=== PATIENT | male | born 1955 | race Caucasian/White ===

== ENCOUNTER → 2018-01-23 15:30 | Outpatient (CLI) | payer OTHER, SELFPAY ==
--- NOTE | 2018-01-23 15:37 | XR_ITS ---
XR ribs LT 2V HISTORY: ITS.REASON: LT CHEST WALL PAIN ORDERING PHYSICIAN: Nadir العراقي MD PATIENT AGE: 62 years Comparison: None FINDINGS: Multiple views of the Left ribs were obtained. No fracture or dislocation. No lytic or blastic change. IMPRESSION: Negative left RIBS. If pain persists, consider follow-up exam in 7-[address] with 3-D reformats.
--- NOTE | 2018-01-23 15:44 | XR_ITS ---
XR chest 2V HISTORY: ITS.REASON: LT CHEST WALL PAIN ORDERING PHYSICIAN: Nadir العراقي MD PATIENT AGE: 62 years COMPARISON: 03/18/2015 FINDINGS: The cardiomediastinal silhouette and pulmonary vascularity are within normal limits. There is increased density in the left lung base along the hemidiaphragm posteriorly with atelectasis or infiltrate.. Calcified granulomas present in the right midlung. Is hyperinflation with attenuation of the peripheral pulmonary vessels consistent with obstructive chronic bronchitis. No acute bony anomalies. IMPRESSION: COPD with patchy atelectasis or infiltrate in the left lung base
== END ==
PROVIDERS: Family Provider Family Medicine; PCP Family Medicine; Visit Provider Family Medicine
DX: R07.89 Other chest pain (principal)
CPT/HCPCS: 71046; 71100

== ENCOUNTER 2018-05-29 07:21 | Observation (INO) ==
[2018-05-29 07:45] LABS: Basophils % 0.5 % (0.1-2.0); Eosinophils # 0.1 K/mm3 (0.0-0.4); Hematocrit 49.6 % (42.0-52.0); Hemoglobin 16.8 g/dL (14.1-18.0); Lymphocytes # 2.2 K/mm3 (0.7-4.5); Lymphocytes % 33.9 % (10-50); Mean Corpuscular HGB Conc 33.9 g/dL (31.8-35.4); Mean Corpuscular Hemoglobin 32.7 pg (27.0-31.2); Mean Corpuscular Volume 96.3 fl (80-94); Mean Platelet Volume 6.4 fl (7.4-10.4); Monocytes # 0.4 K/mm3 (0.1-1.0); Monocytes % 6.9 % (1.7-9.3); Neutrophils # 3.6 K/mm3 (1.8-7.8); Neutrophils % 56.7 % (37.0-80.0); Platelet Count 219 K/mm3 (142-424); Red Blood Count 5.15 M/mm3 (4.60-6.20); Red Cell Distribution Width 12.2 % (11.5-17.5); White Blood Count 6.4 K/mm3 (4.8-10.8)
[2018-05-29 07:51] LABS: Prothrombin Time 10.3 seconds (9.4-11.8)
[2018-05-29 07:59] LABS: Anion Gap 15.2 mEq/L (5-15); Calcium 9.2 mg/dL (8.5-10.1); Potassium 4.2 mmoL/L (3.5-5.1)
--- NOTE | 2018-05-29 08:06 | Emergency Department Note ---
ED Disposition Referrals: Nadir العراقي MD [Primary Care Provider] - Attestation: On 05/29/18, the high probability of a clinically significant, sudden or life threatening deterioration of the following system(s) required my full and direct attention, intervention and personal management. The time I documented below is in addition to time spent performing reported procedures but includes the following listed in this critical care notation. Medical Decision Making Vital Signs: 05/29/18 07:22 05/29/18 07:48 05/29/18 07:51 Temperature 98.1 F Temperature Source Oral Pulse Rate [Left Radial] 163 H 152 H 74 Respiratory Rate 22 Blood Pressure [Right Arm] 136/86 127/72 113/78 Blood Pressure Mean [Right Arm] 102 90 89 Blood Pressure Source [Right Arm] Automatic Cuff Automatic Cuff Automatic Cuff Blood Pressure Position [Right Arm] Sitting Sitting Sitting 02 Sat by Pulse Oximetry 94 L Oxygen Delivery Method Room Air 05/29/18 07:54 05/29/18 08:02 05/29/18 08:23 Temperature Temperature Source Pulse Rate [Left Radial] 86 84 88 Respiratory Rate Blood Pressure [Right Arm] 122/72 112/79 100/80 L Blood Pressure Mean [Right Arm] 88 90 86 Blood Pressure Source [Right Arm] Automatic Cuff Automatic Cuff Automatic Cuff Blood Pressure Position [Right Arm] Sitting Sitting Sitting 02 Sat by Pulse Oximetry Oxygen Delivery Method - Lab Data Lab results reviewed: Yes: I reviewed the patient's lab results. Lab Results 05/29/18 07:40: WBC 6.4, RBC 5.15, Hgb 16.8, Hct 49.6, MCV 96.3 H, MCH 32.7 H, MCHC 33.9, RDW 12.2, Plt Count 219, MPV 6.4 L, Neut % (Auto) 56.7, Lymph % (Auto) 33.9, [place] % (Auto) 6.9, Eos % (Auto) 2.0, Baso % (Auto) 0.5, Neut # (A uto) 3.6, Lymph # (Auto) 2.2, [place] # (Auto) 0.4, Eos # (Auto) 0.1, Baso # (Auto) 0.0 05/29/18 07:40: Sodium 140, Potassium 4.2, Chloride 105, Carbon Dioxide 24, A nion Gap 15.2 H, BUN 15, Creatinine 0.97, Estimated Creat Clear 95, Estimated GFR 79, Est GFR ( Amer) 95, Glucose 153 H, Calcium 9.2, Troponin I 0.03 05/29/18 07:40: PT 10.3, INR 1.00 Result diagrams: 05/29/18 07:40 05/29/18 07:40 Orders (Tests/Meds): ED MEDICATIONS Generic Name Dose Route Start Last Admin Trade Name Freq PRN Reason Stop Dose Admin Diltiazem HCl 125 mg/ Sodium 125 mls @ 5 mls/hr 05/29/18 07:45 05/29/18 07:51 Chloride IV 06/28/18 07:44 5 mls/hr .Q25H TERRIE Administration Protocol 5 MG/HR Discontinued Medications Generic Name Dose Route Start Last Admin Trade Name Freq PRN Reason Stop Dose Admin Diltiazem HCl 20 mg 05/29/18 07:42 05/29/18 07:48 Cardizem 25mg/5ml Vial IV 05/29/18 07:43 20 mg ONCE ONE Administration ORDERS Category Date Time Status Chest XR -- portable [XR chest portable] Stat Exams 05/29/18 07:28 Taken TSH [Thyroid Stimulating Hormone] Stat Lab 05/29/18 07:40 Received ECG Request by /Kamar Stat Y 05/29/18 07:28 Stop Req - Radiology Data #1 Image(s): Chest Image Reviewed: Yes I reviewed the patient's radiology results, Yes I reviewed the patient's radiology image Preliminary Findings: Normal/NAD - ECG Data Tracing #1 EKG shows a atrial fibrillation with a ventricular rate of 155 bpm there is no major ST-T wave changes no evidence of acute ischemia normal axis no only EKG available for comparison Medical Decision Narrative: Patient was given IV Cardizem his heart rate decreased to 90 with steady blood with normal blood pressure. And felt well he had no complaints his EKG and monitor still shows an atrial fibrillation with a ventricular rate of 90. General Adult HPI - General Chief complaint: Arrhythmia/Palpitations Stated complaint: palpatations Mode of Arrival: Ambulatory Limitations: No Limitations Description of Symptoms (Recalled from ER Triage Doc. by RN): to ed per pvt car with c/o palpatations, "heart fluttering" starting last night. +SOB, +diaphoresis denies any chest pain. pt denies any hx of same. - History of Present Illness HPI narrative: Patient state he had an onset last night about 7 PM of rapid heartbeat no other symptoms no pain no shortness of breath no sweating no dyspnea he says he had an episode similar to this about 10 years ago P describes having some kind of shot in the doctor's office and it went away and he never had any problems since he denies any past cardiopulmonary history. Does not smoke he denies any intake of any stimulants. Relieving factors: none Exacerbating factors: none Associated symptoms: denies other symptoms. negative: chest pain, shortness of breath Treatments prior to arrival: none - Related Data Home Medications Medication Instructions Recorded Confirmed No Known Home Medications 05/29/18 05/29/18 Allergies Allergy/AdvReac Type Severity Reaction Status Date / Time Penicillin Allergy Unknown I-HIVES Uncoded 05/20/17 15:40 [facility] History - Hepatitis A Screen Drug use history?: No High risk sexual behaviors?: No History of sexually transmitted infection?: No Currently employed?: No Childcare worker?: No Do you have indoor plumbing?: Yes Do you have electricity?: Yes Attestation statement:: This patient has been screened for Hepatitis A risk factors. I have reviewed the patient's past medical history: Yes - Social History Alcohol Intake: current Alcohol Intake Frequency:: 3 or more drinks per day - Psychiatric History Expresses thoughts of harming self/others: None Suicide Plan Description: No Plan ROS Obtained: Yes All systems reviewed & no additional complaints - Constitutional Constitutional: Reports system reviewed and no additional complaints, except as docu - Eyes Eyes: Reports system reviewed and no additional complaints, except as docu - ENT Ears, Nose, Mouth, and Throat: Reports system reviewed and no additional complaints, except as docu - Cardiovascular Cardiovascular: Reports as per HPI, Denies chest pain, Denies diaphoresis, Reports irregular heart rhythm, Denies lightheadedness, Denies shortness of breath when lying down, Reports palpitations - Respiratory Respiratory: Yes system reviewed and no additional complaints, except as docu, Yes as per HPI, No cough, No dyspnea, No dyspnea on exertion - Gastrointestinal Gastrointestingal: Reports: system reviewed and no additional complaints, except as docu - Musculoskeletal Musculoskeletal: Reports decreased muscle mass - Integumentary/Breasts Skin/Breast: Reports system reviewed and no additional complaints, except as do cu - Neurologic Neurologic: Reports system reviewed and no additional complaints, except as docu - Endocrine Endocrine: Reports system reviewed and no additional complaints, except as docu - Hematologic/Lymphatic Henatologic/Lymphatic: Reports system reviewed and no additional complaints, except as docu Physical Exam - General General appearance: alert, in no apparent distress - Head Head exam: atraumatic, normocephalic, normal inspection - Eye Eye exam: Present: normal appearance, EOMI. Absent: scleral icterus, conjunctival redness, jaundice, conjunctival injection - ENT ENT exam: Present: normal exam, normal oropharynx, mucous membranes moist - Neck Neck exam: Present: normal inspection, full ROM. Absent: tenderness, meningismus, lymphadenopathy, thyromegaly - Chest Chest inspection: Present: normal inspection - Respiratory Respiratory exam: Present: normal lung sounds bilaterally. Absent: respiratory distress - Cardiovascular Cardiovascular exam: Present: tachycardia, irregular rhythm, normal heart sounds - Abdominal Exam Abdominal exam: Present: soft. Absent: distention, tenderness - Extremities Exam Extremities exam: Present: normal inspection, full ROM. Absent: tenderness, normal capillary refill, pedal edema, joint swelling, calf tenderness - Back Exam Back exam: Present: normal inspection, full ROM. Absent: tenderness - Neurological Exam Neurological exam: Present: alert, oriented X3, CN II-XII intact, normal gait. Absent: motor sensory deficit - Psychiatric Psychiatric exam: Present: normal affect, homicidal ideation - Skin Skin exam: Present: warm, intact, normal color. Absent: cyanosis - Lymphatic Lymphatic Findings: no adenopathy
--- NOTE | 2018-05-29 09:02 | Consult Report ---
Addendum entered and electronically signed by NIKI Dixon 05/29/18 15:19: Preliminary echo shows preserved LVEF. Telemetry now with bradycardia. Will reduce bisoprolol to 10 mg daily (or 5 mg BID). IV cardizem has been stopped. 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 Xarelto started. Would not proceed with cardioversion until patient has been on anticoagulation for 30 days. Monitor HR/BP overnight and adjust meds as needed. Original Note: History of Present Illness Consult date: 05/29/18 Requesting physician: Lita Correa Consult reason: atrial fibrillation Chief complaint: Palpitations, New onset A. fib Additional Medical History:: 1. ETOH use, daily 2. A. fib with RVR, 05/2018, newly diagnosed A. Questionable TIA many years ago with right side numbness but negative workup per patient 3. Family history of coronary artery disease in his mother with a heart attack in her 40s History of present illness: 62-year-old white male presented to the emergency department for continued palpitations. Patient relates onset of symptoms approximately 6 PM yesterday after bending over. States his heart rate began beating irregularly and rapid without cessation. Symptoms seemingly improved with rest but this a.m. when he awoke symptoms were still present and he decided to come in for evaluation. He does drink 3-6 beers per night and did take a generic Flonase yesterday for some sinus congestion. EKG in the ER showed atrial for ablation with a rapid ventricular response in the 150-160 bpm range. Patient's heart rate has responded well to IV Cardizem with current rate in the 90-100 bpm range. He denies chest pain, pressure or tightness. 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 TSH in the ER today is normal. Initial troponin is normal. Patient's is in the room with him and relates that patient does snore at night. Cardiology consulted for evaluation recommendations. [facility] History - *Social History Alcohol Intake: current Alcohol Intake Frequency:: 3 or more drinks per day - Psychiatric History Expresses thoughts of harming self/others: None Suicide Plan Description: No Plan Meds Home Medications Medication Instructions Recorded Confirmed Type No Known Home Medications 05/29/18 05/29/18 History Allergies Allergy/AdvReac Type Severity Reaction Status Date / Time Penicillins Allergy Hives Verified 05/29/18 09:06 Review of Systems - *Cardiovascular Reports rapid, pounding, or irregular heartbeat, Denies chest pain, Denies shortness of breath - *Respiratory Denies shortness of breath - *Gastrointestinal Denies abdominal pain, Denies loose stools - *Genitourinary Denies blood in urine - *Musculoskeletal Denies joint pain Exam Vital signs and Labs for Last 24 Hours: Temp Pulse Resp BP Pulse Ox 98.1 F 88 22 100/80 L 94 L 05/29/18 07:22 05/29/18 08:23 05/29/18 07:22 05/29/18 08:23 05/29/18 07:22 Laboratory Results - last 24 hr 05/29/18 07:40: WBC 6.4, RBC 5.15, Hgb 16.8, Hct 49.6, MCV 96.3 H, MCH 32.7 H, MCHC 33.9, RDW 12.2, Plt Count 219, MPV 6.4 L, Neut % (Auto) 56.7, Lymph % (Auto) 33.9, [place] % (Auto) 6.9, Eos % (Auto) 2.0, Baso % (Auto) 0.5, Neut # (Auto) 3.6, Lymph # (Auto) 2.2, [place] # (Auto) 0.4, Eos # (Auto) 0.1, Baso # (Aut o) 0.0 05/29/18 07:40: Sodium 140, Potassium 4.2, Chloride 105, Carbon Dioxide 24, Anion Gap 15.2 H, BUN 15, Creatinine 0.97, Estimated Creat Clear 95, Estimated GFR 79, Est GFR ( Amer) 95, Glucose 153 H, Calcium 9.2, Troponin I 0.03 05/29/18 07:40: PT 10.3, INR 1.00 05/29/18 07:40: TSH 1.45 I & O for Last 24 hours: Intake & Output 05/26/18 05/27/18 05/28/18 05/29/18 11:59 11:59 11:59 11:59 Weight 190 lb - *Routine Neck Exam Present: supple. Absent: JVD, carotid bruit - *Routine Respiratory Exam Present: CTA bilaterally. Absent: accessory muscle use, rales, rhonchi, wheezes - *Routine Cardiovascular Exam Present: irregularly irregular. Absent: murmur, gallop, rubs - *Routine Abdominal Exam Present: soft. Absent: tenderness, distended, guarding - *Routine Extremities Exam Absent: edema, calf tenderness - *Routine Neurological Exam Present: alert, oriented X3, moving all extremities Assessment and Plan (1) Atrial fibrillation with rapid ventricular response Current visit: Yes Status: Acute Category: Medical Code(s): I48.91 - Unspecified atrial fibrillation (2) Alcohol use Current visit: Yes Status: Acute Category: Social Hx Code(s): Z78.9 - Other specified health status (3) History of TIA (transient ischemic attack) Current visit: Yes Status: Acute Category: Medical Code(s): Z86.73 - Personal history of transient ischemic attack (TIA), and cerebral infarction without residual deficits - Assessment and plan all Dx Assessment and Plan for all problems:: 1. Obtain an echocardiogram to evaluate left ventricular size, function and valve status. 2. Add IV digoxin 0.25 mg x1 and assess response thereafter. 3. Continue IV Cardizem and titrate as blood pressure and heart rate allow. 4. Due to the patient's history of TIA (workup did not show CVA per patient), which places him at a CHADS-VASC score of 2, recommend starting a coagulation in the form of Xarelto 20 mg daily but will obtain CT of head prior to starting anticoagulation. 5. With history of snoring recommend workup for sleep apnea 6. With history of daily alcohol use, recommend cessation or severe reduction in use. 7. Further recommendations to follow pending above results.
--- NOTE | 2018-05-29 09:59 | Pharmacy Consult Notes ---
[facility] Pharmacy VTE Monitoring - Patient Demographics Admission date: 05/29/18 Report Date: 05/29/18 Time: 09:59 Allergies/Adverse Reactions: Patient Allergies Penicillins Allergy (Verified 05/29/18 09:06) Alex Height: 1.85 m Weight: 86.183 kg Patient Problems: Current Active Problems Atrial fibrillation with rapid ventricular response (Acute) Alcohol use (Acute) History of TIA (transient ischemic attack) (Acute) - VTE Risk Labs: VTE Related Lab Results Hgb 16.8 g/dL (14.1-18.0) 05/29/18 07:40 Hct 49.6 % (42.0-52.0) 05/29/18 07:40 Plt Count 219 K/mm3 (142-424) 05/29/18 07:40 PT 10.3 seconds (9.4-11.8) 05/29/18 07:40 INR 1.00 (0.9-1.1) 05/29/18 07:40 BUN 15 mg/dL (7-18) 05/29/18 07:40 Creatinine 0.97 mg/dL (0.70-1.30) 05/29/18 07:40 Estimated Creat Clear 95 mL/min (50-200) 05/29/18 07:40 - Prophylaxis VTE Prophylaxis Ordered?: Yes Types of VTE Prophylaxis: TEDS Knee High Location of Applied Device: Bilateral Lower Extremeties - VTE Diagnosis Confirmed Treatment or plan recommended: Continue Current Treatment
--- NOTE | 2018-05-29 10:45 | History & Physical Report ---
*Admission Date: 05/29/18 <Evelyn Lazo 05/29/18 10:45> *Chief complaint: palpitations <Evelyn Lazo 05/29/18 11:05> *History of present illness: Mr. Munoz is a 62-year-old white male who presented to the emergency department for palpitations. Patient states symptoms started approximately 7 PM yesterday after bending over outside while grilling. He states his heart rate began beating irregularly and rapid without cessation. This continued throughout the night and into the morning. He decided to come in for evaluation. An EKG in the ER showed atrial fib with a rapid ventricular response in the 150-160 bpm range. He was started on IV Cardizem and his HR improved and decreased into the 90-100 bpm range. He denies chest pain, pressure or tightness. 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 TSH in the ER today was normal. Initial troponin was normal. Patient's is in the room with him and relates that patient does snore at night. He does drink 3-6 beers per night and did take a generic Flonase yesterday for some sinus congestion. Cardiology was consulted for evaluation recommendations. <Evelyn Lazo 05/29/18 12:15> [facility] History Medical History: Reports:: Seizures, Transient Ischemic Attacks (TIA) <Evelyn Lazo 05/29/18 11:05> Other Surgeries: Yes: Hernia Repair <Evelyn Lazo 05/29/18 11:05> - *Social History Smoking Status: Never smoker <Evelyn Lazo 05/29/18 12:15> Alcohol Intake: current <Evelyn Lazo 05/29/18 10:45> Alcohol Intake Frequency:: 3 or more drinks per day <Evelyn Lazo 05/29/18 10:45> - Psychiatric History Expresses thoughts of harming self/others: None <Evelyn Lazo 05/29/18 10:45> Suicide Plan Description: No Plan <Evelyn Lazo 05/29/18 10:45> *Family Hx:: Cancer, Coronary Artery Disease <Evelyn Lazo 05/29/18 11:05> Review of Systems - Constitutional Denies chills, Denies weakness <Evelyn Lazo - 05/29/18 12:15> - Eyes Denies blurry vision, Denies double vision [facility] 12:15> - ENT Denies nasal congestion, Denies sore throat <[facility] 05/29/18 12:15> - *Cardiovascular Reports rapid, pounding, or irregular heartbeat, Denies chest pain, Denies shortness of breath <[facility] 05/29/18 12:15> - *Respiratory Denies cough, Denies shortness of breath <[facility] 05/29/18 12:15> - *Gastrointestinal Denies abdominal pain, Denies loose stools, Denies nausea, Denies vomiting <[facility] 05/29/18 12:15> - *Genitourinary Denies difficulty urinating, Denies painful urination <[facility] 05/29/18 12:15> - *Musculoskeletal Denies joint pain, Denies body aches <[facility] 05/29/18 12:15> - *Neurologic Reports tingling (right arm for the past few years), Denies headache(s), Denies dizziness, Denies weakness <CliftonEvelyn - 05/29/18 12:15> Meds Home Medications Medication Instructions Recorded Confirmed Type No Known Home Medications 05/29/18 05/29/18 History <SunnyLita 05/29/18 16:50> Allergies Allergy/AdvReac Type Severity Reaction Status Date / Time Penicillins Allergy Hives Verified 05/29/18 09:06 <SunnyLita 05/29/18 16:50> Exam Vital signs and Labs for Last 24 Hours: Temp Pulse Resp BP Pulse Ox 98 F 105 H 12 128/80 97 05/29/18 12:00 05/29/18 12:00 05/29/18 12:00 05/29/18 12:00 05/29/18 12:00 Laboratory Results - last 24 hr 05/29/18 07:40: WBC 6.4, RBC 5.15, Hgb 16.8, Hct 49.6, MCV 96.3 H, MCH 32.7 H, MCHC 33.9, RDW 12.2, Plt Count 219, MPV 6.4 L, Neut % (Auto) 56.7, Lymph % (Auto) 33.9, Peach % (Auto) 6.9, Eos % (Auto) 2.0, Baso % (Auto) 0.5, Neut # (Auto) 3.6, Lymph # (Auto) 2.2, Peach # (Auto) 0.4, Eos # (Auto) 0.1, Baso # (Auto) 0.0 05/29/18 07:40: Sodium 140, Potassium 4.2, Chloride 105, Carbon Dioxide 24, Anion Gap 15.2 H, BUN 15, Creatinine 0.97, Estimated Creat Clear 95, Estimated GFR 79, Est GFR ( Amer) 95, Glucose 153 H, Calcium 9.2, Troponin I 0.03 05/29/18 07:40: PT 10.3, INR 1.00 05/29/18 07:40: TSH 1.45 <Sound,Lita - 05/29/18 16:50> Temp Pulse Resp BP Pulse Ox 98.5 F 111 H 18 133/82 97 05/29/18 10:36 05/29/18 10:36 05/29/18 10:36 05/29/18 10:36 05/29/18 10:36 Laboratory Results - last 24 hr 05/29/18 07:40: WBC 6.4, RBC 5.15, Hgb 16.8, Hct 49.6, MCV 96.3 H, MCH 32.7 H, MCHC 33.9, RDW 12.2, Plt Count 219, MPV 6.4 L, Neut % (Auto) 56.7, Lymph % (Auto) 33.9, Peach % (Auto) 6.9, Eos % (Auto) 2.0, Baso % (Auto) 0.5, Neut # (Auto) 3.6, Lymph # (Auto) 2.2, Peach # (Auto) 0.4, Eos # (Auto) 0.1, Baso # (Auto) 0.0 05/29/18 07:40: Sodium 140, Potassium 4.2, Chloride 105, Carbon Dioxide 24, Anion Gap 15.2 H, BUN 15, Creatinine 0.97, Estimated Creat Clear 95, Estimated GFR 79, Est GFR ( Amer) 95, Glucose 153 H, Calcium 9.2, Troponin I 0.03 05/29/18 07:40: PT 10.3, INR 1.00 05/29/18 07:40: TSH 1.45 <Evelyn Lazo 05/29/18 12:15> I & O for Last 24 hours: Intake & Output 05/27/18 05/28/18 05/29/18 05/30/18 11:59 11:59 11:59 11:59 Intake Total 240 / 240 Balance 240 / 240 Weight 191 lb 3 oz <Lita Correa 05/29/18 16:50> Intake & Output 05/26/18 05/27/18 05/28/18 05/29/18 11:59 11:59 11:59 11:59 Weight 191 lb 3 oz <Evelyn Lazo 05/29/18 10:45> - Constitutional no acute distress <Evelyn Lazo 05/29/18 12:15> - *Routine HEENT Exam Head: Present: normocephalic <Evelyn Lazo 05/29/18 12:15> Eye: Present: EOMI, PERRL <Evelyn Lazo 05/29/18 12:15> ENT: Present: mucous membranes moist <Evelyn Lazo 05/29/18 12:15> - *Routine Neck Exam Present: supple. Absent: lymphadenopathy <Evelyn Lazo 05/29/18 12:15> - *Routine Respiratory Exam Present: CTA bilaterally <Evelyn Lazo 05/29/18 12:15> - *Routine Cardiovascular Exam Present: irregularly irregular <Evelyn Lazo 05/29/18 12:15> - *Routine Abdominal Exam Present: soft, normoactive bowel sounds. Absent: tenderness <Evelyn Lazo 05/29/18 12:15> - *Routine Extremities Exam Absent: cyanosis, clubbing, edema <Evelyn Lazo 05/29/18 12:15> - *Routine Skin Exam Present: warm. Absent: rash <Evelyn Lazo 05/29/18 12:15> - *Routine Neurological Exam Present: alert, oriented X3, CN II-XII intact. Absent: sensory deficit, motor deficit <Evelyn Lazo 05/29/18 12:15> H&P: Result - Impressions CXR - No prominent findings. There is question suggestion of subtle hazy appearance left infrahilar region towards left lower lobe.- Most likely technique along with perhaps mild atelectasis,. Difficult to exclude subtle infiltrate but correlation required, otherwise the chest unremarkable. Heart upper normal in size. No CHF. Head CT No acute appearing intracranial findings. Old infarct at right frontal lobe- unchanged since 2015... Small 4 x 5 mm lacunar infarct at lateral margin of the left thalamus. Favor old rather than recent, but has developed since 2015 studies. <Evelyn Lazo - 05/29/18 12:15> Assessment and Plan (1) Atrial fibrillation with rapid ventricular response Current visit: Yes Status: Acute Category: Medical Code(s): I48.91 - Unspecified atrial fibrillation (2) Alcohol use Current visit: Yes Status: Acute Category: Social Hx Code(s): Z78.9 - Other specified health status (3) History of TIA (transient ischemic attack) Current visit: Yes Status: Acute Category: Medical Code(s): Z86.73 - Personal history of transient ischemic attack (TIA), and cerebral infarction w ithout residual deficits <Evelyn Lazo - 05/29/18 12:11> (1) Atrial fibrillation with rapid ventricular response Current visit: Yes Status: Acute Category: Medical Code(s): I48.91 - Unspecified atrial fibrillation (2) Alcohol use Current visit: Yes Status: Acute Category: Social Hx Code(s): Z78.9 - Other specified health status (3) History of TIA (transient ischemic attack) Current visit: Yes Status: Acute Category: Medical Code(s): Z86.73 - Personal history of transient ischemic attack (TIA), and cerebral infarction without residual deficits <Lita Correa - 05/29/18 16:50> - Assessment and plan all Dx Assessment and Plan for all problems:: gave one dose of lovenox for anticoagulation. started on xarelto 20 mg QD. Patient was on and off the drip now. Will give him PO cardizem. Possible dc tomorrow. <Lita Correa - 05/29/18 16:50> Cardiology has seen the patient and ordered an echocardiogram. They gave him a dose of IV digoxin 0.25 mg x1 and plan to continue IV Cardizem and titrate as blood pressure and heart rate allow. Due to the patient's history of TIA, they recommend starting anticoagulation in the form of Xarelto 20 mg daily. Will discuss further care with Dr. Correa. <Evelyn Lazo - 05/29/18 12:15>
--- NOTE | 2018-05-30 09:30 | Discharge Summary ---
General - General Admission date:: 05/29/18 Discharge date: 05/30/18 HPI HPI: Mr. Munoz is a 62-year-old white male who presented to the emergency department for palpitations. Patient states symptoms started approximately 7 PM yesterday after bending over outside while grilling. He states his heart rate began beating irregularly and rapid without cessation. This continued throughout the night and into the morning. He decided to come in for evaluation. An EKG in the ER showed atrial fib with a rapid ventricular response in the 150-160 bpm range. He was started on IV Cardizem and his HR improved and decreased into the 90-100 bpm range. He denies chest pain, pressure or tightness. 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 TSH in the ER today was normal. Initial troponin was normal. Patient's is in the room with him and relates that patient does snore at night. He does drink 3-6 beers per night and did take a generic Flonase yesterday for some sinus congestion. Cardiology was consulted for evaluation recommendations. Hospital Course Hospital Course: Patient was admitted to our facility for new onset A.Fib and was started on Cardizem drip. He was weaned off the drip and started on PO cardizem. He was also started on Xarelto for his anticoagulation after one dose of lovenox in the hospital given his prior TIA. His CHADS-VAsc score is 3. Patient is stable but still in A.fib today upon discharge but rate controlled with bisprolol and cardizem. He was given 2 weeks supply of Xarelto and advised to f/u in office in a week for getting this medication approved. He voiced understanding. Objective Vital signs: Temp Pulse Resp BP Pulse Ox 97.7 F 74 17 121/69 99 05/30/18 07:38 05/30/18 07:38 05/30/18 07:38 05/30/18 07:38 05/30/18 07:38 - *Routine HEENT Exam Head: Present: normocephalic Eye: Present: EOMI ENT: Present: mucous membranes moist - *Routine Neck Exam Present: supple - *Routine Respiratory Exam Present: CTA bilaterally - *Routine Cardiovascular Exam Present: RRR - *Routine Abdominal Exam Present: soft, normoactive bowel sounds - *Routine Skin Exam Present: intact - *Routine Neurological Exam Present: alert, oriented X3 DS: Diagnosis - Discharge Diagnosis (1) Atrial fibrillation with rapid ventricular response Status: Acute (2) Alcohol use Status: Acute (3) History of TIA (transient ischemic attack) Status: Acute Discharge Plan - Patient Discharge Instructions ACTIVITY: Continue current activity DIET: continue same diet Additional Instructions: 2 weeks supply of xarelto samples given to patient today. Will work on getting in approved next office visit. - Follow up Plan Follow up with: Nadir العراقي MD [Primary Care Provider] - 1 week Disposition: Home, Self-Senior Living Medications: Home Medications Medication Instructions Recorded Confirmed Type Bisoprolol Fumarate [Zebeta 5mg 5 mg PO BID 30 Days #60 tablet 05/30/18 Rx tablet] Rivaroxaban [Xarelto 10mg tablet] 20 mg PO QPMWM 30 Days #30 tablet 05/30/18 Rx dilTIAZem HCl [Cardizem 180mg ER 180 mg PO DAILY 30 Days #30 05/30/18 Rx capsule] cap.er.24h Prescriptions/Medication Reconciliation: New Bisoprolol Fumarate [Zebeta 5mg tablet] 5 mg PO BID 30 Days #60 tablet dilTIAZem HCl [Cardizem 180mg ER capsule] 180 mg PO DAILY 30 Days #30 cap.er.24h Rivaroxaban [Xarelto 10mg tablet] 20 mg PO QPMWM 30 Days #30 tablet
== END 2018-05-30 10:47 | disposition home or self-care (01) ==
LOC: ER 07:21 → 2ND 07:21
PROVIDERS: ADMIT Emergency Medicine; ATTEND Emergency Medicine
CPT/HCPCS: 70470; 71010; 71045; 80048; 84443; 84484; 85025; 85610; 93005; 93306; 96365; 96375; 99285; G0378; Q9967

== ENCOUNTER 2018-08-24 21:25 | Observation (INO) ==
--- NOTE | 2018-08-24 21:50 | Emergency Department Note ---
ED Disposition Clinical Impression: Colitis, BRBPR (bright red blood per rectum) Disposition: Home, Self-Care Condition on Discharge: Good Instructions: DI for Colitis Additional Instructions: fluids and call pcp in am for follow up - hold angleralto at this time Referrals: Nadir العراقي MD [Primary Care Provider] - - Critical Care Critical Care Time: No Attestation: On , the high probability of a clinically significant, sudden or life th reatening deterioration of the following system(s) required my full and direct attention, intervention and personal management. The time I documented below is in addition to time spent performing reported procedures but includes the following listed in this critical care notation. Medical Decision Making - Medical Records Medical records reviewed: Yes: I reviewed the patient's medical records. - Chun Inquiry Pt receiving controlled substance: No Vital Signs: 08/24/18 21:27 08/24/18 21:33 08/24/18 22:03 Temperature 98.1 F 98.1 F Temperature Source Oral Oral Pulse Rate [Right Radial] 66 66 70 Respiratory Rate 18 18 18 Blood Pressure [Right Arm] 140/79 140/79 145/74 H Blood Pressure Mean [Right Arm] 99 99 97 Blood Pressure Source [Right Arm] Automatic Cuff Blood Pressure Position [Right Arm] Supine 02 Sat by Pulse Oximetry 93 L 93 L 95 Oxygen Delivery Method Room Air - Lab Data Lab results reviewed: Yes: I reviewed the patient's lab results. Lab Results 08/24/18 21:45: Urine Color Yellow, Urine Appearance Clear, Urine pH 6.5, Ur Specific Belcher 1.020, Urine Protein Negative, Urine Glucose (UA) Negative, Urine Ketones Negative, Urine Blood Trace-l, Urine Nitrate Negative, Urine Bilirubin Negative, Urine Urobilinogen 0.2, Ur Leukocyte Esterase Negative, Urine WBC Occasional, Ur Squamous Epith Cells Occasional, Urine Bacteria Trace 08/24/18 21:45: Stool Occult Blood Positive A 08/24/18 21:45: WBC 7.0, RBC 4.64, Hgb 14.9, Hct 43.3, MCV 93.4, MCH 32.1 H, MCHC 34.3, RDW 12.1, Plt Count 246, MPV 6.9 L, Neut % (Auto) 52.9, Lymph % (Auto) 36.7, Wells % (Auto) 7.5, Eos % (Auto) 2.4, Baso % (Auto) 0.5, Neut # (Auto) 3.7, Lymph # (Auto) 2.6, Wells # (Auto) 0.5, Eos # (Auto) 0.2, Baso # (Auto) 0.0 08/24/18 21:45: Sodium 140, Potassium 4.2, Chloride 105, Carbon Dioxide 26, Anion Gap 13.2, BUN 18, Creatinine 1.00, Estimated Creat Clear 93, Estimated GFR 76, Est GFR ( Amer) 92, Glucose 102, Calcium 9.1, Total Bilirubin 0.4, AST 14 L, ALT 28, Alkaline Phosphatase 57, Total Protein 7.4, Albumin 3.6, Faye bulin 3.8 H, Albumin/Globulin Ratio 0.9 L, Amylase 39, Lipase 136 Result diagrams: 08/24/18 21:45 08/24/18 21:45 Orders (Tests/Meds): ED MEDICATIONS Generic Name Dose Route Start Last Admin Trade Name Freq PRN Reason Stop Dose Admin Sodium Chloride 1,000 mls @ 999 mls/hr 08/24/18 21:45 08/24/18 21:53 Sod Chlor 0.9% 1000ml Bag IV 08/24/18 22:45 999 mls/hr .Q1H1M TERRIE Administration Sodium Chloride 10 ml 08/24/18 21:39 Saline Flush 10ml Syringe IV 09/23/18 21:38 NEEDED PRN Maintain IV Site ORDERS Category Date Time Status CT abdomen pelvis w con Stat Cat Scan 08/24/18 21:39 Ordered - CT Data CT Scan: Abdomen, Pelvis Time Received: 00:[address] Reviewed: Yes: I have viewed the radiologist's interpretation Preliminary Findings: Abnormal (see report) Nausea/Vomiting/Diarrhea HPI - General Chief complaint: Abdominal Pain Stated complaint: abd cramping ,blood in stools Time Seen by Provider: 08/24/18 21:45 Mode of Arrival: Family Vehicle Source of Information: Patient, Spouse, Medical Record Limitations: No Limitations Description of Symptoms (Recalled from ER Triage Doc. by RN): pt states that approx 1 hour ago he began having abdominal cramping and then went to the bathroom and had a large loose stool and it was a beet red color. pt states he takes xarelto for afib. pt states he had pepto 1 week ago. pt denies other sy mptoms. states this hasnt ever happened before - History of Present Illness HPI Narrative: a few hrs ago had crampy abd pain with brrb - no hx of same - on meds for a fib including ed LEROY complaint: abdominal pain Onset (ago): hour(s) Description of Diarrhea: bloody Associated Abdominal Pain: Yes Location of pain: diffuse Severity: moderate Quality: cramping Context: anticoagulant use Associated symptoms: denies other symptoms - Related Data Home Medications Medication Instructions Recorded Confirmed Bisoprolol Fumarate [Bisoprolol 5 mg PO BID 08/24/18 08/24/18 5mg Tablet] Rivaroxaban [Xarelto 20mg Tablet] 20 mg PO DAILY 08/24/18 08/24/18 Allergies Allergy/AdvReac Type Severity Reaction Status Date / Time Penicillins Allergy Hives Verified 08/24/18 21:38 [facility] History - Hepatitis A Screen Drug use history?: No High risk sexual behaviors?: No History of sexually transmitted infection?: No Currently employed?: No Childcare worker?: No Do you have indoor plumbing?: Yes Do you have electricity?: Yes Attestation statement:: This patient has been screened for Hepatitis A risk factors. I have reviewed the patient's past medical history: Yes Medical History: Reports:: Atrial Fibrillation, Transient Ischemic Attacks (TIA) Denies:: Cancer, Diabetes Mellitus Type 1, Diabetes Mellitus Type 2, MRSA Laterality Cases: Bilateral: Arthroscopy Knee Other Surgeries: Yes: Hernia Repair Amputation: No Fractures: No - Social History Smoking Status: Former smoker Alcohol Intake: former Alcohol Intake Frequency:: 0-2 drinks per day Substance Use Type: denies use Occupational Status: employed Housing: house Household Members: spouse - Psychiatric History Expresses thoughts of harming self/others: None Suicide Plan Description: No Plan Family Hx:: Cancer, Coronary Artery Disease Comment: Mother-CAD ROS Obtained: Yes All systems reviewed & no additional complaints - Constitutional Constitutional: Denies fever(s) - Eyes Eyes: Denies change in vision - ENT Ears, Nose, Mouth, and Throat: Denies sore throat - Cardiovascular Cardiovascular: Denies chest pain - Respiratory Respiratory: No cough - Gastrointestinal Gastrointestingal: Reports: abdominal pain, bright red blood in stools. Denies: vomiting - Genitourinary Male Genitourinary: Denies hematuria - Musculoskeletal Musculoskeletal: Denies joint pain, Denies joint swelling - Integumentary/Breasts Skin/Breast: Denies rash - Neurologic Neurologic: Denies seizure-like activity Physical Exam - General General appearance: alert - Head Head exam: normocephalic - Eye Eye exam: Present: PERRL, EOMI - ENT ENT exam: Present: mucous membranes moist - Neck Neck exam: Present: trachea midline - Respiratory Respiratory exam: Present: normal lung sounds bilaterally. Absent: respiratory distress - Cardiovascular Cardiovascular exam: Present: regular rate, systolic murmur - Abdominal Exam Abdominal exam: Present: soft. Absent: tenderness, guarding Abdominal tenderness: Present: diffuse, mild - Extremities Exam Extremities exam: Present: full ROM - Neurological Exam Neurological exam: Present: alert, oriented X3, CN II-XII intact - Psychiatric Psychiatric exam: Present: normal affect - Skin Skin exam: Absent: rash
[2018-08-24 21:55] LABS: Microscopic, Urine URINE MICROSCOPIC (MICROSCOPIC)
[2018-08-24 21:57] LABS: Basophils % 0.5 % (0.1-2.0); Eosinophils # 0.2 K/mm3 (0.0-0.4); Eosinophils % 2.4 % (0.1-12.0); Hematocrit 43.3 % (42.0-52.0); Hemoglobin 14.9 g/dL (14.1-18.0); Lymphocytes # 2.6 K/mm3 (0.7-4.5); Lymphocytes % 36.7 % (10-50); Mean Corpuscular HGB Conc 34.3 g/dL (31.8-35.4); Mean Corpuscular Hemoglobin 32.1 pg (27.0-31.2); Mean Corpuscular Volume 93.4 fl (80-94); Mean Platelet Volume 6.9 fl (7.4-10.4); Monocytes # 0.5 K/mm3 (0.1-1.0); Monocytes % 7.5 % (1.7-9.3); Neutrophils # 3.7 K/mm3 (1.8-7.8); Neutrophils % 52.9 % (37.0-80.0); Platelet Count 246 K/mm3 (142-424); Red Blood Count 4.64 M/mm3 (4.60-6.20); Red Cell Distribution Width 12.1 % (11.5-17.5)
[2018-08-24 22:04] LABS: Appearance,Urine CLEAR (Clear); Bilirubin,Urine Negative (Negative); Blood, Urine TRACE-L (Negative); Color,Urine YELLOW (Yellow); Glucose,Urine (UA) Negative (Negative); Ketones,Urine Negative (Negative); Leukocyte Esterase,Urine Negative (Negative); PH,Urine 6.5 (5.0-8.5); Protein,Urine Negative (Negative); Urobilinogen,Urine 0.2 EU/dl (0.2)
[2018-08-24 22:10] LABS: Albumin Level 3.6 gm/dL (3.4-5.0); Albumin/Globulin Ratio 0.9 (1.1-1.8); Anion Gap 13.2 mEq/L (5-15); Bilirubin,Total 0.4 mg/dL (0.2-1.0); Calcium 9.1 mg/dL (8.5-10.1); Globulin 3.8 gm/dl (1.3-3.2); Potassium 4.2 mmoL/L (3.5-5.1); Total Protein,Serum 7.4 gm/dL (6.4-8.2)
[2018-08-24 22:20] LABS: Bacteria,Urine Trace /lpf; Squamous Epithelial Cell,Urine Occasional #/hpf (0-5); WBC,Urine Occasional #/hpf (0-3)
[2018-08-25 00:37] LABS: Basophils # 0.1 K/mm3 (0-0.2); Basophils % 0.5 % (0.1-2.0); Eosinophils # 0.1 K/mm3 (0.0-0.4); Eosinophils % 1.3 % (0.1-12.0); Lymphocytes # 3.8 K/mm3 (0.7-4.5); Lymphocytes % 37.4 % (10-50); Mean Corpuscular HGB Conc 34.2 g/dL (31.8-35.4); Mean Corpuscular Hemoglobin 32.4 pg (27.0-31.2); Mean Platelet Volume 6.8 fl (7.4-10.4); Monocytes # 0.6 K/mm3 (0.1-1.0); Neutrophils # 5.5 K/mm3 (1.8-7.8); Neutrophils % 54.9 % (37.0-80.0); Platelet Count 254 K/mm3 (142-424); Red Cell Distribution Width 12.2 % (11.5-17.5); White Blood Count 10.1 K/mm3 (4.8-10.8)
[2018-08-25 00:48] LABS: Hemoglobin 12.7 g/dL (14.1-18.0)
[2018-08-25 06:48] LABS: Basophils % 0.3 % (0.1-2.0); Eosinophils % 0.5 % (0.1-12.0); Hematocrit 31.5 % (42.0-52.0); Lymphocytes # 1.7 K/mm3 (0.7-4.5); Lymphocytes % 26.1 % (10-50); Mean Corpuscular Volume 94.2 fl (80-94); Mean Platelet Volume 7.4 fl (7.4-10.4); Monocytes # 0.3 K/mm3 (0.1-1.0); Monocytes % 5.2 % (1.7-9.3); Neutrophils # 4.3 K/mm3 (1.8-7.8); Neutrophils % 67.8 % (37.0-80.0); Platelet Count 193 K/mm3 (142-424); Red Blood Count 3.35 M/mm3 (4.60-6.20); Red Cell Distribution Width 12.3 % (11.5-17.5); White Blood Count 6.4 K/mm3 (4.8-10.8)
[2018-08-25 06:57] LABS: Anion Gap 12.2 mEq/L (5-15); Potassium 4.2 mmoL/L (3.5-5.1)
[2018-08-25 07:21] LABS: Hemoglobin 10.7 g/dL (14.1-18.0)
--- NOTE | 2018-08-25 07:24 | Pharmacy Consult Notes ---
[facility] Pharmacy VTE Monitoring - Patient Demographics Admission date: 08/24/18 Report Date: 08/25/18 Time: 07:24 Allergies/Adverse Reactions: Patient Allergies Penicillins Allergy (Verified 08/24/18 21:38) Hives Height: 1.83 m Weight: 86.183 kg Patient Problems: Current Active Problems Colitis (Acute) BRBPR (bright red blood per rectum) (Acute) - VTE Risk Labs: VTE Related Lab Results Hgb 10.7 g/dL (14.1-18.0) L D 08/25/18 06:25 Hct 31.5 % (42.0-52.0) L 08/25/18 06:25 Plt Count 193 K/mm3 (142-424) 08/25/18 06:25 BUN 16 mg/dL (7-18) 08/25/18 06:25 Creatinine 0.74 mg/dL (0.70-1.30) D 08/25/18 06:25 Estimated Creat Clear 93 mL/min (50-200) 08/25/18 06:25 Was VTE Risk Assessment Performed: Yes VTE Score: 2 VTE Risk Level: Very Low Risk - Prophylaxis VTE Prophylaxis Ordered?: Yes Types of VTE Prophylaxis: TEDS Knee High Location of Applied Device: Bilateral Lower Extremeties - VTE Diagnosis Confirmed Treatment or plan recommended: Continue Current Treatment
[2018-08-25 07:36] LABS: Calcium 7.8 mg/dL (8.5-10.1)
--- NOTE | 2018-08-25 08:47 | History & Physical Report ---
*Admission Date: 08/24/18 *Chief complaint: Colitis *History of present illness: Mr. Munoz is a 63yo WM with history of Afib treated with Xarelto. He reports he had been feeling fine until yesterday when he had a large, loose bloody BM at home and presented to the ED for further evaluation. Upon arrival, his labs were fairly unremarkable. His abdominal CT scan showed inflammatory/infectious changes as well as diverticulosis without diverticulitis and recommended colonoscopy for further evaluation. The initial plan was for discharge home from the ED and for him to followup with PCP as an outpatient, however, after an acute vasovagal episode with decreased bp and pulse as well as some brief mental status changes while in the ED, he was admitted for observation and further evaluation. This morning he does not feel much better. He has continued with multiple loose, bloody BM's overnight. He denies any pain or lightheadedness and notes only that he feels "very tired." His hemoglobin continues to trend down. [facility] [place] History Medical History: Reports:: Atrial Fibrillation, Seizures, Transient Ischemic Attacks (TIA) Denies:: Cancer, Diabetes Mellitus Type 1, Diabetes Mellitus Type 2, MRSA *Have you ever received a pneumonia vaccine?: No *Have you received a flu vaccine this season?: Yes Laterality Cases: Bilateral: Arthroscopy Knee Other Surgeries: Yes: Hernia Repair Amputation: No Fractures: No - *Social History Educational Level: Completed High School Smoking Status: Former smoker Alcohol Intake: former Alcohol Intake Frequency:: holidays/special occasions only Substance Use Type: denies use *Occupational Status:: employed Housing: house Household Members: spouse *Travel in the last 8 weeks: None - Psychiatric History Expresses thoughts of harming self/others: None Suicide Plan Description: No Plan Family Hx:: Cancer, Coronary Artery Disease Review of Systems - Constitutional Reports fatigue, Reports weakness, Denies body ache(s), Denies chills, Denies fever(s), Denies headache(s) - Eyes Denies change in vision - ENT Denies nasal congestion, Denies sore throat, Denies dizziness - *Cardiovascular Reports fainting, Denies chest pain, Denies shortness of breath, Denies irregular heart rhythm, Denies lightheadedness - *Respiratory Denies chest congestion, Denies cough - *Gastrointestinal Reports abdominal pain, Reports cramping, Reports loose stools, Reports bright, red blood in stools, Denies nausea, Denies vomiting - *Genitourinary Denies difficulty urinating - *Musculoskeletal Denies muscle weakness, Denies body aches - *Neurologic Reports fainting, Denies unsteadiness, Denies dizziness, Denies headache(s), Denies seizure-like activity - Hematologic/Lymphatic Denies enlarged lymph nodes Meds Home Medications Medication Instructions Recorded Confirmed Type Bisoprolol Fumarate [Bisoprolol 5 mg PO BID 08/24/18 08/24/18 History 5mg Tablet] Rivaroxaban [Xarelto 20mg Tablet] 20 mg PO DAILY 08/24/18 08/24/18 History Magnesium Oxide/Magnesium 300 mg PO DAILY 08/25/18 08/25/18 History [Magnesium 300 mg Capsule] Allergies Allergy/AdvReac Type Severity Reaction Status Date / Time Penicillins Allergy Hives Verified 08/24/18 21:38 Exam Vital signs and Labs for Last 24 Hours: Temp Pulse Resp BP Pulse Ox 98.1 F 74 17 99/63 L 100 08/25/18 08:00 08/25/18 08:00 08/25/18 08:00 08/25/18 08:00 08/25/18 08:00 Laboratory Results - last 24 hr 08/24/18 21:45: Urine Color Yellow, Urine Appearance Clear, Urine pH 6.5, Ur Specific [place] 1.020, Urine Protein Negative, Urine Glucose (UA) Negative, Urine Ketones Negative, Urine Blood Trace-l, Urine Nitrate Negative, Urine Bilirubin Negative, Urine Urobilinogen 0.2, Ur Leukocyte Esterase Negative, Urine WBC Occasional, Ur Squamous Epith Cells Occasional, Urine Bacteria Trace 08/24/18 21:45: Stool Occult Blood Positive A 08/24/18 21:45: WBC 7.0, RBC 4.64, Hgb 14.9, Hct 43.3, MCV 93.4, MCH 32.1 H, MCHC 34.3, RDW 12.1, Plt Count 246, MPV 6.9 L, Neut % (Auto) 52.9, Lymph % (Auto) 36.7, [place] % (Auto) 7.5, Eos % (Auto) 2.4, Baso % (Auto) 0.5, Neut # (A uto) 3.7, Lymph # (Auto) 2.6, [place] # (Auto) 0.5, Eos # (Auto) 0.2, Baso # (Auto) 0.0 08/24/18 21:45: Sodium 140, Potassium 4.2, Chloride 105, Carbon Dioxide 26, Anion Gap 13.2, BUN 18, Creatinine 1.00, Estimated Creat Clear 93, Estimated GFR 76, Est GFR ( Amer) 92, Glucose 102, Calcium 9.1, Total Bilirubin 0.4, AST 14 L, ALT 28, Alkaline Phosphatase 57, Total Protein 7.4, Albumin 3.6, Globulin 3.8 H, Albumin/Globulin Ratio 0.9 L, Amylase 39, Lipase 136 08/25/18 00:00: Stl Aeromonas (PCR) Not detected, Stl C. cayetanensis PCR Not detected, Stool Rotavirus (PCR) Not detected, Stl Adenov F 40/41 PCR Not detected, Stool Astrovirus (PCR) Not detected, Stool Campylobacter PCR Not detected, Stl C.difficile Tox PCR Not detected, Stool Cryptosporidium PCR Not detected, Stl E.coli Shiga Tox PCR Not detected, Stool E coli O157 PCR Not detected, Stl Enterotoxigenic E PCR Not detected, Stool EPEC (PCR) Not detected, Stool EAEC (PCR) Not detected, Stl E. histolytica PCR Not detected, Stool Giardia Lamblia PCR Not detected, Stool Salmonella PCR Not detected, Stool Sa povirus (PCR) Not detected, Stl P. shigelloides PCR Not detected, Stl Shigella/EIEC PCR Not detected, St Y.enterocolitica PCR Not detected, Stool Vibrio (PCR) Not detected, Stl Vibrio cholerae PCR Not detected, Stl Norovirus GI/GII PCR Not detected 08/25/18 00:00: Troponin I < 0.02 08/25/18 00:23: POC Glucose 97 08/25/18 00:30: WBC 10.1 D, RBC 3.90 L, Hgb 12.7 L D, Hct 37.0 L, MCV 95.0 H, MCH 32.4 H, MCHC 34.2, RDW 12.2, Plt Count 254, MPV 6.8 L, Neut % (Auto) 54.9, Lymph % (Auto) 37.4, [place] % (Auto) 6.0, Eos % (Auto) 1.3, Baso % (Auto) 0.5, Neut # (Auto) 5.5, Lymph # (Auto) 3.8, [place] # (Auto) 0.6, Eos # (Auto) 0.1, Baso # (Auto) 0.1 08/25/18 06:25: WBC 6.4 D, RBC 3.35 L, Hgb 10.7 L D, Hct 31.5 L, MCV 94.2 H, MCH 32.0 H, MCHC 34.0, RDW 12.3, Plt Count 193, MPV 7.4, Neut % (Auto) 67.8, Lymph % (Auto) 26.1, [place] % (Auto) 5.2, Eos % (Auto) 0.5, Baso % (Auto) 0.3, Neut # (Auto) 4.3, Lymph # (Auto) 1.7, [place] # (Auto) 0.3, Eos # (Auto) 0.0, Baso # (Auto) 0.0 08/25/18 06:25: Sodium 141, Potassium 4.2, Chloride 109 H, Carbon Dioxide 24, Anion Gap 12.2, BUN 16, Creatinine 0.74 D, Estimated Creat Clear 93, Estimated GFR 107, Est GFR ( Amer) 130 D, Glucose 110 H, Calcium 7.8 L D I & O for Last 24 hours: Intake & Output 08/22/18 08/23/18 08/24/18 08/25/18 11:59 11:59 11:59 11:59 Intake Total 3000 / 3000 Balance 3000 / 3000 Weight 190 lb Radiology Reports for the Last 24 Hours: 08/24/18 CT abdomen: IMPRESSION: 1. There is a long segment of thickening of the colon from the hepatic flexure to the mid transverse colon with mild stranding of the pericolic fat. This could be related to inflammatory or infectious change/colitis or even neoplasm. Colonoscopy may be of further value. 2. Diverticulosis. - Constitutional no acute distress - *Routine HEENT Exam Head: Present: normocephalic, atraumatic Eye: Present: PERRL, normal accommodation ENT: Present: mucous membranes moist - *Routine Neck Exam Present: supple, full ROM. Absent: lymphadenopathy, thyromegaly, tenderness - *Routine Respiratory Exam Present: CTA bilaterally - *Routine Cardiovascular Exam Present: RRR - *Routine Abdominal Exam Present: soft, normoactive bowel sounds. Absent: tenderness, distended, rebound, guarding, rigid, organomegaly, mass - *Routine Extremities Exam Present: full ROM, pulses intact. Absent: edema, calf tenderness - *Routine Neurological Exam Present: alert, oriented X3, moving all extremities, normal speech Assessment and Plan - Assessment and plan all Dx Assessment and Plan for all problems:: Will start levaquin and consult surgery.
[2018-08-25 12:41] LABS: Basophils % 0.2 % (0.1-2.0); Eosinophils # 0.1 K/mm3 (0.0-0.4); Eosinophils % 0.9 % (0.1-12.0); Hemoglobin 10.9 g/dL (14.1-18.0); Lymphocytes # 1.6 K/mm3 (0.7-4.5); Lymphocytes % 30.7 % (10-50); Mean Corpuscular HGB Conc 34.1 g/dL (31.8-35.4); Mean Corpuscular Hemoglobin 32.1 pg (27.0-31.2); Mean Corpuscular Volume 94.2 fl (80-94); Mean Platelet Volume 6.7 fl (7.4-10.4); Monocytes # 0.3 K/mm3 (0.1-1.0); Monocytes % 5.8 % (1.7-9.3); Neutrophils # 3.4 K/mm3 (1.8-7.8); Neutrophils % 62.4 % (37.0-80.0); Platelet Count 226 K/mm3 (142-424); Red Blood Count 3.39 M/mm3 (4.60-6.20); Red Cell Distribution Width 12.3 % (11.5-17.5); White Blood Count 5.4 K/mm3 (4.8-10.8)
--- NOTE | 2018-08-25 12:42 | Consult Report ---
*Admission Date: 08/24/18 *Chief complaint: Bloody bowel movements *History of present illness: The following is copied from admission history and physical: Mr. Munoz is a 63yo WM with history of Afib treated with Xarelto. He reports he had been feeling fine until yesterday when he had a large, loose bloody BM at home and presented to the ED for further evaluation. Upon arrival, his labs were fairly unremarkable. His abdominal CT scan showed inflammatory/infectious changes as well as diverticulosis without diverticulitis and recommended colonoscopy for further evaluation. The initial plan was for discharge home from the ED and for him to followup with PCP as an outpatient, however, after an acute vasovagal episode with decreased bp and pulse as well as some brief mental status changes while in the ED, he was admitted for observation and further evaluation. This morning he does not feel much better. He has continued with multiple loose, bloody BM's overnight. He denies any pain or lightheadedness and notes only that he feels "very tired." His hemoglobin continues to trend down. Patient has not had prior colonoscopy. Denies family history of colon cancer. Review of Systems - Constitutional Denies anorexia - Eyes Denies change in vision - ENT Denies abnormal hearing - *Cardiovascular Denies chest pain - *Respiratory Denies shortness of breath - *Gastrointestinal Denies abdominal pain - *Genitourinary Denies difficulty urinating - *Musculoskeletal Denies abnormal walking - *Neurologic Reports fainting, Reports weakness, Denies unsteadiness, Denies dizziness, Denies headache(s), Denies seizure-like activity, Denies dizziness [facility] History Medical History: Reports:: Atrial Fibrillation, Seizures, Transient Ischemic Attacks (TIA) Denies:: Cancer, Diabetes Mellitus Type 1, Diabetes Mellitus Type 2, MRSA *Have you ever received a pneumonia vaccine?: No *Have you received a flu vaccine this season?: Yes Laterality Cases: Bilateral: Arthroscopy Knee Other Surgeries: Yes: Hernia Repair Amputation: No Fractures: No - *Social History Educational Level: Completed High School Smoking Status: Former smoker Alcohol Intake: former Alcohol Intake Frequency:: holidays/special occasions only Substance Use Type: denies use *Occupational Status:: employed Housing: house Household Members: spouse *Travel in the last 8 weeks: None - Psychiatric History Expresses thoughts of harming self/others: None Suicide Plan Description: No Plan Family Hx:: Cancer, Coronary Artery Disease Meds Home Medications Medication Instructions Recorded Confirmed Type Bisoprolol Fumarate [Bisoprolol 5 mg PO BID 08/24/18 08/24/18 History 5mg Tablet] Rivaroxaban [Xarelto 20mg Tablet] 20 mg PO DAILY 08/24/18 08/24/18 History Magnesium Oxide/Magnesium 300 mg PO DAILY 08/25/18 08/25/18 History [Magnesium 300 mg Capsule] Allergies Allergy/AdvReac Type Severity Reaction Status Date / Time Penicillins Allergy Hives Verified 08/24/18 21:38 Exam Vital signs and Labs for Last 24 Hours: Temp Pulse Resp BP Pulse Ox 98.1 F 74 17 99/63 L 100 08/25/18 08:00 08/25/18 08:00 08/25/18 08:00 08/25/18 08:00 08/25/18 08:00 Laboratory Results - last 24 hr 08/24/18 21:45: Urine Color Yellow, Urine Appearance Clear, Urine pH 6.5, Ur Specific [place] 1.020, Urine Protein Negative, Urine Glucose (UA) Negative, Urine Ketones Negative, Urine Blood Trace-l, Urine Nitrate Negative, Urine Bilirubin Negative, Urine Urobilinogen 0.2, Ur Leukocyte Esterase Negative, Urine WBC Occasional, Ur Squamous Epith Cells Occasional, Urine Bacteria Trace 08/24/18 21:45: Stool Occult Blood Positive A 08/24/18 21:45: WBC 7.0, RBC 4.64, Hgb 14.9, Hct 43.3, MCV 93.4, MCH 32.1 H, MCHC 34.3, RDW 12.1, Plt Count 246, MPV 6.9 L, Neut % (Auto) 52.9, Lymph % (Auto) 36.7, [place] % (Auto) 7.5, Eos % (Auto) 2.4, Baso % (Auto) 0.5, Neut # (Auto) 3.7, Lymph # (Auto) 2.6, [place] # (Auto) 0.5, Eos # (Auto) 0.2, Baso # (Auto) 0.0 08/24/18 21:45: Sodium 140, Potassium 4.2, Chloride 105, Carbon Dioxide 26, Anion Gap 13.2, BUN 18, Creatinine 1.00, Estimated Creat Clear 93, Estimated GFR 76, Est GFR ( Amer) 92, Glucose 102, Calcium 9.1, Total Bilirubin 0.4, AST 14 L, ALT 28, Alkaline Phosphatase 57, Total Protein 7.4, Albumin 3.6, Globulin 3.8 H, Albumin/Globulin Ratio 0.9 L, Amylase 39, Lipase 136 08/25/18 00:00: Stl Aeromonas (PCR) Not detected, Stl C. cayetanensis PCR Not detected, Stool Rotavirus (PCR) Not detected, Stl Adenov F 40/41 PCR Not detected, Stool Astrovirus (PCR) Not detected, Stool Campylobacter PCR Not detected, Stl C.difficile Tox PCR Not detected, Stool Cryptosporidium PCR Not detected, Stl E.coli Shiga Tox PCR Not detected, Stool E coli O157 PCR Not detected, Stl Enterotoxigenic E PCR Not detected, Stool EPEC (PCR) Not detected, Stool EAEC (PCR) Not detected, Stl E. histolytica PCR Not detected, Stool Giardia Lamblia PCR Not detected, Stool Salmonella PCR Not detected, Stool Sapovirus (PCR) Not detected, Stl P. shigelloides PCR Not detected, Stl Shigella/EIEC PCR Not detected, St Y.enterocolitica PCR Not detected, Stool Vibrio (PCR) Not detected, Stl Vibrio cholerae PCR Not detected, Stl Norovirus GI/GII PCR Not detected 08/25/18 00:00: Troponin I < 0.02 08/25/18 00:23: POC Glucose 97 08/25/18 00:30: WBC 10.1 D, RBC 3.90 L, Hgb 12.7 L D, Hct 37.0 L, MCV 95.0 H, MCH 32.4 H, MCHC 34.2, RDW 12.2, Plt Count 254, MPV 6.8 L, Neut % (Auto) 54.9, Lymph % (Auto) 37.4, [place] % (Auto) 6.0, Eos % (Auto) 1.3, Baso % (Auto) 0.5, Neut # (Auto) 5.5, Lymph # (Auto) 3.8, [place] # (Auto) 0.6, Eos # (Auto) 0.1, Baso # (Auto) 0.1 08/25/18 06:25: WBC 6.4 D, RBC 3.35 L, Hgb 10.7 L D, Hct 31.5 L, MCV 94.2 H, MCH 32.0 H, MCHC 34.0, RDW 12.3, Plt Count 193, MPV 7.4, Neut % (Auto) 67.8, Lymph % (Auto) 26.1, [place] % (Auto) 5.2, Eos % (Auto) 0.5, Baso % (Auto) 0.3, Neut # (Auto) 4.3, Lymph # (Auto) 1.7, [place] # (Auto) 0.3, Eos # (Auto) 0.0, Baso # (Auto) 0.0 08/25/18 06:25: Sodium 141, Potassium 4.2, Chloride 109 H, Carbon Dioxide 24, Anion Gap 12.2, BUN 16, Creatinine 0.74 D, Estimated Creat Clear 93, Estimated GFR 107, Est GFR ( Amer) 130 D, Glucose 110 H, Calcium 7.8 L D I & O for Last 24 hours: Intake & Output 08/23/18 08/24/18 08/25/18 08/26/18 11:59 11:59 11:59 11:59 Intake Total 3000 / 3000 Balance 3000 / 3000 Weight 190 lb - *Routine HEENT Exam Head: Present: normocephalic Eye: Present: EOMI, PERRL ENT: Present: mucous membranes moist - *Routine Neck Exam Present: supple. Absent: lymphadenopathy - *Routine Respiratory Exam Present: CTA bilaterally - *Routine Cardiovascular Exam Present: Normal S1, Normal S2 - *Routine Abdominal Exam Present: soft, normoactive bowel sounds. Absent: tenderness - *Routine Extremities Exam Absent: cyanosis, clubbing, edema - *Routine Skin Exam Present: warm. Absent: rash - *Routine Neurological Exam Present: alert, oriented X3 - Detailed Eye Exam Eyelids: Left normal inspection Results - Labs 08/25/18 06:25 08/25/18 06:25 Laboratory Results - last 24 hr 08/24/18 21:45: Urine Color Yellow, Urine Appearance Clear, Urine pH 6.5, Ur Specific [place] 1.020, Urine Protein Negative, Urine Glucose (UA) Negative, Urine Ketones Negative, Urine Blood Trace-l, Urine Nitrate Negative, Urine Bilirubin Negative, Urine Urobilinogen 0.2, Ur Leukocyte Esterase Negative, Urine WBC Occasional, Ur Squamous Epith Cells Occasional, Urine Bacteria Trace 08/24/18 21:45: Stool Occult Blood Positive A 08/24/18 21:45: WBC 7.0, RBC 4.64, Hgb 14.9, Hct 43.3, MCV 93.4, MCH 32.1 H, MCHC 34.3, RDW 12.1, Plt Count 246, MPV 6.9 L, Neut % (Auto) 52.9, Lymph % (Auto) 36.7, [place] % (Auto) 7.5, Eos % (Auto) 2.4, Baso % (Auto) 0.5, Neut # (Auto) 3.7, Lymph # (Auto) 2.6, [place] # (Auto) 0.5, Eos # (Auto) 0.2, Baso # (Auto) 0.0 08/24/18 21:45: Sodium 140, Potassium 4.2, Chloride 105, Carbon Dioxide 26, Anion Gap 13.2, BUN 18, Creatinine 1.00, Estimated Creat Clear 93, Estimated GFR 76, Est GFR ( Amer) 92, Glucose 102, Calcium 9.1, Total Bilirubin 0.4, AST 14 L, ALT 28, Alkaline Phosphatase 57, Total Protein 7.4, Albumin 3.6, Globulin 3.8 H, Albumin/Globulin Ratio 0.9 L, Amylase 39, Lipase 136 08/25/18 00:00: Stl Aeromonas (PCR) Not detected, Stl C. cayetanensis PCR Not detected, Stool Rotavirus (PCR) Not detected, Stl Adenov F 40/41 PCR Not detected, Stool Astrovirus (PCR) Not detected, Stool Campylobacter PCR Not detected, Stl C.difficile Tox PCR Not detected, Stool Cryptosporidium PCR Not detected, Stl E.coli Shiga Tox PCR Not detected, Stool E coli O157 PCR Not detected, Stl Enterotoxigenic E PCR Not detected, Stool EPEC (PCR) Not detected, Stool EAEC (PCR) Not detected, Stl E. histolytica PCR Not detected, Stool Giardia Lamblia PCR Not detected, Stool Salmonella PCR Not detected, Stool Sapovirus (PCR) Not detected, Stl P. shigelloides PCR Not detected, Stl Shigella/EIEC PCR Not detected, St Y.enterocolitica PCR Not detected, Stool Vibrio (PCR) Not detected, Stl Vibrio cholerae PCR Not detected, Stl Norovirus GI/GII PCR Not detected 08/25/18 00:00: Troponin I < 0.02 08/25/18 00:23: POC Glucose 97 08/25/18 00:30: WBC 10.1 D, RBC 3.90 L, Hgb 12.7 L D, Hct 37.0 L, MCV 95.0 H, MCH 32.4 H, MCHC 34.2, RDW 12.2, Plt Count 254, MPV 6.8 L, Neut % (Auto) 54.9, Lymph % (Auto) 37.4, [place] % (Auto) 6.0, Eos % (Auto) 1.3, Baso % (Auto) 0.5, Neut # (Auto) 5.5, Lymph # (Auto) 3.8, [place] # (Auto) 0.6, Eos # (Auto) 0.1, Baso # (Auto) 0.1 08/25/18 06:25: WBC 6.4 D, RBC 3.35 L, Hgb 10.7 L D, Hct 31.5 L, MCV 94.2 H, MCH 32.0 H, MCHC 34.0, RDW 12.3, Plt Count 193, MPV 7.4, Neut % (Auto) 67.8, Lymph % (Auto) 26.1, [place] % (Auto) 5.2, Eos % (Auto) 0.5, Baso % (Auto) 0.3, Neut # (Auto) 4.3, Lymph # (Auto) 1.7, [place] # (Auto) 0.3, Eos # (Auto) 0.0, Baso # (Auto) 0.0 08/25/18 06:25: Sodium 141, Potassium 4.2, Chloride 109 H, Carbon Dioxide 24, Anion Gap 12.2, BUN 16, Creatinine 0.74 D, Estimated Creat Clear 93, Estimated GFR 107, Est GFR ( Amer) 130 D, Glucose 110 H, Calcium 7.8 L D Assessment and Plan - Assessment and plan all Dx Assessment and Plan for all problems:: Patient has findings consistent with colitis of the proximal transverse colon on CT scan. At this point plan for medical management. Agree with IV fluids and antibiotics. She feels clinically better. His stool diarrhea PCR is negative for infectious etiology however I would continue levofloxacin and metronidazole. No need for surgical intervention or colonoscopy at this time. I explained to the patient the nature of his condition and treatment. Ideally, assuming he continues to improve, would plan for continued outpatient medical management with scheduling of outpatient colonoscopy. I did explain to him that potential etiology for his symptoms could be neoplasm although this seems less likely given the onset of symptoms and findings on CT scan.
--- NOTE | 2018-08-26 06:56 | Progress Note ---
Subjective Patient reports: feels better Narrative: Patient feels better. Had a few "clots" in stool. Denies pain. Exam Vital signs and Labs for Last 24 Hours: Temp Pulse Resp BP Pulse Ox 98.1 F 67 16 98/57 L 96 08/26/18 03:45 08/26/18 03:45 08/26/18 03:45 08/26/18 03:45 08/26/18 03:45 Laboratory Results - last 24 hr 08/25/18 06:25: WBC 6.4 D, RBC 3.35 L, Hgb 10.7 L D, Hct 31.5 L, MCV 94.2 H, MCH 32.0 H, MCHC 34.0, RDW 12.3, Plt Count 193, MPV 7.4, Neut % (Auto) 67.8, Lymph % (Auto) 26.1, [place] % (Auto) 5.2, Eos % (Auto) 0.5, Baso % (Auto) 0.3, Neut # (Auto) 4.3, Lymph # (Auto) 1.7, [place] # (Auto) 0.3, Eos # (Auto) 0.0, Baso # (Auto) 0.0 08/25/18 06:25: Sodium 141, Potassium 4.2, Chloride 109 H, Carbon Dioxide 24, Anion Gap 12.2, BUN 16, Creatinine 0.74 D, Estimated Creat Clear 93, Estimated GFR 107, Est GFR ( Amer) 130 D, Glucose 110 H, Calcium 7.8 L D 08/25/18 12:20: WBC 5.4, RBC 3.39 L, Hgb 10.9 L, Hct 32.0 L, MCV 94.2 H, MCH 32.1 H, MCHC 34.1, RDW 12.3, Plt Count 226, MPV 6.7 L, Neut % (Auto) 62.4, Lymph % (Auto) 30.7, [place] % (Auto) 5.8, Eos % (Auto) 0.9, Baso % (Auto) 0.2, Neut # (Auto) 3.4, Lymph # (Auto) 1.6, [place] # (Auto) 0.3, Eos # (Auto) 0.1, Baso # (Auto) 0.0 I & O for Last 24 hours: Intake & Output 08/23/18 08/24/18 08/25/18 08/26/18 11:59 11:59 11:59 11:59 Intake Total 3000 / 3000 2758 / 2758 Balance 3000 / 3000 2758 / 2758 Weight 190 lb 188 lb 1 oz - *Routine Abdominal Exam Present: soft. Absent: tenderness Progress Note: A&P Assessment and Plan for All Diagnoses:: Lower GI bleeding with abnormal CT scan. Continue to treat for colitis. Check blood counts today. Will need colonoscopy soon which may be done as early outpatient.
[2018-08-26 07:14] LABS: Basophils % 0.5 % (0.1-2.0); Eosinophils # 0.1 K/mm3 (0.0-0.4); Eosinophils % 2.6 % (0.1-12.0); Hematocrit 28.9 % (42.0-52.0); Hemoglobin 10.1 g/dL (14.1-18.0); Lymphocytes # 1.9 K/mm3 (0.7-4.5); Lymphocytes % 41.2 % (10-50); Mean Corpuscular HGB Conc 34.8 g/dL (31.8-35.4); Mean Corpuscular Hemoglobin 32.9 pg (27.0-31.2); Mean Corpuscular Volume 94.4 fl (80-94); Mean Platelet Volume 7.2 fl (7.4-10.4); Monocytes # 0.3 K/mm3 (0.1-1.0); Monocytes % 5.8 % (1.7-9.3); Neutrophils # 2.2 K/mm3 (1.8-7.8); Neutrophils % 49.9 % (37.0-80.0); Platelet Count 193 K/mm3 (142-424); Red Blood Count 3.07 M/mm3 (4.60-6.20); Red Cell Distribution Width 12.4 % (11.5-17.5); White Blood Count 4.5 K/mm3 (4.8-10.8)
--- NOTE | 2018-08-26 08:11 | Progress Note ---
<Evelyn Lazo - Last Filed: 08/26/18 08:08> Internal Medicine - PN: Subj *Date: 08/26/18 *Time: 08:08 Interval history: Patient states he is feeling better today. He is tolerating his diet. He denies any abdominal pain. He slept well last night. Still passing some clots in his stool. Exam Vital signs and Labs for Last 24 Hours: Temp Pulse Resp BP Pulse Ox 98.5 F 94 H 18 125/51 L 96 08/26/18 07:51 08/26/18 07:51 08/26/18 07:51 08/26/18 07:51 08/26/18 07:51 Laboratory Results - last 24 hr 08/25/18 12:20: WBC 5.4, RBC 3.39 L, Hgb 10.9 L, Hct 32.0 L, MCV 94.2 H, MCH 32.1 H, MCHC 34.1, RDW 12.3, Plt Count 226, MPV 6.7 L, Neut % (Auto) 62.4, Lymph % (Auto) 30.7, [place] % (Auto) 5.8, Eos % (Auto) 0.9, Baso % (Auto) 0.2, Neut # (Auto) 3.4, Lymph # (Auto) 1.6, [place] # (Auto) 0.3, Eos # (Auto) 0.1, Baso # (Auto) 0.0 08/26/18 06:50: WBC 4.5 L, RBC 3.07 L, Hgb 10.1 L, Hct 28.9 L, MCV 94.4 H, MCH 32.9 H, MCHC 34.8, RDW 12.4, Plt Count 193, MPV 7.2 L, Neut % (Auto) 49.9, Lymph % (Auto) 41.2, [place] % (Auto) 5.8, Eos % (Auto) 2.6, Baso % (Auto) 0.5, Neut # (Auto) 2.2, Lymph # (Auto) 1.9, [place] # (Auto) 0.3, Eos # (Auto) 0.1, Baso # (Auto) 0.0 I & O for Last 24 hours: Intake & Output 08/23/18 08/24/18 08/25/18 08/26/18 11:59 11:59 11:59 11:59 Intake Total 3000 / 3000 2758 / 2758 Balance 3000 / 3000 2758 / 2758 Weight 190 lb 188 lb 1 oz - Constitutional no acute distress - *Routine Respiratory Exam Present: CTA bilaterally - *Routine Cardiovascular Exam Present: RRR - *Routine Abdominal Exam Present: soft, normoactive bowel sounds. Absent: tenderness - *Routine Extremities Exam Absent: cyanosis, clubbing, edema Assessment and Plan (1) Colitis Current visit: Yes Status: Acute Category: Medical Code(s): K52.9 - Noninfective gastroenteritis and colitis, unspecified (2) Vasovagal episode Current visit: Yes Status: Acute Category: Medical Code(s): R55 - Syncope and collapse (3) History of atrial fibrillation Current visit: Yes Status: Chronic Category: Medical Code(s): Z86.79 - Personal history of other diseases of the circulatory system (4) History of TIA (transient ischemic attack) Current visit: No Status: Chronic Category: Medical Code(s): Z86.73 - Personal history of transient ischemic attack (TIA), and cerebral infarction without residual deficits (5) Family history of coronary artery disease Current visit: No Status: Chronic Category: Medical Code(s): Z82.49 - Family history of ischemic heart disease and other diseases of the circulatory system (6) Diverticulosis Current visit: Yes Status: Chronic Category: Medical Code(s): K57.90 - Diverticulosis of intestine, part unspecified, without perforation or abscess without bleeding - Assessment and plan all Dx Assessment and Plan for all problems:: Patient's H&H is slightly lower today. His blood pressures are still low. He is tolerating a diet and having less blood in his stool. May be able to discharge today. Will discuss with Dr. العراقي. Will need a c-scope outpatient. <Nadir العراقي - Last Filed: 08/26/18 08:34> Exam Vital signs and Labs for Last 24 Hours: Temp Pulse Resp BP Pulse Ox 98.5 F 94 H 18 125/51 L 96 08/26/18 07:51 08/26/18 07:51 08/26/18 07:51 08/26/18 07:51 08/26/18 07:51 Laboratory Results - last 24 hr 08/25/18 12:20: WBC 5.4, RBC 3.39 L, Hgb 10.9 L, Hct 32.0 L, MCV 94.2 H, MCH 32.1 H, MCHC 34.1, RDW 12.3, Plt Count 226, MPV 6.7 L, Neut % (Auto) 62.4, Lymph % (Auto) 30.7, [place] % (Auto) 5.8, Eos % (Auto) 0.9, Baso % (Auto) 0.2, Neut # (Auto) 3.4, Lymph # (Auto) 1.6, [place] # (Auto) 0.3, Eos # (Auto) 0.1, Baso # (Auto) 0.0 08/26/18 06:50: WBC 4.5 L, RBC 3.07 L, Hgb 10.1 L, Hct 28.9 L, MCV 94.4 H, MCH 32.9 H, MCHC 34.8, RDW 12.4, Plt Count 193, MPV 7.2 L, Neut % (Auto) 49.9, Lymph % (Auto) 41.2, [place] % (Auto) 5.8, Eos % (Auto) 2.6, Baso % (Auto) 0.5, Neut # (Auto) 2.2, Lymph # (Auto) 1.9, [place] # (Auto) 0.3, Eos # (Auto) 0.1, Baso # (Auto) 0.0 I & O for Last 24 hours: Intake & Output 08/23/18 08/24/18 08/25/18 08/26/18 11:59 11:59 11:59 11:59 Intake Total 3000 / 3000 2758 / 2758 Balance 3000 / 3000 2758 / 2758 Weight 190 lb 188 lb 1 oz Assessment and Plan (1) Colitis Current visit: Yes Status: Acute Category: Medical Code(s): K52.9 - Noninfective gastroenteritis and colitis, unspecified (2) Vasovagal episode Current visit: Yes Status: Acute Category: Medical Code(s): R55 - Syncope and collapse (3) History of atrial fibrillation Current visit: Yes Status: Chronic Category: Medical Code(s): Z86.79 - Personal history of other diseases of the circulatory system (4) History of TIA (transient ischemic attack) Current visit: No Status: Chronic Category: Medical Code(s): Z86.73 - Personal history of transient ischemic attack (TIA), and cerebral infarction without residual deficits (5) Family history of coronary artery disease Current visit: No Status: Chronic Category: Medical Code(s): Z82.49 - Family history of ischemic heart disease and other diseases of the circulatory system (6) Diverticulosis Current visit: Yes Status: Chronic Category: Medical Code(s): K57.90 - Diverticulosis of intestine, part unspecified, without perforation or abscess without bleeding - Assessment and plan all Dx Assessment and Plan for all problems:: Patient seen and examined. He had no stools during the night and denies abdominal pain. His last stool yesterday had a few "old clots". He is tolerating his diet. H&H is stabilizing. Will discharge home on antibiotics and f/u with Dr. Meyers for outpt colonoscopy.
--- NOTE | 2018-08-27 09:16 | Discharge Summary ---
General - General Admission date:: 08/25/18 Discharge date: 08/26/18 HPI HPI: Mr. Munoz is a 63yo WM with history of Afib treated with Xarelto. He reports he had been feeling fine until yesterday when he had a large, loose bloody BM at home and presented to the ED for further evaluation. Upon arrival, his labs were fairly unremarkable. His abdominal CT scan showed inflammatory/infectious changes as well as diverticulosis without diverticulitis and recommended colonoscopy for further evaluation. The initial plan was for discharge home from the ED and for him to followup with PCP as an outpatient, however, after an acute vasovagal episode with decreased bp and pulse as well as some brief mental status changes while in the ED, he was admitted for observation and further evaluation. This morning he does not feel much better. He has continued with multiple loose, bloody BM's overnight. He denies any pain or lightheadedness and notes only that he feels "very tired." His hemoglobin continues to trend down. Hospital Course Hospital Course: The patient's abdominal CT showed thickening of the colon from the hepatic flexure to the mid transverse colon. Radiology felt this could be related to inflammatory or infectious change such as colitis or even neoplasm. They recommended colonoscopy. The patient was started on Levaquin and surgery was consulted. His stool for blood was positive and his diarrhea panel was negative. His hemoglobin did trend down throughout his stay. He was seen in consultation by Dr. Meyers who felt the findings were consistent with colitis. He recommended medical management with IV fluids and antibiotics. He did recommend a colonoscopy on an outpatient basis once infection had resolved. The patient did begin feeling better and was able to tolerate a diet. His abdominal pain improved and he began resting well. His stools decreased. His H&H was stabilizing and he was stable to be discharged home on antibiotics. He will follow-up with Dr. Meyers for outpatient colonoscopy. Objective Vital signs: Temp Pulse Resp BP Pulse Ox 98.5 F 94 H 18 125/51 L 96 08/26/18 07:51 08/26/18 07:51 08/26/18 07:51 08/26/18 07:51 08/26/18 07:51 Narrative: - Constitutional no acute distress - *Routine HEENT Exam Head: Present: normocephalic, atraumatic Eye: Present: PERRL, normal accommodation ENT: Present: mucous membranes moist - *Routine Neck Exam Present: supple, full ROM. Absent: lymphadenopathy, thyromegaly, tenderness - *Routine Respiratory Exam Present: CTA bilaterally - *Routine Cardiovascular Exam Present: RRR - *Routine Abdominal Exam Present: soft, normoactive bowel sounds. Absent: tenderness, distended, rebound, guarding, rigid, organomegaly, mass - *Routine Extremities Exam Present: full ROM, pulses intact. Absent: edema, calf tenderness - *Routine Neurological Exam Present: alert, oriented X3, moving all extremities, normal speech DS: Diagnosis - Discharge Diagnosis (1) Colitis Status: Acute (2) Vasovagal episode Status: Acute (3) History of atrial fibrillation Status: Chronic (4) History of TIA (transient ischemic attack) Status: Chronic (5) Family history of coronary artery disease Status: Chronic (6) Diverticulosis Status: Chronic Discharge Plan - Patient Discharge Instructions ACTIVITY: Continue current activity DIET: advance to your usual diet Additional Instructions: Resume Xarelto on Friday. Patient Instructions: DI for Colitis - Follow up Plan Follow up with: Eleazar Meyers MD [Staff Physician] - 08/31/18 Nadir العراقي MD [Primary Care Provider] - 09/04/18 Disposition: Home, Self-Snf Medications: Home Medications Medication Instructions Recorded Confirmed Type Bisoprolol Fumarate [Bisoprolol 5 mg PO BID 08/24/18 08/24/18 History 5mg Tablet] levoFLOXacin [Levaquin 500mg 500 mg PO DAILY #7 tab 08/26/18 Rx tab] Prescriptions/Medication Reconciliation: New levoFLOXacin [Levaquin 500mg tab] 500 mg PO DAILY #7 tab Continue Bisoprolol Fumarate [Bisoprolol 5mg Tablet] 5 mg PO BID Discontinued Rivaroxaban [Xarelto 20mg Tablet] 20 mg PO DAILY Magnesium Oxide/Magnesium [Magnesium 300 mg Capsule] 300 mg PO DAILY
== END 2018-08-26 10:40 | disposition home or self-care (01) ==
LOC: 2ND 21:25 → ER 21:25 → 2ND 08-25 04:44
PROVIDERS: ADMIT Family Medicine; ATTEND Family Medicine
CPT/HCPCS: 36415; 74177; 80048; 80053; 81001; 82150; 82272; 82962; 83690; 84484; 85025; 87506; 93005; 96365; 96366; 99285; G0328; G0378; J1956; Q9967

== ENCOUNTER → 2018-09-01 11:20 | Outpatient (CLI) | payer OTHER, SELFPAY ==
[2018-09-01 11:54] LABS: Basophils % 0.3 % (0.1-2.0); Eosinophils # 0.1 K/mm3 (0.0-0.4); Eosinophils % 1.5 % (0.1-12.0); Hematocrit 34.8 % (42.0-52.0); Hemoglobin 11.6 g/dL (14.1-18.0); Lymphocytes # 1.8 K/mm3 (0.7-4.5); Lymphocytes % 34.9 % (10-50); Mean Corpuscular HGB Conc 33.2 g/dL (31.8-35.4); Mean Corpuscular Hemoglobin 32.2 pg (27.0-31.2); Mean Platelet Volume 6.6 fl (7.4-10.4); Monocytes # 0.4 K/mm3 (0.1-1.0); Neutrophils # 2.8 K/mm3 (1.8-7.8); Neutrophils % 56.3 % (37.0-80.0); Platelet Count 295 K/mm3 (142-424); Red Blood Count 3.59 M/mm3 (4.60-6.20); Red Cell Distribution Width 13.9 % (11.5-17.5)
== END ==
PROVIDERS: Visit Provider Surgery
DX: K92.2 Gastrointestinal hemorrhage, unspecified (principal)
CPT/HCPCS: 36415; 85025

== ENCOUNTER 2020-08-04 13:26 | Observation (INO) | payer OTHER, SELFPAY ==
--- NOTE | 2020-08-04 13:33 | XR_ITS ---
PROCEDURE: XR ACUTE ABDOMEN SERIES CLINICAL INDICATION: Epigastric abd pain COMPARISON: No exams were available for comparison FINDINGS: Frontal view the chest shows no acute finding. Upright and supine views of the abdomen demonstrates a nonspecific nonobstructive bowel gas pattern. There are flecks of hyperdensity present in the right colon area and may be related to ingested medication. Nondistended gas-filled loops of small and large bowel are present. No evidence of obstruction or free air. There are degenerative changes in the lumbar spine. IMPRESSION: Nonspecific bowel gas pattern with nondistended gas-filled loops of small and large bowel which could be seen with ileus or enteritis. Dictated by: Shane García MD 08/04/2020 14:59 Shane García MD in [place] 08/04/2020 14:59
[2020-08-04 13:50] VITALS: BP 132/74; PULSE 63; RESP 17; TEMP 36.9; O2SAT 100; BMI 25.6
--- NOTE | 2020-08-04 14:20 | ECG_ITS ---
APPROVED REPORT Exam: Resting ECG HR:69 bpm ECG Measurements Heart Rate 69 AXES DE 178 P 67 QRSd 82 QRS 55 QT 368 T 55 QTc 394 Conclusion Normal sinus rhythm Possible Left atrial enlargement Borderline ECG Electronically signed by : Mainor Laboy, 08/05/2020 07:24:59
[2020-08-04 14:28] LABS: Basophils % 0.3 % (0.1-2.0); Eosinophils # 0.1 K/mm3 (0.0-0.4); Eosinophils % 0.9 % (0.1-12.0); Hematocrit 47.8 % (42.0-52.0); Hemoglobin 16.4 g/dL (14.1-18.0); Lymphocytes # 1.3 K/mm3 (0.7-4.5); Lymphocytes % 14.6 % (10-50); Mean Corpuscular HGB Conc 34.3 g/dL (31.8-35.4); Mean Corpuscular Hemoglobin 32.8 pg (27.0-31.2); Mean Corpuscular Volume 95.4 fl (80-94); Mean Platelet Volume 6.8 fl (7.4-10.4); Monocytes # 0.6 K/mm3 (0.1-1.0); Monocytes % 6.6 % (1.7-9.3); Neutrophils # 7.1 K/mm3 (1.8-7.8); Neutrophils % 77.6 % (37.0-80.0); Platelet Count 207 K/mm3 (142-424); Red Cell Distribution Width 12.4 % (11.5-17.5); White Blood Count 9.1 K/mm3 (4.8-10.8)
[2020-08-04 14:34] LABS: Chloride 105 mmol/L (98-107); Potassium 3.9 mmoL/L (3.5-5.1); Sodium 138 mmol/L (136-145)
--- NOTE | 2020-08-04 14:34 | P.CONPHA_ITS ---
[facility] Pharmacy VTE Monitoring - Patient Demographics Admission date: 08/04/20 Report Date: 08/04/20 Time: 14:34 Allergies/Adverse Reactions: Patient Allergies Penicillins Allergy (Verified 09/25/18 14:24) Hives Height: 1.83 m Weight: 85.786 kg - VTE Risk Labs: VTE Related Lab Results Hgb 16.4 g/dL (14.1-18.0) 08/04/20 14:09 Hct 47.8 % (42.0-52.0) 08/04/20 14:09 Plt Count 207 K/mm3 (142-424) 08/04/20 14:09 VTE Score: 1 - Prophylaxis VTE Prophylaxis Ordered?: Yes Types of VTE Prophylaxis: TEDS Knee High Location of Applied Device: Bilateral Lower Extremeties
--- NOTE | 2020-08-04 14:34 | HMH.PHAINT ---
MEDICATION RECONCILIATION COMPLETED ON PATIENT USING EXTERNAL FILL HISTORY FROM PHARMACY. -PRATIK SALGADO, EARLENED
[2020-08-04 14:36] LABS: Amylase 61 U/L (30-110); Blood Urea Nitrogen 16 mg/dl (9-20); Creatinine Clearance Estimated 91 mL/min (50-200); Estimated Glomerular Filt Rate 97 ml/min (>60); GFR (African American) 118 ML/MIN (>60)
[2020-08-04 14:37] LABS: Alanine Aminotransferase 39 U/L (12-78); Albumin Level 4.4 g/dl (3.5-5.0); Albumin/Globulin Ratio 1.3 (1.1-1.8); Alkaline Phosphatase 71 U/L (38-126); Anion Gap 10.9 mEq/L (5-15); Aspartate Amino Transferase 63 U/L (17-59); Bilirubin,Total 1.2 mg/dl (0.2-1.3); Calcium 9.9 mg/dl (8.4-10.2); Carbon Dioxide 26 mmol/L (22.0-30.0); Globulin 3.5 g/dL (1.3-3.2); Glucose 113 mg/dl (74-100); Lipase 79 U/L (23-300); Total Protein,Serum 7.9 g/dl (6.3-8.2)
[2020-08-04 14:38] LABS: Lactic Acid 1.1 mmol/L (0.7-2.1)
[2020-08-04 14:51] LABS: Troponin I < 0.01 ng/ml (0.00-0.034)
--- NOTE | 2020-08-04 16:12 | PC.NURSE ---
Called lab. COVID PCR has 116 minutes to result
--- NOTE | 2020-08-04 16:49 | HMH.HP ---
*Admission Date: 08/04/20 <Evelyn Lazo 08/04/20 16:55> *Chief complaint: epigastric pain <Evelyn Lazo 08/04/20 16:55> *History of present illness: Mr. Munoz is a 65-year-old male who presented to the office of [facility] today complaining of severe epigastric abdominal pain. He states the pain started just a few hours prior to his visit. He thought at first he was having heartburn or reflux and he took some medication, but this only made it worse. He then drank some Sprite and this seemed to ease it slightly. Evaluation in the office revealed significant pain. The patient denies any hematemesis or melena. He denies any nausea or vomiting and states his bowels have been normal. He was admitted for further evaluation and treatment. <Evelyn Lazo 08/04/20 16:55> [facility] History I have reviewed the patient's past medical history: Yes <Evelyn Lazo 08/04/20 16:55> Medical History: Reports:: Atrial Fibrillation, Hyperlipidemia, Hypertension, Seizures, Transient Ischemic Attacks (TIA) Denies:: Cancer, Diabetes Mellitus Type 1, Diabetes Mellitus Type 2, Lung Disease, MRSA <Evelyn Lazo 08/04/20 16:55> *Have you ever received a pneumonia vaccine?: No <Evelyn Lazo 08/04/20 16:55> *Have you received a flu vaccine this season?: Yes <Evelyn Lazo 08/04/20 16:55> Other Medical History: Reports: Other <Evelyn Lazo 08/04/20 16:55> Laterality Cases: Bilateral: Arthroscopy Knee <Evelyn Lzao 08/04/20 16:55> Other Surgeries: Yes: Colonoscopy, Hernia Repair <Evelyn Lazo 08/04/20 16:55> Amputation: No <Evelyn Lazo 08/04/20 16:55> Fractures: No <Evelyn Lazo 08/04/20 16:55> - *Social History Last grade of school completed: Some college <Evelyn Lazo 08/04/20 16:55> Smoking Status: Former smoker <Evelyn Lazo 08/04/20 16:55> Alcohol Intake: never <Evelyn Lazo 08/04/20 16:55> Alcohol Intake Frequency:: holidays/special occasions only <Evelyn Lazo 08/04/20 16:55> Substance Use Type: denies use <Evelyn Lazo 08/04/20 16:55> *Occupational Status:: employed <Evelyn Lazo 08/04/20 16:55> Housing: house <Evelyn Lazo 08/04/20 16:55> Household Members: spouse <Evelyn Lazo 08/04/20 16:55> *Travel in the last 8 weeks: None <Evelyn Lazo 08/04/20 16:55> Family Hx:: Cancer, Coronary Artery Disease <Evelyn Lazo 08/04/20 16:55> Review of Systems - Constitutional Denies fever(s), Denies weakness <Evelyn Lazo 08/04/20 16:55> - Eyes Denies blurry vision, Denies double vision <Evelyn Lazo 08/04/20 16:55> - ENT Denies nasal congestion, Denies sore throat <Evelyn Lazo 08/04/20 16:55> - *Cardiovascular Denies chest pain, Denies shortness of breath <Evelyn Lazo 08/04/20 16:55> - *Respiratory Denies cough, Denies shortness of breath <Evelyn Lazo 08/04/20 16:55> - *Gastrointestinal Reports abdominal pain, Denies loose stools, Denies vomiting blood, Denies black, tarry stools, Denies nausea, Denies vomiting <Evelyn Lazo 08/04/20 16:55> - *Genitourinary Denies difficulty urinating, Denies painful urination <Evelyn Lazo 08/04/20 16:55> - *Musculoskeletal Denies joint pain <Evelyn Lazo 08/04/20 16:55> - *Neurologic Denies headache(s), Denies dizziness, Denies weakness <Evelyn Lazo 08/04/20 16:55> Meds Home Medications Medication Instructions Recorded Confirmed Type Rivaroxaban [Xarelto 20mg Tablet*] 20 mg PO QPMWM 08/04/20 08/04/20 History Triamcinolone Acetonide [Nasacort] 2 sprays NS DAILYP PRN 08/04/20 08/04/20 History <Mahendra Flor - 08/04/20 18:11> Allergies Allergy/AdvReac Type Severity Reaction Status Date / Time Penicillins Allergy Hives Verified 09/25/18 14:24 <Mahendra Flor - 08/04/20 18:11> Exam Vital signs and Labs for Last 24 Hours: Temp Pulse Resp BP Pulse Ox 98.5 F 80 17 132/74 100 08/04/20 13:50 08/04/20 17:25 08/04/20 13:50 08/04/20
[2020-08-04 17:22] LABS: Troponin I < 0.01 ng/ml (0.00-0.034)
[2020-08-04 17:25] VITALS: PULSE 80
[2020-08-04 20:00] VITALS: BP 140/78; PULSE 73; PULSE 80; RESP 17; TEMP 36.8; O2SAT 95
[2020-08-04 21:09] LABS: Troponin I < 0.01 ng/ml (0.00-0.034)
[2020-08-05] VITALS: BP 115/68; PULSE 64; PULSE 70; RESP 17; TEMP 37; O2SAT 96
[2020-08-05 04:00] VITALS: BP 127/64; PULSE 70; PULSE 74; RESP 16; TEMP 36.6; O2SAT 98
[2020-08-05 05:03] VITALS: BMI 25.2
--- NOTE | 2020-08-05 05:13 | PC.NURSE ---
pt AxOx4, has rested well t/o shift, no complaints of abdominal pain, N/V/D, has remained afebrile, lungs CTA, abdomen soft and tender with active bowel sounds noted, has not required any PRN pain medication this shift
--- NOTE | 2020-08-05 05:36 | PC.NURSE ---
pt did tolerate a snack of crackers and peanut butter with no complaints
[2020-08-05 06:59] LABS: Basophils % 0.7 % (0.1-2.0); Eosinophils # 0.2 K/mm3 (0.0-0.4); Eosinophils % 3.7 % (0.1-12.0); Hematocrit 46.9 % (42.0-52.0); Hemoglobin 15.7 g/dL (14.1-18.0); Lymphocytes # 1.6 K/mm3 (0.7-4.5); Lymphocytes % 32.6 % (10-50); Mean Corpuscular HGB Conc 33.6 g/dL (31.8-35.4); Mean Corpuscular Hemoglobin 32.4 pg (27.0-31.2); Mean Corpuscular Volume 96.4 fl (80-94); Mean Platelet Volume 6.7 fl (7.4-10.4); Monocytes # 0.4 K/mm3 (0.1-1.0); Monocytes % 8.2 % (1.7-9.3); Neutrophils # 2.7 K/mm3 (1.8-7.8); Neutrophils % 54.8 % (37.0-80.0); Platelet Count 195 K/mm3 (142-424); Red Blood Count 4.86 M/mm3 (4.60-6.20); Red Cell Distribution Width 12.8 % (11.5-17.5); White Blood Count 4.9 K/mm3 (4.8-10.8)
[2020-08-05 07:05] LABS: Alanine Aminotransferase 31 U/L (12-78); Albumin/Globulin Ratio 1.3 (1.1-1.8); Alkaline Phosphatase 57 U/L (38-126); Anion Gap 7.3 mEq/L (5-15); Aspartate Amino Transferase 33 U/L (17-59); Bilirubin,Total 0.8 mg/dl (0.2-1.3); Blood Urea Nitrogen 12 mg/dl (9-20); Calcium 9.3 mg/dl (8.4-10.2); Carbon Dioxide 29 mmol/L (22.0-30.0); Chloride 105 mmol/L (98-107); Creatinine Clearance Estimated 89 mL/min (50-200); Estimated Glomerular Filt Rate 97 ml/min (>60); GFR (African American) 118 ML/MIN (>60); Globulin 3.1 g/dL (1.3-3.2); Glucose 111 mg/dl (74-100); Potassium 4.3 mmoL/L (3.5-5.1); Sodium 137 mmol/L (136-145); Total Protein,Serum 7.1 g/dl (6.3-8.2)
[2020-08-05 07:46] VITALS: BP 159/91; PULSE 83; RESP 18; TEMP 36.8; O2SAT 94
[2020-08-05 08:00] VITALS: PULSE 82; O2SAT 94
--- NOTE | 2020-08-05 08:50 | HMH.ACPN2 ---
Internal Medicine - PN: Subj *Date: 08/05/20 *Time: 08:50 Interval history: Patient's pain resolved yesterday afternoon and he has had no more pain. He is tolerating a regular diet and is anxious to go home. Exam Vital signs and Labs for Last 24 Hours: Temp Pulse Resp BP Pulse Ox 98.2 F 83 18 159/91 H 94 L 08/05/20 07:46 08/05/20 07:46 08/05/20 07:46 08/05/20 07:46 08/05/20 07:46 Laboratory Results - last 24 hr 08/04/20 14:09: WBC 9.1, RBC 5.00, Hgb 16.4, Hct 47.8, MCV 95.4 H, MCH 32.8 H, MCHC 34.3, RDW 12.4, Plt Count 207, MPV 6.8 L, Neut % (Auto) 77.6, Lymph % (Auto) 14.6, [place] % (Auto) 6.6, Eos % (Auto) 0.9, Baso % (Auto) 0.3, Neut # (Auto) 7.1, Lymph # (Auto) 1.3, [place] # (Auto) 0.6, Eos # (Auto) 0.1, Baso # (Auto) 0.0 08/04/20 14:09: Sodium 138, Potassium 3.9, Chloride 105, Carbon Dioxide 26, Anion Gap 10.9, BUN 16, Creatinine 0.80, Estimated Creat Clear 91, Estimated GFR 97, Est GFR ( Amer) 118, Glucose 113 H, Calcium 9.9, Total Bilirubin 1.2, AST 63 H, ALT 39, Alkaline Phosphatase 71, Total Protein 7.9, Albumin 4.4, Globulin 3.5 H, Albumin/Globulin Ratio 1.3, Amylase 61, Lipase 79 08/04/20 14:09: Troponin I < 0.01 08/04/20 14:09: Lactate 1.1 08/04/20 16:50: Troponin I < 0.01 08/04/20 19:45: Troponin I < 0.01 08/05/20 06:14: WBC 4.9 D, RBC 4.86, Hgb 15.7, Hct 46.9, MCV 96.4 H, MCH 32.4 H, MCHC 33.6, RDW 12.8, Plt Count 195, MPV 6.7 L, Neut % (Auto) 54.8, Lymph % (Auto) 32.6, [place] % (Auto) 8.2, Eos % (Auto) 3.7, Baso % (Auto) 0.7, Neut # (Auto) 2.7, Lymph # (Auto) 1.6, [place] # (Auto) 0.4, Eos # (Auto) 0.2, Baso # (Auto) 0.0 08/05/20 06:14: Sodium 137, Potassium 4.3, Chloride 105, Carbon Dioxide 29, Anion Gap 7.3, BUN 12, Creatinine 0.80, Estimated Creat Clear 89, Estimated GFR 97, Est GFR ( Amer) 118, Glucose 111 H, Calcium 9.3, Total Bilirubin 0.8, AST 33 D, ALT 31, Alkaline Phosphatase 57, Total Protein 7.1, Albumin 4.0, Globulin 3.1, Albumin/Globulin Ratio 1.3 Vital Signs - 24 hr 08/04/20 13:50 08/04/20 17:25 08/04/20 20:00 Temperature 98.5 F 98.3 F Pulse Rate 80 80 Pulse Rate [Left Radial] Pulse Rate [Right] 63 73 Respiratory Rate 17 17 Blood Pressure [Right Arm] 132/74 140/78 02 Sat by Pulse Oximetry 100 95 08/05/20 00:00 08/05/20 04:00 08/05/20 07:46 Temperature 98.6 F 98 F 98.2 F Pulse Rate 70 70 Pulse Rate [Left Radial] 64 74 83 Pulse Rate [Right] Respiratory Rate 17 16 18 Blood Pressure [Right Arm] 115/68 127/64 159/91 H 02 Sat by Pulse Oximetry 96 98 94 L I & O for Last 24 hours: Intake & Output 08/02/20 08/03/20 08/04/20 08/05/20 23:59 23:59 23:59 23:59 Intake Total 120 / 240 720 / 720 Balance 120 / 240 720 / 720 Weight 189 lb 2 oz 186 lb Microbiology Reports for the Last 24 Hours: Microbiology 08/04/20 13:55 Nasopharyngeal Coronavirus COVID-19 PCR - Final - Constitutional no acute distress - *Routine HEENT Exam Head: Present: normocephalic Eye: Present: EOMI ENT: Present: mucous membranes moist - *Routine Neck Exam Present: supple. Absent: lymphadenopathy - *Routine Respiratory Exam Present: CTA bilaterally - *Routine Cardiovascular Exam Present: RRR - *Routine Abdominal Exam Present: soft, normoactive bowel sounds. Absent: tenderness - *Routine Extremities Exam Absent: cyanosis, clubbing, edema - *Routine Skin Exam Present: warm. Absent: rash - *Routine Neurological Exam Present: alert, oriented X3 Assessment and Plan (1) Epigastric pain Status: Acute Category: Medical Code(s): R10.13 - Epigastric pain (2) Diverticulosis Status: Chronic Category: Medical Code(s): K57.90 - Diverticulosis of intestine, part unspecified, without perforation or abscess without bleeding (3) History of TIA (transient ischemic attack) Status: Chronic Category: Medical Code(s): Z86.73 - Personal history of transient ischemic attack (TIA), and cerebral infarction without residual deficits (4) Histo
--- NOTE | 2020-08-07 08:08 | HMH.DCSUM ---
General - General Admission date:: 08/04/20 Discharge date: 08/05/20 HPI HPI: Mr. Munoz was a 65-year-old male who presented to the office of [facility] complaining of severe epigastric abdominal pain. He stated the pain had started just a few hours prior to his visit. He thought at first he was having heartburn or reflux and he took some medication which only made it worse. He then drank some Sprite and his discomfort seemed to ease slightly. Evaluation in the office revealed significant pain. The patient denied any hematemesis or melena. He denied any nausea or vomiting and stated his bowels had been normal. He was admitted for further evaluation and treatment. Hospital Course Hospital Course: Upon admission, his labs were relatively unremarkable. His abdominal x-ray showed ileus versus enteritis. He was started on antiemetics and pain medication. By the following morning, his symptoms had resolved. He was eager to go home and felt stable for discharge with followup in the office in two weeks. Objective Vital signs: Temp Pulse Resp BP Pulse Ox 98.2 F 82 18 159/91 H 94 L 08/05/20 07:46 08/05/20 08:00 08/05/20 07:46 08/05/20 07:46 08/05/20 08:00 DS: Diagnosis - Discharge Diagnosis (1) Epigastric pain Status: Acute (2) Diverticulosis Status: Chronic (3) History of TIA (transient ischemic attack) Status: Chronic (4) History of atrial fibrillation Status: Chronic Discharge Plan - Patient Discharge Instructions ACTIVITY: Continue current activity DIET: continue same diet Patient Instructions: DI for Epigastric Pain - Follow up Plan Follow up with: Mahendra Flor MD [Primary Care Provider] - 08/18/20 10:15 am Disposition: Home, Self-Custodial Medications: Home Medications Medication Instructions Recorded Confirmed Type Rivaroxaban [Xarelto 20mg Tablet*] 20 mg PO QPMWM 08/04/20 08/04/20 History Triamcinolone Acetonide [Nasacort] 2 sprays NS DAILYP PRN 08/04/20 08/04/20 History Prescriptions/Medication Reconciliation: Continued Triamcinolone Acetonide [Nasacort] 2 sprays NS DAILYP PRN PRN Reason: ALLERGY SYMPTOMS Rivaroxaban [Xarelto 20mg Tablet*] 20 mg PO QPMWM - Problem Reconciliation Problems Reviewed?: Yes
== END 2020-08-05 10:05 | disposition home or self-care (01) ==
PROVIDERS: Admitting Provider Family Medicine; PCP Family Medicine; Visit Provider Family Medicine
DX: R10.13 Epigastric pain (principal); K57.80 Diverticulitis of intestine, part unspecified, with perforation and abscess without bleeding; I48.91 Unspecified atrial fibrillation; I10 Essential (primary) hypertension; Z87.891 Personal history of nicotine dependence; Z86.73 Personal history of transient ischemic attack (TIA), and cerebral infarction without residual deficits; Z79.01 Long term (current) use of anticoagulants; Z79.899 Other long term (current) drug therapy
CPT/HCPCS: 36415; 74021; 80053; 82150; 83605; 83690; 84484; 85025; 93005; G0378; U0003

== ENCOUNTER 2020-10-17 06:47 | Observation (INO) | payer OTHER, SELFPAY ==
[2020-10-17] VITALS (26 sets, daily range): BP systolic 94–134; BP diastolic 56–90; PULSE 60–124; RESP 13–20; TEMP 36.5–37; O2SAT 92–99; BMI 25.7; BMI 24.8
--- NOTE | 2020-10-17 | IR_ITS ---
APPROVED REPORT Patient Location: Inpatient PROCEDURES Left heart catheterization Left ventriculogram Selective coronary angiogram INDICATION New onset cardiomyopathy ejection fraction 35%, New onset atrial fibrillation Informed consent was obtained prior to the procedure. COMPLICATIONS NONE Estimated Blood Loss: LESS THAN 10 ML TECHNIQUE One percent lidocaine used to anesthetize the right anterior aspect of the wrist. The right radial artery was accessed via the Seldinger technique. A 6 [place] sheath was placed in the right radial artery. 2.5 mg of verapamil, 800 mcg of nitroglycerin, 1mg Lidocaine and 5000 U Heparin were given through the arterial sheath. The trap catheter was also used to perform left heart catheterization, left ventriculogram and selective coronary angiogram. At the end of the procedure the sheath was removed good hemostasis was achieved using Traclet band, patient was transferred to the postop holding area in stable condition. ANGIOGRAPHIC RESULTS The left main artery Normal The left anterior descending artery Normal The circumflex artery Nondominant has proximal mid vessel 10 to 20% luminal irregularities The right coronary artery Large dominant normal The PUENTES ventriculogram reveals Reduced at 45% The left ventricular end-diastolic pressure 15 mmHg IMPRESSION Mild nonflow limiting coronary disease Reduced ejection fraction most likely stemming from atrial fibrillation with rapid response and accompanying tachycardia Mildly elevated LVEDP PLAN 1. Treatment of atrial fibrillation with rate control meds 2. Anticoagulation/Xarelto 20 mg daily 3. Standard risk factor modification for coronary disease Electronically signed by : Adán Dumont, 10/17/2020 13:16:14
--- NOTE | 2020-10-17 06:52 | ECG_ITS ---
APPROVED REPORT Exam: Resting ECG HR:120 bpm ECG Measurements Heart Rate 120 AXES QRSd 86 QRS 70 QT 314 T 62 QTc 443 Conclusion Atrial fibrillation with rapid ventricular response with premature ventricular or aberrantly conducted complexes Abnormal ECG Electronically signed by : Mainor Laboy, 10/17/2020 17:09:37
--- NOTE | 2020-10-17 07:04 | XR_ITS ---
PROCEDURE INFORMATION: Exam: XR Chest Exam date and time: 10/17/2020 7:04 AM Age: 65 years old Clinical indication: Shortness of breath; Patient HX: SOA nonsmoker TECHNIQUE: Imaging protocol: XR of the chest. Views: 2 views. COMPARISON: CR [id number] XR chest portable 05/29/2018 7:52 AM FINDINGS: Lungs: Lungs are well aerated without a focal area of consolidation. Pleural spaces: Unremarkable. No pleural effusion. No pneumothorax. Heart/Mediastinum: Unremarkable. No cardiomegaly. Bones/joints: Prior trauma left clavicle Soft tissues: Subtle nodular density lateral to the atrium on the right. Likely summation of structures. Possible jewish. Consider follow-up with nipple markers. IMPRESSION: 1. Subtle nodular density lateral to the atrium on the right. Likely summation of structures. Possible jewish. Consider follow-up with nipple markers. 2. Lungs are well aerated without a focal area of consolidation.
--- NOTE | 2020-10-17 07:04 | CA_ITS ---
APPROVED REPORT EXAM: Comprehensive 2D, Doppler, and color-flow Echocardiogram Scoop Operator: Yani Cifuentes RDCS Ht: 6 ft 0 in Wt: 190lbs BSA: 2.08 BP: 111/80 mmHg Indications: AF RVR,HTN,HLP,EX SMOKER,SOA,H/O TIA 2D Dimensions LVOT 2.06 cm (M/F) 1.5-2.5 LA Volume 55.60 mL LA Volume Index 26.73 mL/m2 (M/F) 16-34 M-Mode Dimensions RVDd 2.70 cm (0.9-2.6) LA Diam 3.20 cm (1.9-4.0) LVDd 4.64 cm (3.5-5.7) Ao Diam 3.51 cm (2.0-3.7) LVDs 4.10 cm (3.5-5.7) IVSd 0.68 cm (0.6-1.1) PWd 0.68 cm (0.6-1.1) EF (Teich) 25.30% FS 11.60% EDV (Teich) 99.30 mL TAPSE 2.82 (<1.7) ESV (Teich) 74.20 mL Left Ventricle Left atrium is mildly enlarged, left ventricle is normal size, mild concentric left ventricular hypertrophy, visually estimated ejection fraction 40 to 45%, left ventricle is globally hypokinetic, there is abnormal septal motion. Diastolic parameters are inconclusive. Right Ventricle Right atrium and right ventricle mildly enlarged with normal contractility. Aortic Valve Aortic valve is minimally thickened and fibrosed, there is no aortic stenosis or aortic insufficiency. Mitral Valve Mitral valve leaflets are minimally thickened, there is mild mitral regurgitation. Tricuspid Valve Tricuspid grossly normal, there is mild tricuspid regurgitation, tricuspid regurgitation jet velocity is inadequate for calculation of the right ventricular systolic pressure. Pulmonic Valve Pulmonic valve is poorly visualized. Great Vessels Aortic root is normal size. Pericardium No significant pericardial effusion noted. Conclusion 1. Mild biatrial enlargement, normal left ventricular size, mild concentric left ventricular hypertrophy, visually estimated ejection fraction 40 to 45%, left ventricle is globally hypokinetic, there is abnormal septal motion. Diastolic parameters are inconclusive. 2. Mildly enlarged right ventricle with normal contractility. 3. Mild mitral and tricuspid regurgitation. 4. No significant pericardial effusion noted. Electronically signed by : Harry Montenegro, 10/17/2020 22:01:11
--- NOTE | 2020-10-17 07:06 | HMH.EDSOB ---
ED Disposition Clinical Impression: Atrial fibrillation with rapid ventricular response Disposition: Admitted as Observation Condition on Discharge: Good Referrals: Mahendra Flor MD [Primary Care Provider] - - Critical Care Critical Care Time: No Attestation: On 10/17/20, the high probability of a clinically significant, sudden or life threatening deterioration of the following system(s) required my full and direct attention, intervention and personal management. The time I documented below is in addition to time spent performing reported procedures but includes the following listed in this critical care notation. Medical Decision Making - Medical Records Medical records reviewed: Yes: I reviewed the patient's medical records. - Chun Inquiry Pt receiving controlled substance: No Vital Signs: 10/17/20 06:48 10/17/20 07:53 10/17/20 08:00 Temperature 98.0 F Temperature Source Oral Pulse Rate 100 H 106 H Pulse Rate [Apical] 124 H Respiratory Rate 19 13 16 Blood Pressure 122/89 117/84 Blood Pressure [Right Arm] 111/80 Blood Pressure Mean 90 Blood Pressure Mean [Right Arm] 90 Blood Pressure Source [Right Arm] Automatic Cuff 02 Sat by Pulse Oximetry 99 92 L 95 Oxygen Delivery Method Room Air 10/17/20 08:30 10/17/20 09:00 Temperature Temperature Source Pulse Rate 103 H Pulse Rate [Apical] Respiratory Rate 16 Blood Pressure 130/81 133/82 Blood Pressure [Right Arm] Blood Pressure Mean 99 91 Blood Pressure Mean [Right Arm] Blood Pressure Source [Right Arm] 02 Sat by Pulse Oximetry 95 Oxygen Delivery Method - Lab Data Lab results reviewed: Yes: I reviewed the patient's lab results. Lab Results 10/17/20 07:00: WBC 7.3, RBC 5.22, Hgb 16.9, Hct 49.0, MCV 93.9, MCH 32.4 H, MCHC 34.5, RDW 12.7, Plt Count 202, MPV 7.1 L, Neut % (Auto) 60.1, Lymph % (Auto) 31.3, [place] % (Auto) 6.3, Eos % (Auto) 1.8, Baso % (Auto) 0.5, Neut # (Auto) 4.4, Lymph # (Auto) 2.3, [place] # (Auto) 0.5, Eos # (Auto) 0.1, Baso # (Auto) 0.0, ESR 6 10/17/20 07:00: Sodium 137, Potassium 3.7, Chloride 107, Carbon Dioxide 24, Anion Gap 9.7, BUN 12, Creatinine 0.80, Estimated Creat Clear 91, Estimated GFR 97, Est GFR ( Amer) 118, Glucose 171 H, Calcium 9.5, Total Bilirubin 0.9, AST 29, ALT 30, Alkaline Phosphatase 58, C-Reactive Protein 1.4, NT-Pro-B Natriuret Pep 652 H, Total Protein 7.3, Albumin 4.3, Globulin 3.0, Albumin/Globulin Ratio 1.4, Procalcitonin 0.075, TSH 3.96, Thyroxine (T4) 7.7 10/17/20 07:00: Troponin I < 0.01 Result diagrams: 10/17/20 07:00 10/17/20 07:00 Orders (Tests/Meds): ED MEDICATIONS Generic Name Dose Route Start Last Admin Trade Name Freq PRN Reason Stop Dose Admin Diltiazem HCl 100 mg/ Sodium 100 mls @ 5 mls/hr 10/17/20 07:15 10/17/20 07:55 Chloride IV 11/16/20 07:14 5 mls/hr .Q20H TERRIE Administration Protocol Discontinued Medications Generic Name Dose Route Start Last Admin Trade Name Freq PRN Reason Stop Dose Admin Diltiazem HCl 10 mg 10/17/20 07:09 10/17/20 07:10 Diltiazem 25mg/5ml Vial IV 10/17/20 07:10 10 mg ONCE ONE Administration Sodium Chloride 1,000 mls @ 999 mls/hr 10/17/20 07:15 10/17/20 07:11 Sod Chlor 0.9% 1000ml Bag IV 10/17/20 08:15 999 mls/hr .Q1H1M TERRIE Administration ORDERS Category Date Time Status Full Resp Panel w/COVID ([facility]) Routine Lab 10/17/20 07:11 Received Troponin I Q3H Lab 10/17/20 10:30 Ordered Troponin I Q3H Lab 10/17/20 13:30 Ordered - Radiology Data #1 Image(s): Chest Image Reviewed: Yes I reviewed the patient's radiology image Preliminary Findings: Normal/NAD - US Data US Images: Other (echo) ED US Reviewed: Yes: I have viewed radiologist's interpretation Findings Narrative: see report - ECG Data Tracing #1 Arrhythmias present: afib Ischemic changes: non-specific ST-T wave changes - Physician Consults Physician Consulted: vijay Reason -: Pt
[2020-10-17 07:14] LABS: Basophils % 0.5 % (0.1-2.0); Eosinophils # 0.1 K/mm3 (0.0-0.4); Eosinophils % 1.8 % (0.1-12.0); Hemoglobin 16.9 g/dL (14.1-18.0); Lymphocytes # 2.3 K/mm3 (0.7-4.5); Lymphocytes % 31.3 % (10-50); Mean Corpuscular HGB Conc 34.5 g/dL (31.8-35.4); Mean Corpuscular Hemoglobin 32.4 pg (27.0-31.2); Mean Corpuscular Volume 93.9 fl (80-94); Mean Platelet Volume 7.1 fl (7.4-10.4); Monocytes # 0.5 K/mm3 (0.1-1.0); Monocytes % 6.3 % (1.7-9.3); Neutrophils # 4.4 K/mm3 (1.8-7.8); Neutrophils % 60.1 % (37.0-80.0); Platelet Count 202 K/mm3 (142-424); Red Blood Count 5.22 M/mm3 (4.60-6.20); Red Cell Distribution Width 12.7 % (11.5-17.5); White Blood Count 7.3 K/mm3 (4.8-10.8)
--- NOTE | 2020-10-17 07:16 | PC.NURSE ---
Dr. Matta s/w Dr. Flor
[2020-10-17 07:21] LABS: Alanine Aminotransferase 30 U/L (12-78); Albumin Level 4.3 g/dl (3.5-5.0); Albumin/Globulin Ratio 1.4 (1.1-1.8); Alkaline Phosphatase 58 U/L (38-126); Anion Gap 9.7 mEq/L (5-15); Aspartate Amino Transferase 29 U/L (17-59); Bilirubin,Total 0.9 mg/dl (0.2-1.3); Blood Urea Nitrogen 12 mg/dl (9-20); Calcium 9.5 mg/dl (8.4-10.2); Carbon Dioxide 24 mmol/L (22.0-30.0); Chloride 107 mmol/L (98-107); Creatinine Clearance Estimated 91 mL/min (50-200); Estimated Glomerular Filt Rate 97 ml/min (>60); GFR (African American) 118 ML/MIN (>60); Glucose 171 mg/dl (74-100); Potassium 3.7 mmoL/L (3.5-5.1); Sodium 137 mmol/L (136-145); Total Protein,Serum 7.3 g/dl (6.3-8.2)
--- NOTE | 2020-10-17 07:24 | PC.NURSE ---
Echo at bedside
[2020-10-17 07:27] LABS: C-Reactive Protein 1.4 mg/L (0-4)
[2020-10-17 07:31] LABS: Adenovirus,PCR Not Detected (NotDetected); Bordetella Pertussis Not Detected (NotDetected); Chlamydophila Pneumoniae, PCR Not Detected (NotDetected); Coronavirus 19, PCR Not Detected (NotDetected); Coronavirus 229E Not Detected (NotDetected); Coronavirus NL63 Not Detected (NotDetected); Coronavirus OC43 Not Detected (NotDetected); Coronovirus HKU1,PCR Not Detected (NotDetected); Human Metapneumovirus Not Detected (NotDetected); Influenza A, PCR Not Detected (NotDetected); Influenza AH1, 2009 Not Detected (NotDetected); Influenza AH1, PCR Not Detected (NotDetected); Influenza AH3,PCR Not Detected (NotDetected); Influenza B, PCR Not Detected (NotDetected); Mycoplasma Pneumoniae, PCR Not Detected (NotDetected); Parainfluenza 1, PCR Not Detected (NotDetected); Parainfluenza 2, PCR Not Detected (NotDetected); Parainfluenza 3, PCR Not Detected (NotDetected); Parainfluenza 4, PCR Not Detected (NotDetected); Respiratory Syncytial Virus Not Detected (NotDetected); Rhinovirus/Enterovirus Not Detected (NotDetected)
--- NOTE | 2020-10-17 07:45 | PC.NURSE ---
Echo completed at this time. Pt going to rad. Will hang cardizen drip once pt returns. aware and ok with POC
[2020-10-17 07:46] LABS: Erythrocyte Sedimentation Rate 6 mm/hr (0-20)
[2020-10-17 07:48] LABS: NT Pro Brain Natriuretic Pep. 652 pg/mL (0-125)
--- NOTE | 2020-10-17 07:52 | PC.NURSE ---
Pt returned from rad
--- NOTE | 2020-10-17 07:52 | PC.NURSE ---
Pt returned from rad
[2020-10-17 07:54] LABS: Troponin I < 0.01 ng/ml (0.00-0.034)
[2020-10-17 07:55] LABS: Procalcitonin 0.075 ng/mL (0.0-2.0); T4 (Thyroxine) 7.7 ug/dl (5.53-11.0)
[2020-10-17 08:09] LABS: Thyroid Stimulating Hormone 3.96 uIU/mL (0.465-4.68)
--- NOTE | 2020-10-17 08:25 | PC.NURSE ---
Dr. Flor at bedside
--- NOTE | 2020-10-17 09:19 | PC.NURSE ---
speaking with Dr. Flor
--- NOTE | 2020-10-17 09:21 | PC.NURSE ---
called care management for admission
--- NOTE | 2020-10-17 09:56 | PC.NURSE ---
Called report to floor
--- NOTE | 2020-10-17 10:06 | PC.NURSE ---
Pt up on side of bed eating breakfast. Called report to [facility]. Advised when room was cleaned she would come and get the patient
--- NOTE | 2020-10-17 10:10 | HMH.HP ---
*Admission Date: 10/17/20 <Karen Marino - 10/17/20 10:27> *Chief complaint: heart rate with SOB <Karen Marino 10/17/20 10:27> *History of present illness: Mr. Munoz is a 65-year-old male with a history of TIA, atrial fibrillation, and renal insufficiency who presented to [facility] this a.m. with a rapid heart rate and shortness of breath. He states his heart rate became rapid yesterday around 3:30 PM. 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 When he came in from this activity he told his he was short of breath. He denied having any chest pain. The rapid heart rate continued throughout the night and he was unable to sleep. Thus he came to the emergency room for evaluation. He continues to deny chest discomfort. He has had no nausea and no vomiting. He has been eating normally. He denies leg edema. With evaluation in the emergency room he was found to be in atrial fib with a rapid ventricular response in the 120s. Echo preliminary as per ER physician revealed a low ejection fraction. Chest x-ray revealed a subsubtle nodular density in the lungs and well aerated without focal area of consolidation. Heart rate did vary between 110 and 149. He was started on a Cardizem drip after bolus. He was then admitted for further evaluation and treatment with a cardiac consultation. At the time of this exam patient is lying comfortably on a stretcher. Heart rate per monitor shows ventricular rate in the 80s up to 100. He remains in atrial fib. He denies shortness of breath at this point. On admission CBC was satisfactory. Blood chemistries show normal electrolytes and kidney function. Liver functions studies are also normal. BNP elevated at 652. <Karen Marino 10/17/20 10:27> [facility] History Medical History: Reports:: Atrial Fibrillation, Hyperlipidemia, Hypertension, Seizures, Transient Ischemic Attacks (TIA) Denies:: Cancer, Diabetes Mellitus Type 1, Diabetes Mellitus Type 2, Lung Disease, MRSA <Karen Marino 10/17/20 10:27> *Have you ever received a pneumonia vaccine?: No <Karen Marino 10/17/20 10:27> *Have you received a flu vaccine this season?: No <Karen Marino 10/17/20 10:27> Other Medical History: Reports: Other <Karen Marino 10/17/20 10:27> Laterality Cases: Bilateral: Arthroscopy Knee <Karen Marino 10/17/20 10:27> Other Surgeries: Yes: Colonoscopy, Hernia Repair <NedKaren 10/17/20 10:27> Amputation: No <NedKaren 10/17/20 10:27> Fractures: No <Karen Marino 10/17/20 10:27> - *Social History Smoking Status: Former smoker <NedKaren 10/17/20 10:27> Alcohol Intake: never <NedKaren 10/17/20 10:27> Alcohol Intake Frequency:: holidays/special occasions only <NedKaren 10/17/20 10:27> Substance Use Type: denies use <MarinoKaren 10/17/20 10:27> *Occupational Status:: employed <NedKaren 10/17/20 10:27> Housing: house <Karen Marino 10/17/20 10:27> Household Members: spouse <Karen Marino 10/17/20 10:27> *Travel in the last 8 weeks: None <NedKaren 10/17/20 10:27> Family Hx:: Cancer, Coronary Artery Disease <MarinoKaren 10/17/20 10:27> Review of Systems - Constitutional Denies fever(s) <NedKaren 10/17/20 10:27> - Eyes Denies change in vision <Marino,Karen - 10/17/20 10:27> - ENT Denies ear pain, Denies sore throat, Denies dizziness <NedKaren 10/17/20 10:27> - *Cardiovascular Reports shortness of breath, Reports irregular heart rhythm, Reports rapid, pounding, or irregular heartbeat, Denies chest pain, Denies leg swelling <Karen Marino 10/17/20 10:27> - *Respiratory Reports shortness of breath, Denies chest congestion, Denies cough <Karen Marino - 10/17/20 10:27> - *Gastrointestinal Denies abdominal pain, Denies constipation, Denies loose stools, Denies heartburn, Denies nausea, Denies vomiting <Karen Marino - 10/17/
--- NOTE | 2020-10-17 10:14 | PC.NURSE ---
received call from Keisha in the lab explaining that COVID test is inconclusive and has to be ran a 2nd time. She will call me with results.
--- NOTE | 2020-10-17 10:32 | PC.NURSE ---
received call from Keisha in lab stating that COVID test is negative.
[2020-10-17 11:19] LABS: Troponin I < 0.01 ng/ml (0.00-0.034)
--- NOTE | 2020-10-17 11:33 | PC.NURSE ---
Called to check on status of bed and advised the room was drying now
--- NOTE | 2020-10-17 11:39 | PC.NURSE ---
Pt up to bathroom.
--- NOTE | 2020-10-17 12:10 | HMH.CNCARD ---
History of Present Illness Consult date: 10/17/20 Requesting physician: Mahendra Flor Consult reason: atrial fibrillation, shortness of breath Chief complaint: palpitations, SOA History of present illness: This is a 65-year-old white gentleman who presented to the emergency department with complaints of shortness of breath and racing of the heart. Mr. Toro has a history of paroxysmal atrial fibrillation, TIA and hypertension. He states that yesterday around 3:30 PM he started to feel his heart racing. He states that his heart was just beating really fast but he continued to go ahead and mow the lawn. He states that when he came in last night from mowing the lawn he was a little short of breath but nothing significant. He states that he went on to bed and was unable to really sleep last night because his heart was beating so fast. He woke up this morning and states that he was more short of breath and just did not feel well. He decided to come into the emergency department. He denies any chest pain or pressure. No fever, chills, nausea, vomiting, diarrhea, PND or orthopnea. While in the emergency department he was found to be in atrial fibrillation with rapid ventricular response. His heart rate was around 120s. The patient was treated with a Cardizem bolus and drip and his heart rate is now in the 90s. He did have an echocardiogram which preliminarily shows cardiomyopathy with an ejection fraction of 35 to 45%. [facility] History I have reviewed the patient's past medical history: Yes Medical History: Reports:: Atrial Fibrillation, Hyperlipidemia, Hypertension, Seizures, Transient Ischemic Attacks (TIA) Denies:: Cancer, Diabetes Mellitus Type 1, Diabetes Mellitus Type 2, Lung Disease, MRSA *Have you ever received a pneumonia vaccine?: No *Have you received a flu vaccine this season?: No Other Medical History: Reports: Other Laterality Cases: Bilateral: Arthroscopy Knee Other Surgeries: Yes: Colonoscopy, Hernia Repair Amputation: No Fractures: No - *Social History Smoking Status: Former smoker Alcohol Intake: never Alcohol Intake Frequency:: holidays/special occasions only Substance Use Type: denies use *Occupational Status:: employed Housing: house Household Members: spouse *Travel in the last 8 weeks: None Family Hx:: Cancer, Coronary Artery Disease Meds Home Medications Medication Instructions Recorded Confirmed Type Rivaroxaban [Xarelto 20mg Tablet*] 20 mg PO QPMWM 08/04/20 10/17/20 History Allergies Allergy/AdvReac Type Severity Reaction Status Date / Time Penicillins Allergy Hives Verified 09/25/18 14:24 Exam Vital signs and Labs for Last 24 Hours: Temp Pulse Resp BP Pulse Ox 97.7 F 113 H 20 117/70 95 10/17/20 12:03 10/17/20 12:03 10/17/20 12:03 10/17/20 12:03 10/17/20 12:03 Laboratory Results - last 24 hr 10/17/20 07:00: WBC 7.3, RBC 5.22, Hgb 16.9, Hct 49.0, MCV 93.9, MCH 32.4 H, MCHC 34.5, RDW 12.7, Plt Count 202, MPV 7.1 L, Neut % (Auto) 60.1, Lymph % (Auto) 31.3, [place] % (Auto) 6.3, Eos % (Auto) 1.8, Baso % (Auto) 0.5, Neut # (Auto) 4.4, Lymph # (Auto) 2.3, [place] # (Auto) 0.5, Eos # (Auto) 0.1, Baso # (Auto) 0.0, ESR 6 10/17/20 07:00: Sodium 137, Potassium 3.7, Chloride 107, Carbon Dioxide 24, Anion Gap 9.7, BUN 12, Creatinine 0.80, Estimated Creat Clear 91, Estimated GFR 97, Est GFR ( Amer) 118, Glucose 171 H, Calcium 9.5, Total Bilirubin 0.9, AST 29, ALT 30, Alkaline Phosphatase 58, C-Reactive Protein 1.4, NT-Pro-B Natriuret Pep 652 H, Total Protein 7.3, Albumin 4.3, Globulin 3.0, Albumin/Globulin Ratio 1.4, Procalcitonin 0.075, TSH 3.96, Thyroxine (T4) 7.7 10/17/20 07:00: Troponin I < 0.01 10/17/20 07:11: Chlamy pneumoniae PCR Not detected, Adenovirus (PCR) Not detected, B. pertussis DNA (PCR) Not detected, Coronavirus OC43 (PCR) Not detected, Coronavirus HKU1 (PCR) Not detected, Coronavirus 229E (PCR) Not detected, SARS-CoV-2 (PCR) Not detected, Coronavirus NL63 (PCR) Not detected, Hum
--- NOTE | 2020-10-17 13:16 | HMH.PHAVTE ---
[facility] Pharmacy VTE Monitoring - Patient Demographics Admission date: 10/17/20 Report Date: 10/17/20 Time: 13:16 Allergies/Adverse Reactions: Patient Allergies Penicillins Allergy (Verified 09/25/18 14:24) Hives Height: 1.83 m Weight: 83.064 kg Patient Problems: Current Active Problems Atrial fibrillation with rapid ventricular response (Acute) Afib (Acute) - VTE Risk Labs: VTE Related Lab Results Hgb 16.9 g/dL (14.1-18.0) 10/17/20 07:00 Hct 49.0 % (42.0-52.0) 10/17/20 07:00 Plt Count 202 K/mm3 (142-424) 10/17/20 07:00 BUN 12 mg/dl (9-20) 10/17/20 07:00 Creatinine 0.80 mg/dl (0.66-1.25) 10/17/20 07:00 Estimated Creat Clear 91 mL/min (50-200) 10/17/20 07:00 Was VTE Risk Assessment Performed: Yes VTE Score: 2 VTE Risk Level: Very Low Risk - Prophylaxis VTE Prophylaxis Ordered?: Yes Types of VTE Prophylaxis: TEDS Knee High, Pharmacological Location of Applied Device: Bilateral Lower Extremeties Pharmacologic Type: Other (XARELTO)
--- NOTE | 2020-10-17 13:50 | PC.NURSE ---
pt back from cathlab with Diltiazem gtt @ 10mg/hr. Pt continues in Afib.
--- NOTE | 2020-10-17 15:48 | PC.NURSE ---
pt converted to NSR @ 1548 for aprox 24 min then went in to Aflutter and Afib. Dr. Flor @ BS and is aware.
--- NOTE | 2020-10-17 16:28 | PC.NURSE ---
Diltiazem gtt decreased to 5mg/hr. HR 64. Currently NSR. Will flip between NSR, Afib, and Aflutter.
--- NOTE | 2020-10-17 17:28 | ECG_ITS ---
APPROVED REPORT Exam: Resting ECG HR:78 bpm ECG Measurements Heart Rate 78 AXES DC 178 P 82 QRSd 90 QRS 55 QT 378 T 48 QTc 430 Conclusion Normal sinus rhythm Normal ECG Electronically signed by : Mainor Laboy, 10/20/2020 09:08:38
--- NOTE | 2020-10-17 17:31 | PC.NURSE ---
paged Dr. Flor as pt is sustaining NSR with rates in the 80s. EKG ordered and reveals NSR. Received new order for Diltiazem 120mg ER capsule x 1 dose NOW. New order faxed to pharmacy.
--- NOTE | 2020-10-17 18:54 | PC.NURSE ---
Diltiazem gtt turned OFF.
--- NOTE | 2020-10-17 20:01 | PC.NURSE ---
He is A&Ox3. He denies pain including chest pain. Ambulates independently with steady gait. States that he often has restless legs at night and requested a stool for shower. He continues on RA. Lung sounds CTA. Normal bowel sounds. States his last BM was today. NSR on telemetry. DSG on right radial site is C/D/I. Capillary refill <3. Positive radial and pedal pulses.
[2020-10-18] VITALS (7 sets, daily range): BP systolic 95–119; BP diastolic 57–84; PULSE 67–90; TEMP 36.7–37.4; O2SAT 93–97; BMI 24.5
[2020-10-18 06:32] LABS: Anion Gap 9.9 mEq/L (5-15); Blood Urea Nitrogen 12 mg/dl (9-20); Calcium 8.8 mg/dl (8.4-10.2); Carbon Dioxide 24 mmol/L (22.0-30.0); Chloride 108 mmol/L (98-107); Cholesterol 246 mg/dl (140-200); Creatinine Clearance Estimated 87 mL/min (50-200); Estimated Glomerular Filt Rate 97 ml/min (>60); GFR (African American) 118 ML/MIN (>60); Glucose 106 mg/dl (74-100); HDL Cholesterol 49 mg/dl (40-60); Potassium 3.9 mmoL/L (3.5-5.1); Sodium 138 mmol/L (136-145); Triglycerides 133 mg/dl (30-150); VLDL Cholesterol 27 mg/dL (0-40)
[2020-10-18 06:34] LABS: Basophils # 0.1 K/mm3 (0-0.2); Basophils % 0.8 % (0.1-2.0); Eosinophils # 0.1 K/mm3 (0.0-0.4); Eosinophils % 2.1 % (0.1-12.0); Hematocrit 47.9 % (42.0-52.0); Hemoglobin 16.4 g/dL (14.1-18.0); Lymphocytes # 2.4 K/mm3 (0.7-4.5); Lymphocytes % 35.1 % (10-50); Mean Corpuscular HGB Conc 34.1 g/dL (31.8-35.4); Mean Corpuscular Hemoglobin 32.6 pg (27.0-31.2); Mean Corpuscular Volume 95.5 fl (80-94); Mean Platelet Volume 7.2 fl (7.4-10.4); Monocytes # 0.6 K/mm3 (0.1-1.0); Neutrophils # 3.7 K/mm3 (1.8-7.8); Platelet Count 199 K/mm3 (142-424); Red Blood Count 5.02 M/mm3 (4.60-6.20); Red Cell Distribution Width 12.7 % (11.5-17.5); White Blood Count 6.8 K/mm3 (4.8-10.8)
[2020-10-18 06:43] LABS: Direct LDL Cholesterol 151.83 mg/dL (100-129)
--- NOTE | 2020-10-18 07:55 | HMH.PNCARD ---
Subjective Date: 10/18/20 Time: 07:45 Principal diagnosis: afib with rvr Interval history: This is a 65-year-old gentleman who presented to the emergency department with shortness of breath and racing of the heart. The patient was found to be in atrial fibrillation with RVR. Heart rate is around 120. The patient did have new onset cardiomyopathy with an ejection fraction of 40 to 45%. He underwent left cardiac catheterization yesterday and was found to have mild coronary artery disease that was nonflow limiting and his atrial fibrillation was likely the cause of his cardiomyopathy. The patient did convert to sinus rhythm overnight on a diltiazem drip. His diltiazem drip has been stopped and he was given an oral dose of diltiazem last night. This morning he states that he feels well. He denies any palpitations or racing of the heart. He denies any chest pain or pressure. He denies any shortness of breath or edema. He denies any fever, chills, nausea, vomiting, diarrhea, PND or orthopnea. Exam Vital signs and Labs for Last 24 Hours: Temp Pulse Resp BP Pulse Ox 98.0 F 88 16 119/84 94 L 10/18/20 07:45 10/18/20 06:00 10/17/20 20:30 10/18/20 06:00 10/18/20 06:00 Laboratory Results - last 24 hr 10/17/20 07:00: Procalcitonin 0.075, TSH 3.96, Thyroxine (T4) 7.7 10/17/20 07:11: Chlamy pneumoniae PCR Not detected, Adenovirus (PCR) Not detected, B. pertussis DNA (PCR) Not detected, Coronavirus OC43 (PCR) Not detected, Coronavirus HKU1 (PCR) Not detected, Coronavirus 229E (PCR) Not detected, SARS-CoV-2 (PCR) Not detected, Coronavirus NL63 (PCR) Not detected, Human Metapneumovir PCR Not detected, Influenza A (H1) PCR Not detected, Influ A (H1N1/09) PCR Not detected, Influenza A (H3) PCR Not detected, Influenza Type A (PCR) Not detected, Influenza Type B (PCR) Not detected, M. pneumoniae (PCR) Not detected, Parainfluenza 1 (PCR) Not detected, Parainfluenza 2 (PCR) Not detected, Parainfluenza 3 (PCR) Not detected, Parainfluenza 4 (PCR) Not detected, RSV (PCR) Not detected, Entero/Rhino (PCR) Not detected 10/17/20 10:29: Troponin I < 0.01 10/18/20 05:53: WBC 6.8, RBC 5.02, Hgb 16.4, Hct 47.9, MCV 95.5 H, MCH 32.6 H, MCHC 34.1, RDW 12.7, Plt Count 199, MPV 7.2 L, Neut % (Auto) 54.0, Lymph % (Auto) 35.1, [place] % (Auto) 8.0, Eos % (Auto) 2.1, Baso % (Auto) 0.8, Neut # (Auto) 3.7, Lymph # (Auto) 2.4, [place] # (Auto) 0.6, Eos # (Auto) 0.1, Baso # (Auto) 0.1 10/18/20 05:53: Sodium 138, Potassium 3.9, Chloride 108 H, Carbon Dioxide 24, Anion Gap 9.9, BUN 12, Creatinine 0.80, Estimated Creat Clear 87, Estimated GFR 97, Est GFR ( Amer) 118, Glucose 106 H D, Calcium 8.8, Magnesium 2.0, Triglycerides 133, Cholesterol 246 H, LDL Cholesterol Direct 151.83 H, VLDL Cholesterol 27, HDL Cholesterol 49, Cholesterol/HDL Ratio 5.0 H I & O for Last 24 hours: Intake & Output 10/15/20 10/16/20 10/17/20 10/18/20 23:59 23:59 23:59 23:59 Intake Total 1540 / 1540 883 / 883 Output Total 500 / 500 Balance 1040 / 1040 883 / 883 Weight 183 lb 2 oz 181 lb 1 oz Narrative: Echo shows: 1. Mild biatrial enlargement, normal left ventricular size, mild concentric left ventricular hypertrophy, visually estimated ejection fraction 40 to 45%, left ventricle is globally hypokinetic, there is abnormal septal motion. Diastolic parameters are inconclusive. 2. Mildly enlarged right ventricle with normal contractility. 3. Mild mitral and tricuspid regurgitation. 4. No significant pericardial effusion noted. - Constitutional no acute distress, average body habitus - *Routine HEENT Exam Head: Present: normocephalic, atraumatic Eye: Present: EOMI, PERRL ENT: Present: mucous membranes moist - *Routine Neck Exam Present: supple, full ROM, normal carotid upstroke. Absent: JVD, carotid bruit, lymphadenopathy - *Routine Respiratory Exam Present: CTA bilaterally - *Routine Cardiovascular Exam Present: RRR, Normal S1, Normal S2. Absent: murmur - *R
--- NOTE | 2020-10-18 08:09 | HMH.ACPN2 ---
<Karen Marino - Last Filed: 10/18/20 08:09> Internal Medicine - PN: Subj *Date: 10/18/20 *Time: 08:09 Interval history: Patient states he slept some last night. He did convert to normal sinus rhythm and was started on p.o. Cardizem. He denies chest pain and shortness of breath. He is eating without difficulty. He is ambulated in the room without problems. Laboratory data shows satisfactory CBC with blood chemistry showing normal sodium and potassium cholesterol profile shows cholesterol of 246 with an LDL of 151 and an HDL of 49. Triglycerides are 246. Patient did have a cardiac cath yesterday with the following results: IMPRESSION Mild nonflow limiting coronary disease Reduced ejection fraction most likely stemming from atrial fibrillation with rapid response and accompanying tachycardia Mildly elevated LVEDP PLAN 1. Treatment of atrial fibrillation with rate control meds 2. Anticoagulation/Xarelto 20 mg daily 3. Standard risk factor modification for coronary disease Exam Vital signs and Labs for Last 24 Hours: Temp Pulse Resp BP Pulse Ox 98.0 F 88 16 119/84 94 L 10/18/20 07:45 10/18/20 06:00 10/17/20 20:30 10/18/20 06:00 10/18/20 06:00 Laboratory Results - last 24 hr 10/17/20 07:00: TSH 3.96 10/17/20 07:11: Chlamy pneumoniae PCR Not detected, Adenovirus (PCR) Not detected, B. pertussis DNA (PCR) Not detected, Coronavirus OC43 (PCR) Not detected, Coronavirus HKU1 (PCR) Not detected, Coronavirus 229E (PCR) Not detected, SARS-CoV-2 (PCR) Not detected, Coronavirus NL63 (PCR) Not detected, Human Metapneumovir PCR Not detected, Influenza A (H1) PCR Not detected, Influ A (H1N1/09) PCR Not detected, Influenza A (H3) PCR Not detected, Influenza Type A (PCR) Not detected, Influenza Type B (PCR) Not detected, M. pneumoniae (PCR) Not detected, Parainfluenza 1 (PCR) Not detected, Parainfluenza 2 (PCR) Not detected, Parainfluenza 3 (PCR) Not detected, Parainfluenza 4 (PCR) Not detected, RSV (PCR) Not detected, Entero/Rhino (PCR) Not detected 10/17/20 10:29: Troponin I < 0.01 10/18/20 05:53: WBC 6.8, RBC 5.02, Hgb 16.4, Hct 47.9, MCV 95.5 H, MCH 32.6 H, MCHC 34.1, RDW 12.7, Plt Count 199, MPV 7.2 L, Neut % (Auto) 54.0, Lymph % (Auto) 35.1, [place] % (Auto) 8.0, Eos % (Auto) 2.1, Baso % (Auto) 0.8, Neut # (Auto) 3.7, Lymph # (Auto) 2.4, [place] # (Auto) 0.6, Eos # (Auto) 0.1, Baso # (Auto) 0.1 10/18/20 05:53: Sodium 138, Potassium 3.9, Chloride 108 H, Carbon Dioxide 24, Anion Gap 9.9, BUN 12, Creatinine 0.80, Estimated Creat Clear 87, Estimated GFR 97, Est GFR ( Amer) 118, Glucose 106 H D, Calcium 8.8, Magnesium 2.0, Triglycerides 133, Cholesterol 246 H, LDL Cholesterol Direct 151.83 H, VLDL Cholesterol 27, HDL Cholesterol 49, Cholesterol/HDL Ratio 5.0 H I & O for Last 24 hours: Intake & Output 10/15/20 10/16/20 10/17/20 10/18/20 11:59 11:59 11:59 11:59 Intake Total 2423 / 2423 Output Total 500 / 500 Balance 1922 / 1922 Weight 190 lb 181 lb 1 oz - Constitutional no acute distress - *Routine Respiratory Exam Present: CTA bilaterally (Anteriorly and posteriorly) - *Routine Cardiovascular Exam Present: RRR (Monitor showing sinus rhythm) - *Routine Abdominal Exam Present: soft, normoactive bowel sounds. Absent: tenderness, distended - *Routine Extremities Exam Absent: edema, calf tenderness - *Routine Neurological Exam Present: alert, oriented X3 Assessment and Plan (1) SOB (shortness of breath) Status: Acute Category: Medical Code(s): R06.02 - Shortness of breath (2) Atrial fibrillation with rapid ventricular response Status: Acute Category: Medical Code(s): I48.91 - Unspecified atrial fibrillation (3) Cardiomyopathy Status: Acute Category: Medical Code(s): I42.9 - Cardiomyopathy, unspecified (4) HTN (hypertension) Status: Chronic Category: Medical Code(s): I10 - Essential (primary) hypertension (5) History of TIA (transient ischemic attack) Status
--- NOTE | 2020-10-18 16:37 | HMH.DCSUM ---
General - General Admission date:: 10/17/20 Discharge date: 10/18/20 HPI HPI: Mr. Munoz is a 65-year-old male with a history of TIA, atrial fibrillation, and renal insufficiency who presented to [facility] this a.m. with a rapid heart rate and shortness of breath. He states his heart rate became rapid yesterday around 3:30 PM. 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 When he came in from this activity he told his he was short of breath. He denied having any chest pain. The rapid heart rate continued throughout the night and he was unable to sleep. Thus he came to the emergency room for evaluation. He continues to deny chest discomfort. He has had no nausea and no vomiting. He has been eating normally. He denies leg edema. With evaluation in the emergency room he was found to be in atrial fib with a rapid ventricular response in the 120s. Echo preliminary as per ER physician revealed a low ejection fraction. Chest x-ray revealed a subsubtle nodular density in the lungs and well aerated without focal area of consolidation. Heart rate did vary between 110 and 149. He was started on a Cardizem drip after bolus. He was then admitted for further evaluation and treatment with a cardiac consultation. At the time of this exam patient is lying comfortably on a stretcher. Heart rate per monitor shows ventricular rate in the 80s up to 100. He remains in atrial fib. He denies shortness of breath at this point. On admission CBC was satisfactory. Blood chemistries show normal electrolytes and kidney function. Liver functions studies are also normal. BNP elevated at 652. Hospital Course Hospital Course: The patient was admitted and cardiology was consulted. He was continued on his Cardizem drip. His echo showed an EF of 35 to 45% which was a new onset cardiomyopathy. Cardiology wanted to proceed with a left heart cath. The left heart cath showed mild nonflow limiting coronary disease with a reduced ejection fraction most likely stemming from his atrial fibrillation with rapid response. He also had a mildly elevated LVEDP. Cardiology wanted to treat his atrial fibrillation with rate control medication and continue him on anticoagulation with Xarelto 20 mg daily. His Cardizem drip was titrated for rate control and he was started on 81 mg aspirin in addition to his Xarelto. He converted to normal sinus rhythm on his diltiazem drip and it was stopped and he was given oral diltiazem. He felt much better. Cardiology felt he could be discharged on oral diltiazem ER 120 mg daily. They also recommended a beta-alma, therefore Dr. Flor started him on 25 mg of Toprol XL. He will follow-up with both cardiology and Dr. Flor. Objective Vital signs: Temp Pulse Resp BP Pulse Ox 98.0 F 90 16 119/84 94 L 10/18/20 07:45 10/18/20 08:18 10/17/20 20:30 10/18/20 06:00 10/18/20 06:00 Narrative: - Constitutional no acute distress <NedKaren - 10/17/20 10:27> Comments: Lying comfortably on stretcher in the emergency room. Breathing is easy and unlabored - *Routine HEENT Exam Head: Present: normocephalic, atraumatic Eye: Present: PERRL. Absent: conjunctival icterus, scleral injection ENT: Present: mucous membranes moist, oropharynx clear, dentition normal - *Routine Neck Examdd Absent: carotid bruit, lymphadenopathy, thyromegaly - *Routine Respiratory Exam Present: CTA bilaterally (Anteriorly and posteriorly) - *Routine Cardiovascular Exam Present: irregularly irregular (Atrial fib on monitor with ventricular rate ranging from 80-100) - *Routine Abdominal Exam Present: soft, normoactive bowel sounds. Absent: tenderness, distended - *Routine Rectal Exam Rectal:: deferred - *Routine Genitalia Exam Genitalia:: deferred - *Routine Extremities Exam Absent: edema, calf tenderness - *Ro
== END 2020-10-18 10:24 | disposition home or self-care (01) ==
LOC: ER 09:23 → 2ND 09:37
PROVIDERS: Internal Medicine; Admitting Provider Family Medicine; Emergency Provider Emergency Medicine; PCP Family Medicine; Visit Provider Family Medicine
DX: I48.0 Paroxysmal atrial fibrillation (principal); I42.9 Cardiomyopathy, unspecified; I25.10 Atherosclerotic heart disease of native coronary artery without angina pectoris; I10 Essential (primary) hypertension; E78.5 Hyperlipidemia, unspecified; Z86.73 Personal history of transient ischemic attack (TIA), and cerebral infarction without residual deficits; Z20.822 Contact with and (suspected) exposure to COVID-19; Z87.891 Personal history of nicotine dependence; Z88.0 Allergy status to penicillin
CPT/HCPCS: 36415; 71046; 80048; 80053; 80061; 83735; 83880; 84145; 84436; 84443; 84484; 85025; 85651; 86140; 87581; 87633; 87798; 93005; 93306; 93458; 96365; 96367; 96375; 99152; 99283; C1725; C1760; C1769; G0378; J1644; Q9967

== ENCOUNTER → 2021-12-17 14:52 | Outpatient (CLI) | payer MEDICARE, SELFPAY ==
--- NOTE | 2021-12-17 | CA_ITS ---
APPROVED REPORT EXAM: Comprehensive 2D, Doppler, and color-flow Echocardiogram [employer] Clerk: Polina Doe CRT Ht: 6 ft 0 in Wt: 179lbs BSA: 2.03 BP: 104/63 mmHg Indications: Shortness of Breath, CVA/TIA, Atrial Fibrillation, Hyperlipidemia, Hypertension/HDD ef 40-45% 10/17/21 2D Dimensions LVOT 1.99 cm (M/F) 1.5-2.5 LA Volume 38.90 mL LA Volume Index 19.20 mL/m2 (M/F) 16-34 M-Mode Dimensions RVDd 2.89 cm (0.9-2.6) LA Diam 3.20 cm (1.9-4.0) LVDd 4.50 cm (3.5-5.7) Ao Diam 4.29 cm (2.0-3.7) LVDs 3.46 cm (3.5-5.7) IVSd 1.64 cm (0.6-1.1) PWd 0.78 cm (0.6-1.1) EF (Teich) 46.40% FS 23.10% EDV (Teich) 92.40 mL TAPSE 1.90 (<1.7) ESV (Teich) 49.50 mL LV Diastology E Decel Time 247.00 (160-240 msec) E/A Ratio 1.15 MED E' 9.40 (< 7 cm/sec) MED A' 9.70 cm/s E'/MED E' Ratio 7.21 (>14) LAT E' 9.20 (<10 cm/sec) LAT A' 11.00 cm/s E/LAT E' Ratio 7.37 (>14) Aortic Valve AO Peak GR. 4.10 mmHg Mitral Valve MV A Velocity 59.00 (40-130 cm/s) E/A Ratio 1.15 MV Decel. Time 247.00 (160-240 ms) Pulmonary Valve PV Peak Velocity 90.00 (50-150 cm/s) Tricuspid Valve TR P. Velocity 225.00 cm/s RAP Estimate 10.00 mmHg RVSP 30.20 mmHg Left Ventricle Atrium is mildly enlarged, left ventricle is normal size mild concentric left ventricular hypertrophy, estimated ejection fraction 55% with no regional wall motion abnormality, diastolic parameters are inconclusive. Right Ventricle Right atrium and right ventricle are mildly enlarged with normal contractility. Aortic Valve Aortic valve is minimally thickened and fibrosed there is no aortic stenosis or aortic insufficiency. Mitral Valve Mitral valve grossly normal, there is trace mitral regurgitation. Tricuspid Valve Tricuspid valve is grossly normal, there is trace tricuspid regurgitation, tricuspid regurgitation jet velocity is inadequate for calculation of the right ventricular systolic pressure. Pulmonic Valve Pulmonic valve is poorly visualized. Great Vessels Aortic root is normal size. Inferior vena cava is poorly visualized. Pericardium No significant pericardial effusion noted. Conclusion 1. Mild biatrial l enlargement, normal left ventricular size, mild concentric left ventricular hypertrophy, estimated ejection fraction 55% with no regional wall motion abnormality, diastolic parameters are inconclusive. 2. Trace mitral and tricuspid regurgitation. 3. No significant pericardial effusion noted. 4. Inferior vena cava is poorly visualized. Electronically signed by : Harry Montenegro MD 12/17/2021 18:23:11
== END ==
PROVIDERS: PCP Family Medicine; Visit Provider Physician Assistant
DX: R06.02 Shortness of breath (principal); I48.0 Paroxysmal atrial fibrillation
CPT/HCPCS: 93306

== ENCOUNTER 2022-06-08 08:52 | Emergency (ER) | payer MEDICARE, SELFPAY ==
[2022-06-08] VITALS (11 sets, daily range): BP systolic 92–119; BP diastolic 63–74; PULSE 84–105; RESP 13–24; TEMP 36.6–36.9; O2SAT 94–98; BMI 25.0
--- NOTE | 2022-06-08 08:52 | ECG_ITS ---
APPROVED REPORT Exam: Resting ECG HR:103 bpm ECG Measurements Heart Rate 103 AXES QRSd 92 QRS 81 QT 313 T -60 QTc 373 Conclusion ATRIAL FIBRILLATION WITH RAPID VENTRICULAR RESPONSE NONSPECIFIC ST & T-WAVE ABNORMALITY ABNORMAL ECG UNCONFIRMED REPORT Electronically signed by : Mainor Laboy MD 06/10/2022 19:25:19
--- NOTE | 2022-06-08 09:02 | PC.NURSE ---
er at bedside
--- NOTE | 2022-06-08 09:07 | XR_ITS ---
PROCEDURE INFORMATION: Exam: XR Chest Exam date and time: 06/08/2022 9:02 AM Age: 66 years old Clinical indication: Pain; Chest pressure; Additional info: Chest pain TECHNIQUE: Imaging protocol: Radiologic exam of the chest. Views: 2 views. COMPARISON: CR XR CHEST 2V 10/17/2020 7:38 AM FINDINGS: Lungs: Unremarkable. No consolidation. Pleural spaces: Unremarkable. No pleural effusion. No pneumothorax. Heart/Mediastinum: Unremarkable. No cardiomegaly. Bones/joints: Unremarkable. IMPRESSION: No acute findings.
--- NOTE | 2022-06-08 09:09 | HMH.EDCP ---
Discharge Plan Disposition Patient Disposition: Home, Self-Care Prescriptions Prescriptions: New furosemide [Lasix] 20 mg tablet 20 mg PO DAILY Qty: 3 0RF No Action metoprolol succinate 25 mg tablet extended release 24 hr 25 mg PO DAILY Qty: 30 5RF rivaroxaban 20 mg tablet 20 mg PO DAILY Qty: 30 5RF diltiazem HCl 180 mg capsule,extended release 24hr 180 mg PO DAILY Qty: 30 5RF atorvastatin 40 mg tablet 20 mg PO HS Clinical Impressions Clinical Impression: Chest pain Instructions Patient Instructions: DI for Chest Pain Discharge ED Provider: Pro Samson Chest Pain HPI General Chief Complaint: Chest Pain Stated Complaint: chest pain Time Seen by Provider: 06/08/22 09:00 Mode of Arrival: Ambulatory Source of Information: Patient Limitations: No Limitations Description of Symptoms (Recalled from ER Triage Doc. by RN): pt states he has had midsternal chest pressure for the last few days, also reports a headache for the last few days, states his heart rate and blood pressure has been all over the place as well History of Present Illness HPI narrative: Patient is a 66-year-old male with past medical history of hyperlipidemia, atrial fibrillation on anticoagulation, hypertension, CAD who presents with chest pressure. He says that 2 days ago he started to get right-sided chest pressure. It does not radiate from there. He denies any nausea or diaphoresis. He says that he has had some low-grade fevers at home and feels like he had a upper respiratory infection. He denies any sputum production. He denies any shortness of breath. He says he feels like he has heartburn but has taken Pepto-Bismol without any effect. PEDRO Score for Non-Stemi Age of Patient: 60-69 years old Heart Rate: 90-109 bpm Systolic Blood Pressure: 120-139 mmhg Serum Creatinine: 0.80-1.19 mg/dl CHF Killip Class: I-No CHF Other Risk Factors: None Non-Stemi Risk Score: 114 Risk Stratification: 109-140 = Intermediate Ri Related Data Home Medications Medication Instructions Recorded Confirmed atorvastatin 40 mg tablet 20 mg PO HS 03/27/21 12/04/21 Previous Rx's Medication Instructions Recorded diltiazem HCl 180 mg 180 mg PO DAILY ##30 10/24/20 capsule,extended release 24 hr metoprolol succinate 25 mg 25 mg PO DAILY #30 tabs 10/24/20 tablet,extended release 24 hr rivaroxaban 20 mg tablet 20 mg PO DAILY Blood thinner #30 10/24/20 tabs furosemide 20 mg tablet (Lasix) 20 mg PO DAILY #3 tabs 06/08/22 Allergies Allergy/AdvReac Type Severity Reaction Status Date / Time Penicillins Allergy Hives Verified 06/08/22 09:02 [facility] Disclaimer: The information contained in this section may have been updated after the patient was seen, as this information can be updated by other users. Medical History (Updated 06/08/22 @ 14:07 by Pro Samson MD) CAD (coronary artery disease) Family history of coronary artery disease Palpitations Social History Smoking Status: Never smoker second hand exposure: No alcohol intake: never substance use type: denies use current occupational status: employed Travel in the last 8 weeks: Inside the [place] household members: spouse housing: house current occupation: [employer] current occupational exposures/hazards: No caffeine: Yes ROS Obtained: Yes All systems reviewed & no additional complaints except as documented A 14 point review of system was obtained and otherwise negative except per HPI Physical Exam General General appearance: alert and in no apparent distress Head Head exam: atraumatic, normocephalic and normal inspection Eye Eye exam: Present normal appearance, PERRL and EOMI ENT ENT exam: Present normal exam, normal oropharynx, mucous membranes moist, TM's normal bilaterally and normal external ear exam Neck Neck exam: Present normal inspection, full ROM and trachea midline; Absent meningismus or ly
--- NOTE | 2022-06-08 09:10 | PC.NURSE ---
pt transported to radiology via wheelchair.
[2022-06-08 09:11] LABS: Basophils # 0.1 K/mm3 (0-0.2); Basophils % 1.4 % (0.1-2.0); Eosinophils # 0.3 K/mm3 (0.0-0.4); Hematocrit 45.6 % (42.0-52.0); Hemoglobin 15.2 g/dL (14.1-18.0); Lymphocytes # 0.8 K/mm3 (0.7-4.5); Lymphocytes % 8.9 % (10-50); Mean Corpuscular HGB Conc 33.3 g/dL (31.8-35.4); Mean Corpuscular Hemoglobin 32.8 pg (27.0-31.2); Mean Corpuscular Volume 98.4 fl (80-94); Mean Platelet Volume 7.8 fl (7.4-10.4); Monocytes # 0.5 K/mm3 (0.1-1.0); Monocytes % 5.3 % (1.7-9.3); Neutrophils % 81.4 % (37.0-80.0); Platelet Count 220 K/mm3 (142-424); Red Blood Count 4.63 M/mm3 (4.60-6.20); Red Cell Distribution Width 12.7 % (11.5-17.5); White Blood Count 8.5 K/mm3 (4.8-10.8)
--- NOTE | 2022-06-08 09:13 | PC.NURSE ---
pt returned from radiology via wheelchair.
[2022-06-08 09:14] LABS: Chloride 102 mmol/L (98-107)
[2022-06-08 09:15] LABS: Sodium 136 mmol/L (136-145)
[2022-06-08 09:17] LABS: Alanine Aminotransferase 34 U/L (12-78); Aspartate Amino Transferase 31 U/L (17-59); Bilirubin,Total 1.1 mg/dl (0.2-1.3); Blood Urea Nitrogen 11 mg/dl (9-20); Creatinine Clearance Estimated 87 mL/min (50-200); Estimated Glomerular Filt Rate 97 ml/min (>60); GFR (African American) 117 ML/MIN (>60); Potassium 3.8 mmoL/L (3.5-5.1)
[2022-06-08 09:18] LABS: Albumin/Globulin Ratio 1.3 (1.1-1.8); Alkaline Phosphatase 53 U/L (38-126); Anion Gap 12.8 mEq/L (5-15); Calcium 8.8 mg/dl (8.4-10.2); Carbon Dioxide 25 mmol/L (22.0-30.0); Globulin 3.2 g/dL (1.3-3.2); Glucose 205 mg/dl (74-100); Lipase 47 U/L (23-300); Total Protein,Serum 7.2 g/dl (6.3-8.2)
[2022-06-08 09:29] LABS: NT Pro Brain Natriuretic Pep. 1680 pg/mL (0-125)
[2022-06-08 09:32] LABS: Troponin I 0.04 ng/ml (0.00-0.034)
[2022-06-08 10:57] LABS: Coronavirus 19, PCR Not Detected (NotDetected); Influenza A, PCR Not Detected (NotDetected); Influenza B, PCR Not Detected (NotDetected)
[2022-06-08 12:52] LABS: Troponin I 0.04 ng/ml (0.00-0.034)
== END 2022-06-08 14:19 | disposition home or self-care (01) ==
PROVIDERS: Emergency Provider Student in an Organized Health Care Education/Training Program; PCP Family Medicine
DX: R07.89 Other chest pain (principal); I10 Essential (primary) hypertension; I25.10 Atherosclerotic heart disease of native coronary artery without angina pectoris; E78.5 Hyperlipidemia, unspecified; I48.91 Unspecified atrial fibrillation; Z79.01 Long term (current) use of anticoagulants; Z82.49 Family history of ischemic heart disease and other diseases of the circulatory system; Z20.822 Contact with and (suspected) exposure to COVID-19
CPT/HCPCS: 36415; 71046; 80053; 83690; 83880; 84484; 85025; 86140; 93005; 96374; 96375; 99285; C9803; U0003; U0005

== ENCOUNTER 2022-06-12 14:20 | Inpatient (IN) | payer MEDICARE, SELFPAY ==
--- NOTE | 2022-06-12 14:26 | XR_ITS ---
FINAL REPORT CLINICAL HISTORY: fever, bodyaches, cough COMPARISON: October 17, 2020 FINDINGS: A single portable view of the chest was obtained. The heart size and pulmonary vascularity are within normal limits. The mediastinum is within normal limits. There are mild left lung base opacities which may represent atelectasis or pneumonia. The bony thorax is intact. IMPRESSION: Mild left lung base atelectasis or pneumonia. Reviewed, Interpreted and Dictated by Eleazar Lowe III, MD Transcribed by Natalia Cleaning Authenticated and . [facility]
--- NOTE | 2022-06-12 14:36 | PC.NURSE ---
arrived to floor by wheelchair from front lobby direct admit
[2022-06-12 14:37] VITALS: BP 121/92; PULSE 84; RESP 22; TEMP 37.2; O2SAT 95; BMI 25.0
--- NOTE | 2022-06-12 14:37 | EXP.HP ---
History of Present Illness *Admission Date: 06/12/22 *Reason for visit:: afib *History of present illness: Patient is a 66-year-old male with past medical history of hyperlipidemia, atrial fibrillation on anticoagulation, hypertension, CAD who presents with chest pressure.? He says that 2 days ago he started to get right-sided chest pressure.? It does not radiate from there.? He denies any nausea or diaphoresis.? He says that he has had some low-grade fevers at home and feels like he had a upper respiratory infection.? He denies any sputum production.? He denies any shortness of breath.? He says he feels like he has heartburn but has taken Pepto-Bismol without any effect. Patient's chest pain work-up was negative for any signs of ACS but he did have an elevated BNP compared to previous levels.? I talked with him more and he does endorse a little bit of orthopnea so I recommended that we try a 3-day course of Lasix to see if this will help with his symptoms.? Patient is agreeable this plan.? Stable for discharge.? Return precautions given.? Recommended close follow-up with his PCP in cardiology on Friday. (above as per ER physician on 06/08/21) The patient saw Karen yesterday in the office of MARTY and was in afib with a controlled rate. His WBC was elevated and he was started on ceftin and told to keep his appt with cardiology. He was seen by cardiology today and had afib with RVR and hypotension. He was directly admitted from the cardiology office. The following is the note from cardiology: Here for routine follow up and reports went to ER over the weekend for chest pressure, ruled out, initial troponin elevated, second troponin same value, elevated BNP. He was in Afib RVR during er visit, and remains in RVR today. PCP placed him on antibx due to an increase in Neutrophils, elevated HR/low bp,this is concerning for sepsis. He reports fever of 102.3 highest on Friday, his complaint is headache, he describes his headache severe and reports he cant stand to touch his head, he does also report that he did experience hallucinations. reports he has experienced mental status changes over the last few days. Offered hospital admission, he is agreeable. [facility] Disclaimer: The information contained in this section may have been updated after the patient was seen, as this information can be updated by other users. Medical History (Updated 06/12/22 @ 17:45 by NIKI Ma) Afib CAD (coronary artery disease) Cardiomyopathy Chest pain Family history of coronary artery disease Fever Hallucination, visual Headache History of left heart catheterization History of seizures History of TIA (transient ischemic attack) HLD (hyperlipidemia) HTN (hypertension) Palpitations Surgical History History of colonoscopy History of hernia surgery Family History Coronary artery disease Cancer Social History (Updated 06/12/22 @ 17:19 by Garima Morgan RN) Smoking Status: Never smoker second hand exposure: No alcohol intake: never substance use type: denies use current occupational status: employed Travel in the last 8 weeks: [place] the [place] household members: spouse housing: house current occupation: [employer] current occupational exposures/hazards: No caffeine: Yes Review of Systems Constitutional Constitutional: Reports body ache(s), Reports chills, Reports fatigue, Reports fever(s), Reports headache(s) and Reports weakness Eyes Eyes: Denies blurry vision and Denies diplopia ENT Ears, Nose, Mouth, and Throat: Reports headache(s), Reports nasal congestion, Reports sore throat and Denies vertigo *Cardiovascular Cardiovascular: Reports chest pain, Reports dyspnea and Reports palpitations *Respiratory Respiratory: Reports cough and Reports dyspnea *Gastrointestinal Gastrointestinal: Denies abdomina
--- NOTE | 2022-06-12 14:39 | HMH.PHAINT1 ---
Pharmacy Intervention Comments: MEDICATION RECONCILIATION COMPLETED ON PATIENT USING EXTERNAL FILL HISTORY FROM PHARMACY. -PRATIK SALGADO, EARLENED
[2022-06-12 14:48] VITALS: PULSE 140
--- NOTE | 2022-06-12 14:54 | CA_ITS ---
APPROVED REPORT EXAM: Comprehensive 2D, Doppler, and color-flow Echocardiogram [employer]: Rosa Maria Moreno RT(R) Ht: 6 ft 0 in Wt: 184lbs BSA: 2.06 BP: 103/59 mmHg Indications: AFIB with RVR, RSV, HTN, palpitations, fatigue, HTN, hyperlipidemia, CAD, TIA, EF 45% on 2020 echo, 55% on 2021 echo. Scan was performed once heart rate dropped to 111 but during exam heart rate continued to fluctuate. 2D Dimensions LVOT 2.17 cm (M/F) 1.5-2.5 LA Volume 58.20 mL LA Volume Index 28.25 mL/m2 (M/F) 16-34 M-Mode Dimensions RVDd 2.25 cm (0.9-2.6) LA Diam 4.13 cm (1.9-4.0) LVDd 4.90 cm (3.5-5.7) Ao Diam 3.01 cm (2.0-3.7) LVDs 4.22 cm (3.5-5.7) IVSd 0.97 cm (0.6-1.1) PWd 0.93 cm (0.6-1.1) EF (Teich) 29.50% FS 13.90% EDV (Teich) 112.80 mL TAPSE 1.84 (<1.7) ESV (Teich) 79.50 mL Left Ventricle Left atrium is mildly enlarged, left ventricle is normal size mild concentric left ventricular hypertrophy, estimated ejection fraction 50% with no regional wall motion abnormality, diastolic parameters are inconclusive. Right Ventricle Right atrium and right ventricle are normal size and contractility. Aortic Valve Aortic valve is minimally thickened and fibrosed there is no aortic stenosis or aortic insufficiency. Mitral Valve Mitral valve grossly normal, there is mild mitral regurgitation. Tricuspid Valve Tricuspid valve grossly normal, there is mild tricuspid regurgitation, tricuspid regurgitation jet velocity is inadequate for calculation of the right ventricular systolic pressure. Pulmonic Valve Pulmonic valve is poorly visualized. Great Vessels Aortic root is normal size. Inferior vena cava is poorly visualized. Pericardium No significant pericardial effusion noted. Conclusion 1. Mildly enlarged left atrium, normal left ventricular size, estimated ejection fraction 50% with no regional wall motion abnormality, diastolic parameters are inconclusive. 2. Mild mitral and tricuspid regurgitation. 3. No significant pericardial effusion. 4. Inferior vena cava is poorly visualized. Electronically signed by : Harry Montenegro MD 06/12/2022 18:01:52
--- NOTE | 2022-06-12 15:17 | ECG_ITS ---
APPROVED REPORT Exam: Resting ECG HR:135 bpm ECG Measurements Heart Rate 135 AXES QRSd 91 QRS 73 QT 285 T 39 QTc 364 Conclusion ATRIAL FIBRILLATION WITH RAPID VENTRICULAR RESPONSE NONSPECIFIC T-WAVE ABNORMALITY ABNORMAL RHYTHM ECG UNCONFIRMED REPORT Electronically signed by : Mainor Laboy MD 06/12/2022 21:43:52
[2022-06-12 15:23] LABS: Basophils % 0.3 % (0.1-2.0); Eosinophils # 0.3 K/mm3 (0.0-0.4); Eosinophils % 3.6 % (0.1-12.0); Hematocrit 43.9 % (42.0-52.0); Hemoglobin 14.2 g/dL (14.1-18.0); Lymphocytes # 0.7 K/mm3 (0.7-4.5); Lymphocytes % 8.4 % (10-50); Mean Corpuscular HGB Conc 32.4 g/dL (31.8-35.4); Mean Corpuscular Hemoglobin 32.3 pg (27.0-31.2); Mean Corpuscular Volume 99.7 fl (80-94); Mean Platelet Volume 7.6 fl (7.4-10.4); Monocytes # 0.2 K/mm3 (0.1-1.0); Monocytes % 2.6 % (1.7-9.3); Neutrophils # 7.4 K/mm3 (1.8-7.8); Neutrophils % 85.2 % (37.0-80.0); Platelet Count 305 K/mm3 (142-424); Red Cell Distribution Width 12.6 % (11.5-17.5); White Blood Count 8.7 K/mm3 (4.8-10.8)
[2022-06-12 15:25] LABS: MANUAL DIFFERENTIAL MANUAL DIFFERENTIAL (MANUAL DIFF)
[2022-06-12 15:46] LABS: Alanine Aminotransferase 56 U/L (12-78); Albumin Level 3.7 g/dl (3.5-5.0); Albumin/Globulin Ratio 1.1 (1.1-1.8); Alkaline Phosphatase 74 U/L (38-126); Aspartate Amino Transferase 66 U/L (17-59); Bilirubin,Total 0.8 mg/dl (0.2-1.3); Blood Urea Nitrogen 14 mg/dl (9-20); Calcium 8.6 mg/dl (8.4-10.2); Carbon Dioxide 29 mmol/L (22.0-30.0); Chloride 97 mmol/L (98-107); Creatinine Clearance Estimated 86 mL/min (50-200); Estimated Glomerular Filt Rate 84 ml/min (>60); GFR (African American) 102 ML/MIN (>60); Globulin 3.5 g/dL (1.3-3.2); Glucose 111 mg/dl (74-100); Sodium 132 mmol/L (136-145); Total Protein,Serum 7.2 g/dl (6.3-8.2)
[2022-06-12 15:56] LABS: NT Pro Brain Natriuretic Pep. 4790 pg/mL (0-125)
[2022-06-12 16:00] VITALS: PULSE 130
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
[2022-06-12 16:20] LABS: Eosinophils % 2 % (0-3); Lymphocytes % 14 % (10-50); Neutrophils % 84 % (42-76); Platelet Estimate Normal; RBC Morphology Normal; Total Cells Counted 100
[2022-06-12 18:54] LABS: Mycoplasma Pneumo IGM (Rapid) Non-Reactive (Non-Reactiv)
[2022-06-12 19:14] LABS: Coronavirus 19, PCR Not Detected (NotDetected); Influenza A, PCR Not Detected (NotDetected); Influenza B, PCR Not Detected (NotDetected)
[2022-06-12 19:29] LABS: Lactic Acid 1.7 mmol/L (0.7-2.1)
[2022-06-12 20:00] VITALS: BP 120/68; PULSE 105; PULSE 90; RESP 16; TEMP 36.6; O2SAT 90; O2SAT 98
[2022-06-13] VITALS (15 sets, daily range): BP systolic 87–126; BP diastolic 47–67; PULSE 60–117; RESP 16–22; TEMP 36.6–37.7; O2SAT 94–99; BMI 24.9
--- NOTE | 2022-06-13 05:14 | PC.NURSE ---
Got a call that the patient's HR was in the 130 s and checked on the patient he was up moving around in the room. No other changes noted.
[2022-06-13 06:55] LABS: Anion Gap 8.7 mEq/L (5-15); Blood Urea Nitrogen 14 mg/dl (9-20); Calcium 7.9 mg/dl (8.4-10.2); Carbon Dioxide 27 mmol/L (22.0-30.0); Chloride 99 mmol/L (98-107); Creatinine Clearance Estimated 86 mL/min (50-200); Estimated Glomerular Filt Rate 84 ml/min (>60); GFR (African American) 102 ML/MIN (>60); Glucose 102 mg/dl (74-100); Potassium 3.7 mmoL/L (3.5-5.1); Sodium 131 mmol/L (136-145)
[2022-06-13 06:59] LABS: Basophils % 0.3 % (0.1-2.0); Eosinophils # 0.3 K/mm3 (0.0-0.4); Eosinophils % 2.9 % (0.1-12.0); Hematocrit 38.7 % (42.0-52.0); Lymphocytes # 0.8 K/mm3 (0.7-4.5); Lymphocytes % 9.3 % (10-50); Mean Corpuscular HGB Conc 32.1 g/dL (31.8-35.4); Mean Corpuscular Hemoglobin 31.9 pg (27.0-31.2); Mean Corpuscular Volume 99.4 fl (80-94); Mean Platelet Volume 7.5 fl (7.4-10.4); Monocytes # 0.3 K/mm3 (0.1-1.0); Monocytes % 3.8 % (1.7-9.3); Neutrophils % 83.6 % (37.0-80.0); Platelet Count 297 K/mm3 (142-424); Red Blood Count 3.89 M/mm3 (4.60-6.20); Red Cell Distribution Width 12.6 % (11.5-17.5); White Blood Count 8.4 K/mm3 (4.8-10.8)
[2022-06-13 07:16] LABS: Hemoglobin 12.4 g/dL (14.1-18.0)
--- NOTE | 2022-06-13 08:02 | EXP.CARD.PN ---
Subjective Subjective Date: 06/13/22 Time: 08:02 Principal diagnosis: Atrial fibrillation with a rapid ventricular response Interval history: 67-year-old white male in bed in no acute distress. Still with significant headache. Telemetry still shows atrial fibrillation with variable rate between 90 and 115 bpm. Patient did tolerate oral diltiazem overnight but unfortunately did not convert back to sinus rhythm. He did eat breakfast this morning. Discussed possible cardioversion this afternoon but will start IV amiodarone with a bolus and then a maintenance drip for 24 hours. Patient has been on Xarelto long-term and has not missed any tablets over the last 30 days. Exam Data for Last 24 hours Vital signs and Labs for Last 24 Hours: Temp Pulse Resp BP Pulse Ox 99.9 F H 107 H 18 126/54 L 99 06/13/22 04:38 06/13/22 04:38 06/13/22 04:38 06/13/22 04:38 06/13/22 04:38 Laboratory Results - last 24 hr 06/12/22 14:55: WBC 8.7, RBC 4.40 L, Hgb 14.2, Hct 43.9, MCV 99.7 H, MCH 32.3 H, MCHC 32.4, RDW 12.6, Plt Count 305, MPV 7.6, Neut % (Auto) 85.2 H, Lymph % (Auto) 8.4 L, [place] % (Auto) 2.6, Eos % (Auto) 3.6, Baso % (Auto) 0.3, Neut # (Auto) 7.4, Lymph # (Auto) 0.7, [place] # (Auto) 0.2, Eos # (Auto) 0.3, Baso # (Auto) 0.0, Total Counted 100, Neutrophils % (Manual) 84 H, Lymphocytes % (Manual) 14, Eosinophils % (Manual) 2, Platelet Estimate Normal, RBC Morphology Normal 06/12/22 14:55: Sodium 132 L, Potassium 4.0, Chloride 97 L, Carbon Dioxide 29, Anion Gap 10.0, BUN 14, Creatinine 0.90, Estimated Creat Clear 86, Estimated GFR 84, Est GFR ( Amer) 102, Glucose 111 H, Calcium 8.6, Total Bilirubin 0.8, AST 66 H, ALT 56, Alkaline Phosphatase 74, NT-Pro-B Natriuret Pep 4790 H, Total Protein 7.2, Albumin 3.7, Globulin 3.5 H, Albumin/Globulin Ratio 1.1 06/12/22 14:55: Mycoplasma pneumon IgM Non-reactive 06/12/22 14:55: SARS-CoV-2 (PCR) Not detected, Influenza A Untype (PCR) Not detected, Influenza Type B (PCR) Not detected 06/12/22 18:58: Lactate 1.7 06/13/22 05:50: WBC 8.4, RBC 3.89 L, Hgb 12.4 L D, Hct 38.7 L, MCV 99.4 H, MCH 31.9 H, MCHC 32.1, RDW 12.6, Plt Count 297, MPV 7.5, Neut % (Auto) 83.6 H, Lymph % (Auto) 9.3 L, [place] % (Auto) 3.8, Eos % (Auto) 2.9, Baso % (Auto) 0.3, Neut # (Auto) 7.0, Lymph # (Auto) 0.8, [place] # (Auto) 0.3, Eos # (Auto) 0.3, Baso # (Auto) 0.0 06/13/22 05:50: Sodium 131 L, Potassium 3.7, Chloride 99, Carbon Dioxide 27, Anion Gap 8.7, BUN 14, Creatinine 0.90, Estimated Creat Clear 86, Estimated GFR 84, Est GFR ( Amer) 102, Glucose 102 H, Calcium 7.9 L I & O for Last 24 hours: Intake & Output 06/10/22 06/11/22 06/12/22 06/13/22 11:59 11:59 11:59 11:59 Intake Total 480 / 480 Balance 480 / 480 Weight 184 lb 3.986 oz Constitutional Constitutional: no acute distress *Routine Respiratory Exam Respiratory: Present CTA bilaterally *Routine Cardiovascular Exam Cardiovascular: Present irregularly irregular Progress Note: A&P Assessment and plan (1) Atrial fibrillation with rapid ventricular response: Status: Acute (2) Fever: Status: Acute (3) Left lower lobe pneumonia: Status: Acute (4) Headache: Status: Acute (5) Hallucination, visual: Status: Acute (6) Chest pain: Status: Acute (7) History of seizures: Status: Acute (8) History of TIA (transient ischemic attack): Status: Chronic (9) HTN (hypertension): Status: Chronic (10) HLD (hyperlipidemia): Status: Chronic (11) Cardiomyopathy: Status: Chronic (12) CAD (coronary artery disease): Status: Chronic Assessment and Plan Assessment and Plan for All Diagnoses:: 1. Headache with fever and visual hallucinations, defer to Dr. Flor 2. Atrial fibrillation with rapid ventricular response -will hold metoprolol -continue oral diltiazem. -start IV amio with bolus and drip with consideration for cardioversion later today. NPO starting now. -continue Xarelto 3.
--- NOTE | 2022-06-13 08:25 | EXP.ACUTE.PN ---
Subjective *Date: 06/13/22 *Time: 08:44 Interval history: Patient states he is feeling a little short of breath this morning. His heart rate has slowed but he remains in A. fib. He denies any chest pain. He does complain of a headache and states he has not gotten anything for his headache. Medical Exam Vital signs and Labs for Last 24 Hours: Vital Signs Temp Pulse Pulse Resp BP Pulse Ox 06/13/22 08:00 98.1 F 90 18 97/59 L 96 06/13/22 07:51 71 18 06/13/22 07:51 71 06/13/22 07:51 85 06/13/22 07:51 94 L 06/13/22 04:00 100 H 06/13/22 04:38 99.9 F H 107 H 18 126/54 L 99 06/12/22 20:00 98 06/13/22 00:00 117 H 06/13/22 00:00 98.2 F 66 16 110/64 96 06/12/22 20:00 97.9 F 105 H 16 120/68 90 L 06/12/22 20:00 90 06/12/22 16:00 130 H 06/12/22 14:48 140 H 06/12/22 14:37 99.0 F 84 22 121/92 H 95 Intake and Output 06/12/22 06/13/22 06/13/22 19:59 03:59 11:59 Intake Total 480 / 480 Balance 480 / 480 Intake: Intake, Oral Amount 480 / 480 Other: Weight 184 lb 4 oz 184 lb 3.986 oz Patient Weight 06/13/22 11:59 Weight 184 lb 3.986 oz Laboratory Results - last 24 hr 06/12/22 14:55: WBC 8.7, RBC 4.40 L, Hgb 14.2, Hct 43.9, MCV 99.7 H, MCH 32.3 H, MCHC 32.4, RDW 12.6, Plt Count 305, MPV 7.6, Neut % (Auto) 85.2 H, Lymph % (Auto) 8.4 L, [place] % (Auto) 2.6, Eos % (Auto) 3.6, Baso % (Auto) 0.3, Neut # (Auto) 7.4, Lymph # (Auto) 0.7, [place] # (Auto) 0.2, Eos # (Auto) 0.3, Baso # (Auto) 0.0, Total Counted 100, Neutrophils % (Manual) 84 H, Lymphocytes % (Manual) 14, Eosinophils % (Manual) 2, Platelet Estimate Normal, RBC Morphology Normal 06/12/22 14:55: Sodium 132 L, Potassium 4.0, Chloride 97 L, Carbon Dioxide 29, Anion Gap 10.0, BUN 14, Creatinine 0.90, Estimated Creat Clear 86, Estimated GFR 84, Est GFR ( Amer) 102, Glucose 111 H, Calcium 8.6, Total Bilirubin 0.8, AST 66 H, ALT 56, Alkaline Phosphatase 74, NT-Pro-B Natriuret Pep 4790 H, Total Protein 7.2, Albumin 3.7, Globulin 3.5 H, Albumin/Globulin Ratio 1.1 06/12/22 14:55: Mycoplasma pneumon IgM Non-reactive 06/12/22 14:55: SARS-CoV-2 (PCR) Not detected, Influenza A Untype (PCR) Not detected, Influenza Type B (PCR) Not detected 06/12/22 18:58: Lactate 1.7 06/13/22 05:50: WBC 8.4, RBC 3.89 L, Hgb 12.4 L D, Hct 38.7 L, MCV 99.4 H, MCH 31.9 H, MCHC 32.1, RDW 12.6, Plt Count 297, MPV 7.5, Neut % (Auto) 83.6 H, Lymph % (Auto) 9.3 L, [place] % (Auto) 3.8, Eos % (Auto) 2.9, Baso % (Auto) 0.3, Neut # (Auto) 7.0, Lymph # (Auto) 0.8, [place] # (Auto) 0.3, Eos # (Auto) 0.3, Baso # (Auto) 0.0 06/13/22 05:50: Sodium 131 L, Potassium 3.7, Chloride 99, Carbon Dioxide 27, Anion Gap 8.7, BUN 14, Creatinine 0.90, Estimated Creat Clear 86, Estimated GFR 84, Est GFR ( Amer) 102, Glucose 102 H, Calcium 7.9 L I & O for Labs for Last 24 Hours: Intake & Output 01/09/23 01/10/23 01/11/23 01/12/23 11:59 11:59 11:59 11:59 Intake Total 480 / 480 Balance 480 / 480 Weight 184 lb 3.986 oz Constitutional: Present no acute distress Respiratory: Present decreased breath sounds Cardiac: Present Reg Rate and Rhythm Comment:: irregularly irregular GI: Present soft and normal bowel sounds; Absent distention or tenderness Extremities: Absent edema, clubbing or cyanosis Skin: Present intact Neuro: Present alert and awake Assessment and Plan *Assessment and plan (1) Atrial fibrillation with rapid ventricular response: Status: Acute Category: Medical Code(s): I48.91 - Unspecified atrial fibrillation (2) Fever: Status: Acute Category: Medical Code(s): R50.9 - Fever, unspecified (3) Left lower lobe pneumonia: Status: Acute Category: Medical Code(s): J18.9 - Pneumonia, unspecified organism (4) Headache: Status: Acute Category: Medical Code(s): R51.9 - Headache, unspecified (5) Hallucination, visual:
--- NOTE | 2022-06-13 10:46 | PC.NURSE ---
0840- Amiodarone bolus given and amiodarone drip started at 1mg/hr at this time, patient remains in afib with rate 110-130
--- NOTE | 2022-06-13 14:58 | EXP.CARDIOVE ---
[facility] Cardioversion Cardioversion Date: 06/13/22 Provider:: NIKI Dixon Procedure Performed:: Synchronized electrical cardioversion Diagnosis:: Symptomatic atrial fibrillation Procedure Summary:: After informed consent was obtained, patient was given a total of 3 mg of IV Versed along with 50 mg of IV fentanyl for sedation after which he received a single synchronized 200 J shock which converted him from atrial fibrillation to sinus rhythm. Patient tolerated the procedure without complications. Complications:: None Conculsion:: Successful electrical cardioversion to normal sinus rhythm.
--- NOTE | 2022-06-13 17:36 | ECG_ITS ---
APPROVED REPORT Exam: Resting ECG HR:80 bpm ECG Measurements Heart Rate 80 AXES QRSd 106 QRS 73 QT 406 T 32 QTc 442 Conclusion ATRIAL FIBRILLATION NONSPECIFIC T-WAVE ABNORMALITY ABNORMAL RHYTHM ECG UNCONFIRMED REPORT Electronically signed by : Mainor Laboy MD 06/14/2022 10:06:14
--- NOTE | 2022-06-13 17:44 | PC.NURSE ---
1723- Patient noted to be back in afib per telemetry with controlled rate, EKG obtained for verification and Dr Dumont notified at this time, given order to leave patient on amiodarone drip and they will reassess in the morning.
--- NOTE | 2022-06-13 21:30 | PC.NURSE ---
Spoke with Dr. Flor regarding pt scheduled PO amio and cardizem, Pt has been slightly hypotensive 90s/50s. Orders receivedf to give amio po and hold cardizem po tonight.
[2022-06-14] VITALS (13 sets, daily range): BP systolic 90–119; BP diastolic 48–72; PULSE 70–132; RESP 18–22; TEMP 36.6–37.9; O2SAT 90–100; BMI 24.9; BMI 25.0
--- NOTE | 2022-06-14 01:02 | ECG_ITS ---
APPROVED REPORT Exam: Resting ECG HR:88 bpm ECG Measurements Heart Rate 88 AXES AR 213 P 58 QRSd 103 QRS 70 QT 372 T 38 QTc 417 Conclusion SINUS RHYTHM WITH FIRST DEGREE AV BLOCK Unusual electrical appearing artifact noted ABNORMAL ECG UNCONFIRMED REPORT Electronically signed by : Mainor Laboy MD 06/14/2022 10:03:19
--- NOTE | 2022-06-14 01:35 | PC.NURSE ---
Pt noted to be NSR on tele. EKG obtained to confirm
--- NOTE | 2022-06-14 01:36 | PC.NURSE ---
Pt medicated PRN per JUL for headache and fever.
--- NOTE | 2022-06-14 02:56 | PC.NURSE ---
Pt back in a-fib at this time
--- NOTE | 2022-06-14 03:40 | PC.NURSE ---
Pts HR noted to be 150's on tele. EKG obtained at this time. Spoke with Dr. Flor, states to give 0500 scheduled dose of cardizem now
--- NOTE | 2022-06-14 05:14 | ECG_ITS ---
APPROVED REPORT Exam: Resting ECG HR:147 bpm ECG Measurements Heart Rate 147 AXES QRSd 99 QRS 78 QT 286 T -52 QTc 370 Conclusion ATRIAL FLUTTER/TACHYCARDIA WITH RAPID VENTRICULAR RESPONSE MODERATE T-WAVE ABNORMALITY, CONSIDER INFERIOR ISCHEMIA [-0.1+ mV T-WAVE IN II/aVF] ABNORMAL ECG UNCONFIRMED REPORT Electronically signed by : Mainor Laboy MD 06/14/2022 18:36:33
--- NOTE | 2022-06-14 05:14 | PC.NURSE ---
Pt HR maintaining about 150. Dr Flor Notified. Orders received to give 60 mg PO once now
--- NOTE | 2022-06-14 08:15 | EXP.ACUTE.PN ---
Subjective *Date: 06/14/22 *Time: 08:19 Interval history: Patient states he does not feel well this morning. He states cardiology did a cardioversion yesterday, but his heart did not remain in sinus rhythm. He had rates in the 150s this morning. Medical Exam Vital signs and Labs for Last 24 Hours: Vital Signs Temp Pulse Pulse Resp BP Pulse Ox 06/14/22 04:00 90 06/14/22 06:00 111 H 22 90/67 L 95 06/14/22 04:00 97 H 20 102/72 L 93 L 06/14/22 02:00 86 20 103/57 L 93 L 06/14/22 00:00 100.3 F H 89 22 95/48 L 92 L 06/13/22 22:00 82 22 106/60 L 95 06/14/22 00:00 70 06/13/22 20:00 100 H 06/13/22 20:00 98.0 F 82 20 103/67 L 94 L 06/13/22 12:00 92 H 06/13/22 18:00 88 16 93/63 L 97 06/13/22 16:00 60 06/13/22 17:00 72 18 98/65 L 96 06/13/22 16:00 97.8 F 06/13/22 16:00 60 16 108/47 L 98 06/13/22 14:00 75 18 87/57 L 98 06/13/22 12:00 98.8 F 06/13/22 12:00 96 H 17 95/59 L 96 06/13/22 11:00 113 H 18 109/59 L 95 06/13/22 10:00 101 H 18 120/52 L 97 06/13/22 09:00 113 H 16 95/64 L 97 Intake and Output 06/13/22 06/14/22 06/14/22 19:59 03:59 11:59 Intake Total 1197 / 1397 200 / 1397 Output Total 1350 / 1350 0 / 1350 0 / 1350 Balance -153 / 47 0 / 47 200 / 47 Intake: Intake, Oral Amount 840 / 840 Intake, Total IV Amount 357 / 557 200 / 557 Amiodarone HCl 150 mg In 100 / 100 Dextrose 5 % in Water 100 ml @ 618 mls/hr IV ONCE ONE Rx#: [id number] Amiodarone HCl 900 mg In 257 / 457 200 / 457 Dextrose 5 % in Water 500 ml @ 33.3 mls/hr IV .[id number] [facility] Rx# :[id number] Output: Output, Urine Amount 1350 / 1350 0 / 1350 0 / 1350 Other: Number of Unmeasured Voids 1 1 1 Weight 183 lb 12.402 oz Patient Weight 06/14/22 11:59 Weight 183 lb 12.402 oz I & O for Labs for Last 24 Hours: Intake & Output 06/11/22 06/12/22 06/13/22 06/14/22 11:59 11:59 11:59 11:59 Intake Total 840 / 840 1397 / 1397 Output Total 1350 / 1350 Balance 840 / 840 47 / 47 Weight 184 lb 3.986 oz 183 lb 12.402 oz Constitutional: Present no acute distress Respiratory: Present decreased breath sounds Comment:: irregularly irregular GI: Present soft and normal bowel sounds; Absent distention or tenderness Extremities: Absent edema, clubbing or cyanosis Skin: Present intact Neuro: Present alert and awake Assessment and Plan *Assessment and plan (1) Atrial fibrillation with rapid ventricular response: Status: Acute Category: Medical Code(s): I48.91 - Unspecified atrial fibrillation (2) Fever: Status: Acute Category: Medical Code(s): R50.9 - Fever, unspecified (3) Left lower lobe pneumonia: Status: Acute Category: Medical Code(s): J18.9 - Pneumonia, unspecified organism (4) Headache: Status: Acute Category: Medical Code(s): R51.9 - Headache, unspecified (5) Hallucination, visual: Status: Acute Category: Medical Code(s): R44.1 - Visual hallucinations (6) Chest pain: Status: Acute Category: Medical Code(s): R07.9 - Chest pain, unspecified (7) History of seizures: Status: Acute Category: Medical Code(s): Z87.898 - Personal history of other specified conditions (8) History of TIA (transient ischemic attack): Status: Chronic Category: Medical Code(s): Z86.73 - Personal history of transient ischemic attack (TIA), and cerebral infarction without residual deficits (9) HTN (hypertension): Status: Chronic Qualifiers: Hypertension type: essential hypertension Qualified Code(s): I10 - Essential (primary) hypertension Category: Medical Code(s): I10 - Essential (primary) hypertension (10) HLD (hyperlipidemia): Status: Chronic Qualifiers
--- NOTE | 2022-06-14 09:01 | EXP.CARD.PN ---
Subjective Subjective Date: 06/14/22 Time: 08:00 Principal diagnosis: Atrial fibrillation with a rapid ventricular response, pneumonia Interval history: 67-year-old white male in bed eating breakfast in no acute distress. Still with fatigue. Nursing relates reversion back to atrial fibrillation yesterday evening with brief return of sinus rhythm overnight. Patient continues to be in A. fib with a ventricular rate in the 110 to 130 bpm range this morning. He denies any chest pain, pressure or tightness. Elevated temperature noted this morning 100.3. Amiodarone IV should be completed around 9:00. Patient has been started on oral amiodarone yesterday. He continues on Xarelto chronically. Exam Data for Last 24 hours Vital signs and Labs for Last 24 Hours: Temp Pulse Resp BP Pulse Ox 100.3 F H 111 H 22 90/67 L 95 06/14/22 00:00 06/14/22 06:00 06/14/22 06:00 06/14/22 06:00 06/14/22 06:00 I & O for Last 24 hours: Intake & Output 06/11/22 06/12/22 06/13/22 06/14/22 11:59 11:59 11:59 11:59 Intake Total 840 / 840 1397 / 1397 Output Total 1350 / 1350 Balance 840 / 840 47 / 47 Weight 184 lb 3.986 oz 183 lb 12.402 oz Constitutional Constitutional: no acute distress *Routine Respiratory Exam Respiratory: Present CTA bilaterally and diminished air movement *Routine Cardiovascular Exam Cardiovascular: Present tachycardia and irregularly irregular Progress Note: A&P Assessment and plan (1) Atrial fibrillation with rapid ventricular response: Status: Acute (2) Fever: Status: Acute (3) Left lower lobe pneumonia: Status: Acute (4) Headache: Status: Acute (5) Hallucination, visual: Status: Acute (6) Chest pain: Status: Acute (7) History of seizures: Status: Acute (8) History of TIA (transient ischemic attack): Status: Chronic (9) HTN (hypertension): Status: Chronic (10) HLD (hyperlipidemia): Status: Chronic (11) Cardiomyopathy: Status: Chronic (12) CAD (coronary artery disease): Status: Chronic Assessment and Plan Assessment and Plan for All Diagnoses:: 1. Headache with fever, pneumonia and visual hallucinations, defer to Dr. Flor -CT of chest without contrast to evaluate pulmonary disease/pneumonia 2. Atrial fibrillation with rapid ventricular response, recurrent after cardioversion to NSR yesterday, likely due to pneumonia -stop diltiazem -use bisoprolol for rate control -increase amiodarone to 400 mg BID -continue Xarelto -Will likely need repeat cardioversion when pneumonia treatment completed 3. History of cardiomyopathy related to A. fib that resolved with medical therapy. -Echo this admit shows EF 50% with no WMA or significant valve disease 4. Mild CAD by cath, 09/2020
--- NOTE | 2022-06-14 09:12 | CT_ITS ---
FINAL REPORT TECHNIQUE: Axial images were obtained from the lung apex to the mid abdomen by computed tomography. Coronal reformatted images were obtained. This study was performed with techniques to keep radiation doses as low as reasonably achievable, (ALARA). Individualized dose reduction techniques using automated exposure control or adjustment of mA and/or kV according to the patient''s size were employed. CLINICAL HISTORY: Pneumonia FINDINGS: There is no axillary adenopathy. There is no hilar or mediastinal adenopathy. Heart size is normal. There is no pericardial effusion. There are small pleural effusions. Limited images of the upper abdomen are unremarkable. No suspicious infiltrate or nodule is identified. There are several calcified granulomas. There are bibasilar opacities favoring atelectasis over pneumonia. IMPRESSION: Bibasilar pulmonary opacities favoring atelectasis over pneumonia. Small pleural effusions. Reviewed, Interpreted and Dictated by Eleazar Lowe III, MD Transcribed by Natalia Cleaning Authenticated and [facility]
--- NOTE | 2022-06-14 11:54 | PC.NURSE ---
1140 notified jovita coughlin face to face that pt is back in nsr in the 70's no new orders
[2022-06-15] VITALS (9 sets, daily range): BP systolic 111–132; BP diastolic 65–77; PULSE 76–85; RESP 12–20; TEMP 36.7–37.1; O2SAT 94–98; BMI 24.4
--- NOTE | 2022-06-15 10:28 | EXP.ACUTE.PN ---
Subjective *Date: 06/15/22 *Time: 10:28 Interval history: Patient feels much better today, converted to sinus rhythm yesterday. Medical Exam Vital signs and Labs for Last 24 Hours: Vital Signs Temp Pulse Pulse Resp BP Pulse Ox 06/15/22 09:13 98.0 F 06/15/22 07:07 78 06/15/22 07:07 81 06/15/22 07:07 98 06/15/22 06:00 79 12 132/77 98 06/15/22 04:00 79 06/15/22 04:00 98.5 F 06/15/22 00:00 76 06/15/22 02:00 77 14 113/67 94 L 06/14/22 22:00 79 18 114/70 92 L 06/15/22 00:00 76 20 111/65 94 L 06/14/22 20:00 80 20 115/71 97 06/15/22 01:14 97 06/14/22 20:00 96 06/14/22 21:00 79 06/15/22 00:00 98.8 F 06/14/22 20:00 97.8 F 06/14/22 16:00 80 06/14/22 16:00 82 100 06/14/22 18:00 81 20 110/69 100 06/14/22 16:00 98.0 F 06/14/22 12:00 70 06/14/22 13:51 110 H 06/14/22 12:00 75 20 119/71 97 Intake and Output 06/14/22 06/15/22 06/15/22 23:59 07:59 15:59 Intake Total 240 / 1280 240 / 240 Output Total 0 / 0 Balance 240 / 1280 0 / 240 240 / 240 Intake: Intake, Oral Amount 240 / 1080 240 / 240 Output: Output, Urine Amount 0 / 0 Other: Number of Unmeasured Voids 1 Weight 180 lb 5 oz Patient Weight 06/15/22 23:59 Weight 180 lb 5 oz I & O for Labs for Last 24 Hours: Intake & Output 06/12/22 06/13/22 06/14/22 06/15/22 23:59 23:59 23:59 23:59 Intake Total 480 / 480 1557 / 1557 1280 / 1280 240 / 240 Output Total 1350 / 1350 0 / 0 0 / 0 Balance 480 / 480 207 / 207 1280 / 1280 240 / 240 Weight 184 lb 4 oz 184 lb 3.986 oz 185 lb 3.013 oz 180 lb 5 oz Microbiology Reports for the Last 24 Hours: Microbiology 06/12/22 14:55 Blood Blood Culture - Preliminary NO GROWTH AFTER 48 HOURS 06/12/22 14:55 Blood Blood Culture - Preliminary NO GROWTH AFTER 48 HOURS Constitutional: Present no acute distress Respiratory: Present normal respiratory effort Cardiac: Present Reg Rate and Rhythm GI: Present normal bowel sounds; Absent tenderness Extremities: Present normal inspection and full ROM Skin: Present intact; Absent erythema Neuro: Present Grossly Intact and moves all extremities Assessment and Plan *Assessment and plan (1) Atrial fibrillation with rapid ventricular response: Status: Acute Category: Medical Code(s): I48.91 - Unspecified atrial fibrillation (2) Fever: Status: Acute Category: Medical Code(s): R50.9 - Fever, unspecified (3) Left lower lobe pneumonia: Status: Acute Category: Medical Code(s): J18.9 - Pneumonia, unspecified organism (4) Headache: Status: Acute Category: Medical Code(s): R51.9 - Headache, unspecified (5) Hallucination, visual: Status: Acute Category: Medical Code(s): R44.1 - Visual hallucinations (6) Chest pain: Status: Acute Category: Medical Code(s): R07.9 - Chest pain, unspecified (7) History of seizures: Status: Acute Category: Medical Code(s): Z87.898 - Personal history of other specified conditions (8) History of TIA (transient ischemic attack): Status: Chronic Category: Medical Code(s): Z86.73 - Personal history of transient ischemic attack (TIA), and cerebral infarction without residual deficits (9) HTN (hypertension): Status: Chronic Qualifiers: Hypertension type: essential hypertension Qualified Code(s): I10 - Essential (primary) hypertension Category: Medical Code(s): I10 - Essential (primary) hypertension (10) HLD (hyperlipidemia): Status: Chronic Qualifiers: Hyperlipidemia type: mixed hyperlipidemia Qualified Code(s): E78.2 - Mixed hyperlipidemia Category: Medical Code(s): E78.5 - Hyperlipidemia
--- NOTE | 2022-06-15 11:44 | HMH.PHAINT1 ---
Pharmacy Intervention Comments: DISCHARGE MEDICATION COUNSELING PROVIDED. DISCUSSED STOPPING THE METOPROLOL AND STARTING BISOPROLOL (DIZZINESS, LIGHTHEADEDNESS, SHORTNESS OF BREATH, LOW BP, SLOWED HEART RATE POSSIBLE). START AMIODARONE (TWICE DAILY, WITH OR WITHOUT FOOD BUT BE CONSISTENT WITH THAT, SLOWED HEART RATE, LOW BP, N/V/D POSSIBLE). PATIENT AND VERBALIZED NO QUESTIONS AT THIS TIME.
--- NOTE | 2022-06-17 13:25 | CARE MANAGER ---
Spoke with patient related to hospital discharge. He states he is aware of Medication changes and has already scheduled his follow up appointments. Denies questions or concerns. MECHE Westfall
--- NOTE | 2022-06-17 22:00 | EXP.DC.SUM ---
General Admission date:: 06/12/22 Discharge date: 06/15/22 HPI HPI HPI: Patient is a 66-year-old male with past medical history of hyperlipidemia, atrial fibrillation on anticoagulation, hypertension, CAD who presents with chest pressure.? He says that 2 days ago he started to get right-sided chest pressure.? It does not radiate from there.? He denies any nausea or diaphoresis.? He says that he has had some low-grade fevers at home and feels like he had a upper respiratory infection.? He denies any sputum production.? He denies any shortness of breath.? He says he feels like he has heartburn but has taken Pepto-Bismol without any effect. Patient's chest pain work-up was negative for any signs of ACS but he did have an elevated BNP compared to previous levels.? I talked with him more and he does endorse a little bit of orthopnea so I recommended that we try a 3-day course of Lasix to see if this will help with his symptoms.? Patient is agreeable this plan.? Stable for discharge.? Return precautions given.? Recommended close follow-up with his PCP in cardiology on Friday. (above as per ER physician on 06/08/21) The patient saw Karen yesterday in the office of [facility] and was in afib with a controlled rate. His WBC was elevated and he was started on ceftin and told to keep his appt with cardiology. He was seen by cardiology today and had afib with RVR and hypotension. He was directly admitted from the cardiology office. The following is the note from cardiology: Here for routine follow up and reports went to ER over the weekend for chest pressure, ruled out, initial troponin elevated, second troponin same value, elevated BNP. He was in Afib RVR during er visit, and remains in RVR today. PCP placed him on antibx due to an increase in Neutrophils, elevated HR/low bp,this is concerning for sepsis. He reports fever of 102.3 highest on Friday, his complaint is headache, he describes his headache severe and reports he cant stand to touch his head, he does also report that he did experience hallucinations. reports he has experienced mental status changes over the last few days. Offered hospital admission, he is agreeable. Hospital Course Hospital Course Hospital Course: The patient's chest x-ray showed mild left lung base atelectasis versus pneumonia. Cardiology had started the patient on his outpatient oral antibiotics, but these were switched to IV antibiotics due to findings on his chest x-ray. Cardiology wanted to hold his metoprolol and start diltiazem 60 mg every 8 hours and use IV diltiazem if needed for rate control. Once his rate was controlled, they wanted to repeat his echocardiogram. The patient continued to complain of a headache and telemetry continued to show atrial for with a rate in the 120s to 130s. He was started on IV amiodarone with a bolus and was continued on his Xarelto. His echo showed an EF of 50% with no significant valvular disease. He remained in A. fib despite the amiodarone drip and an increase in oral diltiazem. It was decided to proceed with cardioversion. The shock did convert him to normal sinus rhythm and cardiology wanted to continue the IV amiodarone for 24 hours and then start oral amiodarone and decrease his diltiazem dose. The patient went back into A. fib with RVR after his cardioversion. Cardiology ordered a CT of the chest without contrast to evaluate pulmonary disease/pneumonia. They stopped his diltiazem and used bisoprolol for rate control. His amiodarone dose was increased to 400 mg twice daily. It was felt a repeat cardioversion would be necessary when his pneumonia treatment was completed. His chest CT showed bibasilar opacities favoring atelectasis over pneumonia and a small pleural effusion. The patient did convert back to normal sinus rhythm with a rate in the 70s and felt much better. Cardiology felt he could be discharged home on atorvastatin 20 mg daily, Xarelto 20 mg daily, amiodarone 400 mg twi
== END 2022-06-15 11:25 | disposition home or self-care (01) | DRG 308 ==
PROVIDERS: Nurse Practitioner; Admitting Provider Family Medicine; PCP Family Medicine; Visit Provider Family Medicine
DX: I48.91 Unspecified atrial fibrillation (principal); J18.9 Pneumonia, unspecified organism; R44.1 Visual hallucinations; I42.9 Cardiomyopathy, unspecified; Z79.01 Long term (current) use of anticoagulants; I10 Essential (primary) hypertension; I25.10 Atherosclerotic heart disease of native coronary artery without angina pectoris; Z86.73 Personal history of transient ischemic attack (TIA), and cerebral infarction without residual deficits; E78.2 Mixed hyperlipidemia
CPT/HCPCS: 36415; 71045; 71250; 80048; 80053; 83605; 83880; 85007; 85025; 86738; 87040; 92960; 93005; 93306; 94640; C9803; J0282; J0456; J1335; J7060; U0003; U0005

== ENCOUNTER → 2022-07-01 17:15 | Outpatient (CLI) | payer MEDICARE, SELFPAY ==
--- NOTE | 2022-07-01 17:23 | XR_ITS ---
PROCEDURE INFORMATION: Exam: XR Chest Exam date and time: 07/01/2022 5:17 PM Age: 67 years old Clinical indication: Condition or disease; Other: Pneumonia; Additional info: Pneumonia of left lower lobe due to infectious organism, SOA, feels heaviness in chest when lying down, was hospitalized and on antibiotics 2 wks ago for pneumonia TECHNIQUE: Imaging protocol: Radiologic exam of the chest. Views: 2 views. COMPARISON: CT CHEST WO CON 06/14/2022 10:19 AM FINDINGS: Lungs: Stable small calcified granulomas are noted in the right lung. No active pulmonary infiltrate seen. Pleural spaces: No pneumothorax or pleural effusion. Heart/Mediastinum: Unremarkable. No cardiomegaly. Bones/joints: Moderate multilevel osteophyte formation noted in the spine. Bones are otherwise unremarkable. IMPRESSION: No active disease
== END ==
PROVIDERS: PCP Family Medicine; Visit Provider Family Medicine
DX: J18.9 Pneumonia, unspecified organism (principal)
CPT/HCPCS: 71046

== ENCOUNTER → 2022-07-27 09:46 | Outpatient (CLI) | payer MEDICARE, SELFPAY ==
[2022-07-27 11:36] LABS: Basophils % 0.8 % (0.1-2.0); Eosinophils # 0.1 K/mm3 (0.0-0.4); Eosinophils % 2.6 % (0.1-12.0); Hematocrit 46.7 % (42.0-52.0); Hemoglobin 15.1 g/dL (14.1-18.0); Lymphocytes # 1.4 K/mm3 (0.7-4.5); Lymphocytes % 25.3 % (10-50); Mean Corpuscular HGB Conc 32.3 g/dL (31.8-35.4); Mean Corpuscular Hemoglobin 32.1 pg (27.0-31.2); Mean Corpuscular Volume 99.2 fl (80-94); Mean Platelet Volume 7.6 fl (7.4-10.4); Monocytes # 0.4 K/mm3 (0.1-1.0); Monocytes % 7.7 % (1.7-9.3); Neutrophils # 3.4 K/mm3 (1.8-7.8); Neutrophils % 63.7 % (37.0-80.0); Platelet Count 263 K/mm3 (142-424); Red Cell Distribution Width 13.3 % (11.5-17.5); White Blood Count 5.4 K/mm3 (4.8-10.8)
[2022-07-27 11:47] LABS: Chloride 105 mmol/L (98-107); Sodium 140 mmol/L (136-145)
[2022-07-27 11:50] LABS: Alanine Aminotransferase 22 U/L (12-78); Alkaline Phosphatase 55 U/L (38-126); Aspartate Amino Transferase 24 U/L (17-59); Bilirubin,Direct 0.2 mg/dl (0.0-0.4); Bilirubin,Indirect 0.4 mg/dL (0.0-0.9); Bilirubin,Total 0.6 mg/dl (0.2-1.3); Bilirubin,Unconjugated 0.4 mg/dL (0.0-1.1); Blood Urea Nitrogen 12 mg/dl (9-20); Carbon Dioxide 31 mmol/L (22.0-30.0); Cholesterol 168 mg/dl (140-200); Estimated Glomerular Filt Rate 84 ml/min (>60); GFR (African American) 102 ML/MIN (>60); Triglycerides 179 mg/dl (30-150); VLDL Cholesterol 36 mg/dL (0-40)
[2022-07-27 11:51] LABS: Albumin Level 4.2 g/dl (3.5-5.0); Calcium 8.6 mg/dl (8.4-10.2); Chol/HDL Ratio 3.4 (1-3.5); Glucose 78 mg/dl (74-100); HDL Cholesterol 50 mg/dl (40-60); Magnesium 2.1 mg/dl (1.6-2.3); Total Protein,Serum 6.9 g/dl (6.3-8.2)
[2022-07-27 12:03] LABS: Direct LDL Cholesterol 96.51 mg/dL (100-129)
[2022-07-27 12:08] LABS: Free T4 (Free Thyroxine) 1.02 ng/dl (0.78-2.19)
[2022-07-27 12:21] LABS: Thyroid Stimulating Hormone 2.65 uIU/mL (0.465-4.68)
== END ==
PROVIDERS: PCP Family Medicine; Visit Provider Physician Assistant
DX: E78.2 Mixed hyperlipidemia (principal); I10 Essential (primary) hypertension; I25.10 Atherosclerotic heart disease of native coronary artery without angina pectoris; I42.8 Other cardiomyopathies
CPT/HCPCS: 36415; 80048; 80061; 80076; 83735; 84439; 84443; 85025

== ENCOUNTER → 2022-08-07 15:07 | Outpatient (CLI) | payer MEDICARE, SELFPAY | PROVIDERS: PCP Family Medicine; Visit Provider Physician Assistant | DX: G47.33 Obstructive sleep apnea (adult) (pediatric) (principal); R06.83 Snoring; R40.0 Somnolence | CPT/HCPCS: G0399 ==

== ENCOUNTER → 2022-12-02 11:57 | Outpatient (CLI) | payer MEDICARE, SELFPAY ==
[2022-12-02 13:01] LABS: Alanine Aminotransferase 24 U/L (12-78); Albumin Level 4.1 g/dl (3.5-5.0); Alkaline Phosphatase 77 U/L (38-126); Aspartate Amino Transferase 25 U/L (17-59); Bilirubin,Indirect 0.5 mg/dL (0.0-0.9); Bilirubin,Total 0.5 mg/dl (0.2-1.3); Bilirubin,Unconjugated 0.6 mg/dL (0.0-1.1); Chol/HDL Ratio 3.1 (1-3.5); Cholesterol 165 mg/dl (140-200); HDL Cholesterol 54 mg/dl (40-60); Total Protein,Serum 6.9 g/dl (6.3-8.2); Triglycerides 223 mg/dl (30-150); VLDL Cholesterol 45 mg/dL (0-40)
[2022-12-02 13:13] LABS: Direct LDL Cholesterol 85.54 mg/dL (100-129)
[2022-12-02 13:22] LABS: Free Thyroxine Index 2.7 ug/dL (5.93-13.13); T4 (Thyroxine) 7.5 ug/dl (5.53-11.0); Triiodothryronine (T3) Uptake 36 % (23.5-40.5)
[2022-12-02 13:35] LABS: Ferritin 150 ng/ml (17.9-464)
[2022-12-02 13:35] LABS: Thyroid Stimulating Hormone 2.79 uIU/mL (0.465-4.68)
== END ==
PROVIDERS: Nurse Practitioner Family; PCP Family Medicine; Visit Provider Physician Assistant
DX: E83.10 Disorder of iron metabolism, unspecified (principal); G25.81 Restless legs syndrome; E78.2 Mixed hyperlipidemia; I10 Essential (primary) hypertension; I25.10 Atherosclerotic heart disease of native coronary artery without angina pectoris; E78.5 Hyperlipidemia, unspecified; I42.8 Other cardiomyopathies; I48.0 Paroxysmal atrial fibrillation; R00.1 Bradycardia, unspecified; R40.0 Somnolence
CPT/HCPCS: 36415; 80061; 80076; 82728; 84436; 84443; 84479

== ENCOUNTER 2023-05-28 04:59 | Emergency (ER) | payer MEDICARE, SELFPAY ==
--- NOTE | 2023-05-28 05:01 | ECG_ITS ---
APPROVED REPORT Exam: Resting ECG HR:56 bpm ECG Measurements Heart Rate 56 AXES [place] 210 P 58 QRSd 94 QRS 56 QT 428 T 48 QTc 418 Conclusion SINUS BRADYCARDIA WITH FIRST DEGREE AV BLOCK POSSIBLE LEFT ATRIAL ENLARGEMENT [-0.1mV P-WAVE IN V1/V2] ABNORMAL ECG UNCONFIRMED REPORT Electronically signed by : Mainor Laboy MD 05/28/2023 09:00:01
[2023-05-28 05:07] VITALS: BP 183/95; PULSE 57; RESP 18; TEMP 36.3; O2SAT 96; BMI 25.0
--- NOTE | 2023-05-28 05:09 | ED_ITS ---
Discharge Plan Disposition Patient Disposition: Home, Self-Care Prescriptions Prescriptions: No Action bisoprolol fumarate 5 mg tablet 5 mg PO DAILY Qty: 30 5RF atorvastatin 40 mg tablet 20 mg PO HS triamcinolone acetonide [Nasacort Allergy] 55 mcg aerosol,spray 2 spray intranasal DAILY PRN (Reason: allergies) Rx Instructions: administer into each nostril amiodarone 200 mg tablet 200 mg PO DAILY Qty: 90 3RF rivaroxaban 20 mg tablet 20 mg PO QPMWITHMEAL Referrals Follow up/Referrals: Mahendra Flor MD [Primary Care Provider] - See instructions Activity Restrictions/Add. Instructions Additional Instructions/Restrictions: Please follow-up with your primary care provider and your accounts receivable associate. Please return to the emergency department if you develop any new or worsening symptoms or become concerned for your health. Clinical Impressions Clinical Impression: HTN (hypertension) Qualifiers: Hypertension type: unspecified Qualified Code(s): I10 - Essential (primary) hypertension Headache Qualifiers: Headache type: unspecified Headache chronicity pattern: acute headache Intractability: not intractable Qualified Code(s): R51.9 - Headache, unspecified Discharge ED Provider: Joshua Malave General Adult HPI <Joshua Malave MD - Last Filed: 05/28/23 06:43> General Chief complaint: Chest Pain Stated complaint: Chest pain Time Seen by Provider: 05/28/23 05:00 History of Present Illness HPI narrative: 67-year-old male, history of sleep apnea, attention, hyperlipidemia, paroxysmal atrial fibrillation on Xarelto amiodarone and bisoprolol presents with feeling of pulsation and concern for hypertension. Reports he has a mild headache. He reports that he can sometimes feel when his blood pressure gets high because his whole body pulses. He denies any specific chest pain or shortness of breath. He reports eating a lot of rich and salty foods over [place]. denies any lower extremity edema. His bisoprolol was cut in half from 10 to 5mg back in November, otherwise he has had no recent changes in medications. Related Data Home Medications Medication Instructions Recorded Confirmed rivaroxaban 20 mg tablet 20 mg PO QPMWITHMEAL AFIB 06/12/22 05/28/23 atorvastatin 40 mg tablet 20 mg PO HS Cholesterol 11/25/22 05/28/23 triamcinolone acetonide 55 mcg 2 spray intranasal DAILY PRN 11/25/22 05/28/23 nasal spray aerosol (Nasacort allergies Allergy) Previous Rx's Medication Instructions Recorded amiodarone 200 mg tablet 200 mg PO DAILY #90 tabs 08/02/22 bisoprolol fumarate 5 mg tablet 5 mg PO DAILY #30 tabs 12/02/22 Allergies Allergy/AdvReac Type Severity Reaction Status Date / Time Penicillins Allergy Hives Verified 12/02/22 11:24 PFS <Joshua Malave MD - Last Filed: 05/28/23 06:43> [facility] Disclaimer: The information contained in this section may have been updated after the patient was seen, as this information can be updated by other users. Medical History Afib Alcohol use BRBPR (bright red blood per rectum) CAD (coronary artery disease) Cardiomyopathy Chest pain Colitis Diverticulosis Family history of coronary artery disease Fever Hallucination, visual Headache History of left heart catheterization History of seizures History of TIA (transient ischemic attack) HLD (hyperlipidemia) HTN (hypertension) Palpitations Vasovagal episode Surgical History History of colonoscopy History of hernia surgery Family History Other Cancer Coronary artery disease Social History Smoking Status: Never smoker second hand exposure: No alcohol intake: current substance use type: denies use current occupational status: employed Travel in the last 8 weeks: None household members: spouse housing: house marital status: current occupation: [employer] current occupational exposures/hazards: No caffeine: Yes <Joshua Malave MD - Last Filed: 05/28/23 06:43> ROS Obtained: Yes All systems reviewed & no additional complaints except as documented Physical Exam <Joshua Malave MD - Last Filed: 05/28/23 06:43> General General appearance: alert and in no apparent distress Head Head exam: atraumatic and normocephalic Eye Eye exam: Present normal appearance, PERRL and EOMI ENT ENT exam: Present normal oropharynx and normal external ear exam Neck Neck exam: Present normal inspection and full ROM Chest Chest inspection: Present normal inspection and symmetric chest wall rise; Absent tenderness Respiratory Respiratory exam: Present normal lung sounds bilaterally; Absent respiratory distress Cardiovascular Cardiovascular exam: Present regular rate and normal rhythm Abdominal Exam Abdominal exam: Present soft; Absent distention, tenderness or guarding Extremities Exam Extremities exam: Present normal inspection; Absent edema or joint swelling Back Exam Back exam: Present normal inspection; Absent tenderness Neurological Exam Neurological exam: Present alert and oriented X3; Absent motor sensory deficit Psychiatric Psychiatric exam: Present normal affect and normal mood Skin Skin exam: Present warm, dry and normal color Lymphatic Lymphatic Findings: no adenopathy Medical Decision Making <Joshua Malave MD - Last Filed: 05/28/23 06:43> Medical Records Medical records reviewed: Yes I reviewed the patient's medical records. Chun Inquiry Pt receiving controlled substance: No Chun was queried for this patient: No Vital Signs: 05/28/23 05:07 05/28/23 05:11 05/28/23 05:30 Temperature 97.4 F L Temperature Source Oral Pulse Rate 56 L 54 L Pulse Rate [Left Radial] 57 L Respiratory Rate 18 12 Blood Pressure 134/83 Blood Pressure [Right Arm] 183/95 H Blood Pressure Mean 106 Blood Pressure Mean [Right Arm] 124 02 Sat by Pulse Oximetry 96 96 Oxygen Delivery Method Room Air Room Air 05/28/23 06:00 05/28/23 06:30 Temperature Temperature Source Pulse Rate 51 L 57 L Pulse Rate [Left Radial] Respiratory Rate 12 13 Blood Pressure 136/79 143/82 H Blood Pressure [Right Arm] Blood Pressure Mean 107 102 Blood Pressure Mean [Right Arm] 02 Sat by Pulse Oximetry 96 97 Oxygen Delivery Method Room Air Room Air Lab Data Lab results reviewed: Yes I reviewed the patient's lab results. Lab Results 05/28/23 05:10: WBC 6.0, RBC 4.85, Hgb 16.0, Hct 46.3, MCV 95.4 H, MCH 32.9 H, MCHC 34.5, RDW 13.1, Plt Count 175, MPV 7.7, Neut % (Auto) 60.6, Lymph % (Auto) 26.5, [place] % (Auto) 8.6, Eos % (Auto) 3.8, Baso % (Auto) 0.4, Neut # (Auto) 3.7, Lymph # (Auto) 1.6, [place] # (Auto) 0.5, Eos # (Auto) 0.2, Baso # (Auto) 0.0, Sodium 136, Potassium 3.9, Chloride 105, Carbon Dioxide 28, Anion Gap 6.9, BUN 13, Creatinine 0.80, Estimated Creat Clear 86, Estimated GFR 97, Est GFR ( Amer) 117, Glucose 107 H, Calcium 8.8, Total Bilirubin 0.6, AST 34, ALT 41, Alkaline Phosphatase 60, Troponin I < 0.01, Total Protein 7.7, Albumin 4.3, Globulin 3.4 H, Albumin/Globulin Ratio 1.3 05/28/23 06:11: Urine Color Yellow, Urine Appearance Clear, Urine pH 7.5, Ur Specific [place] 1.020, Urine Protein Negative, Urine Glucose (UA) Negative, Urine Ketones Negative, Urine Blood Negative, Urine Nitrate Negative, Urine Bilirubin Negative, Urine Urobilinogen 0.2, Ur Leukocyte Esterase Negative, Urine RBC 3-5, Urine WBC 3-5, Ur Squamous Epith Cells Occasional, Urine Bacteria Trace 05/28/23 08:00: Troponin I < 0.01 05/28/23 05:10 05/28/23 05:10 Orders (Tests/Meds): ED MEDICATIONS Discontinued Medications Generic Name Dose Route Start Last Admin Trade Name Ashok PRN Reason Stop Dose Admin Acetaminophen 1,000 mg 05/28/23 05:07 05/28/23 05:16 Acetaminophen 500mg Tab PO 05/28/23 05:08 1,000 mg ONCE ONE Administration Ketorolac Tromethamine 30 mg 05/28/23 05:07 05/28/23 05:17 Ketorolac 30mg/Ml Vial IV 05/28/23 05:08 30 mg ONCE ONE Administration ORDERS Category Date Time Status CBC w/Auto Diff [Complete Blood Count Auto Diff] Stat Lab 05/28/23 05:10 Completed CMP [Comprehensive Metabolic Panel] Stat Lab 05/28/23 05:10 Completed Troponin I Q3H Lab 05/28/23 05:10 Completed Troponin I Q3H Lab 05/28/23 08:00 Completed UA [Urinalysis and Microscopic] Stat Lab 05/28/23 06:11 Completed ECG initial [place] Routine Y 05/28/23 05:01 Completed ECG Data Tracing #1: I reviewed this ECG and interpreted as documented below: Sinus bradycardia with first-degree AV block, rate of 56, no ST elevations. ECG initial impression date: 05/28/23 ECG initial impression time: 05:52 HEART Score History (anamnesis): Slightly suspicious ECG: Normal Age: >65 years Risk factors: 3 or more risk factors Troponin: </= normal limit HEART Score: 4 Medical Decision Narrative: 67-year-old male with history of obstructive sleep apnea, coronary artery disease, atrial fibrillation status post cardioversion earlier this year, currently on bisoprolol and Xarelto and amiodarone presents with sensation of full body pulsation, mild headache and is concerned that his blood pressure is too high. History was obtained via conversation with patient, family, chart review. On arrival, patient is afebrile, mildly hypertensive with systolics in the 180s, generally well-appearing without specific concern, moving all extremities spontaneously. Full physical exam performed and significant for no physical exam abnormalities. Differential includes but is not limited to asymptomatic hypertension, hypertensive urgency, hypertensive emergency, ACS, migraine headache, tension headache. Patient was given p.o. Tylenol, IV Toradol for symptomatic management and correction of underlying abnormalities. Workup initiated including CBC CMP troponin UA ekg to assess for changes associated with hypertensive urgency. Patient placed on nuclear monitoring technician. On re-evaluation, patient remains hemodynamically stable. Blood pressure spontaneously improved to systolics of 130s without intervention. On my interpretation of nuclear monitoring technician patient remains in sinus bradycardia with rate in the 50s. Laboratory workup independently interpreted by me and significant for initial negative troponin, renal function at baseline. Patient was placed in observation status at 5:15 AM for continued cardiac monitoring and serial troponins to prevent potentially unnecessary admission. At this time care was handed off to oncoming physician pending repeat troponin and reassessment. <Scar French MD - Last Filed: 05/28/23 08:45> Vital Signs: 05/28/23 05:07 05/28/23 05:11 05/28/23 05:30 Temperature 97.4 F L Temperature Source Oral Pulse Rate 56 L 54 L Pulse Rate [Left Radial] 57 L Respiratory Rate 18 12 Blood Pressure 134/83 Blood Pressure [Right Arm] 183/95 H Blood Pressure Mean 106 Blood Pressure Mean [Right Arm] 124 02 Sat by Pulse Oximetry 96 96 Oxygen Delivery Method Room Air Room Air 05/28/23 06:00 05/28/23 06:30 Temperature Temperature Source Pulse Rate 51 L 57 L Pulse Rate [Left Radial] Respiratory Rate 12 13 Blood Pressure 136/79 143/82 H Blood Pressure [Right Arm] Blood Pressure Mean 107 102 Blood Pressure Mean [Right Arm] 02 Sat by Pulse Oximetry 96 97 Oxygen Delivery Method Room Air Room Air Lab Data Lab Results 05/28/23 05:10: WBC 6.0, RBC 4.85, Hgb 16.0, Hct 46.3, MCV 95.4 H, MCH 32.9 H, MCHC 34.5, RDW 13.1, Plt Count 175, MPV 7.7, Neut % (Auto) 60.6, Lymph % (Auto) 26.5, [place] % (Auto) 8.6, Eos % (Auto) 3.8, Baso % (Auto) 0.4, Neut # (Auto) 3.7, Lymph # (Auto) 1.6, [place] # (Auto) 0.5, Eos # (Auto) 0.2, Baso # (Auto) 0.0, Sodium 136, Potassium 3.9, Chloride 105, Carbon Dioxide 28, Anion Gap 6.9, BUN 13, Creatinine 0.80, Estimated Creat Clear 86, Estimated GFR 97, Est GFR ( Amer) 117, Glucose 107 H, Calcium 8.8, Total Bilirubin 0.6, AST 34, ALT 41, Alkaline Phosphatase 60, Troponin I < 0.01, Total Protein 7.7, Albumin 4.3, Globulin 3.4 H, Albumin/Globulin Ratio 1.3 05/28/23 06:11: Urine Color Yellow, Urine Appearance Clear, Urine pH 7.5, Ur Specific [place] 1.020, Urine Protein Negative, Urine Glucose (UA) Negative, Urine Ketones Negative, Urine Blood Negative, Urine Nitrate Negative, Urine Bilirubin Negative, Urine Urobilinogen 0.2, Ur Leukocyte Esterase Negative, Urine RBC 3-5, Urine WBC 3-5, Ur Squamous Epith Cells Occasional, Urine Bacteria Trace 05/28/23 08:00: Troponin I < 0.01 Orders (Tests/Meds): ED MEDICATIONS Discontinued Medications Generic Name Dose Route Start Last Admin Trade Name Freq PRN Reason Stop Dose Admin Acetaminophen 1,000 mg 05/28/23 05:07 05/28/23 05:16 Acetaminophen 500mg Tab PO 05/28/23 05:08 1,000 mg ONCE ONE Administration Ketorolac Tromethamine 30 mg 05/28/23 05:07 05/28/23 05:17 Ketorolac 30mg/Ml Vial IV 05/28/23 05:08 30 mg ONCE ONE Administration ORDERS Category Date Time Status CBC w/Auto Diff [Complete Blood Count Auto Diff] Stat Lab 05/28/23 05:10 Completed CMP [Comprehensive Metabolic Panel] Stat Lab 05/28/23 05:10 Completed Troponin I Q3H Lab 05/28/23 05:10 Completed Troponin I Q3H Lab 05/28/23 08:00 Completed UA [Urinalysis and Microscopic] Stat Lab 05/28/23 06:11 Completed ECG initial [place] Routine Y 05/28/23 05:01 Completed HEART Score HEART Score: 4 Medical Decision Narrative: 67-year-old male with history of obstructive sleep apnea, coronary artery disease, atrial fibrillation status post cardioversion earlier this year, currently on bisoprolol and Xarelto and amiodarone presents with sensation of full body pulsation, mild headache and is concerned that his blood pressure is too high. History was obtained via conversation with patient, family, chart review. On arrival, patient is afebrile, mildly hypertensive with systolics in the 180s, generally well-appearing without specific concern, moving all extremities spontaneously. Full physical exam performed and significant for no physical exam abnormalities. Differential includes but is not limited to asymptomatic hypertension, hypertens frank urgency, hypertensive emergency, ACS, migraine headache, tension headache. Patient was given p.o. Tylenol, IV Toradol for symptomatic management and correction of underlying abnormalities. Workup initiated including CBC CMP troponin UA ekg to assess for changes associated with hypertensive urgency. Patient placed on nuclear monitoring technician. On re-evaluation, patient remains hemodynamically stable. Blood pressure spontaneously improved to systolics of 130s without intervention. On my interpretation of nuclear monitoring technician patient remains in sinus bradycardia with rate in the 50s. Laboratory workup independently interpreted by me and significant for initial negative troponin, renal function at baseline. Patient was placed in observation status at 5:15 AM for continued cardiac monitoring and serial troponins to prevent potentially unnecessary admission. At this time care was handed off to oncoming physician pending repeat troponin and reassessment. Scar French: Upon assumption of care patient was hemodynamically stable. Workup reviewed by me and is nonactionable. Upon repeat evaluation patient is well-appearing, serial troponins are below detectable limit. Given this patient is appropriate for outpatient management at this time. Procedures <Joshua Malave MD - Last Filed: 05/28/23 06:43> Risk/Benefits of Procedure(s) Were Explained: Yes Critical Care <Joshua Malave MD - Last Filed: 05/28/23 06:43> Critical Care Time Critical Care Time: No
[2023-05-28 05:11] VITALS: PULSE 56
[2023-05-28 05:16] LABS: Basophils % 0.4 % (0.1-2.0); Eosinophils # 0.2 K/mm3 (0.0-0.4); Eosinophils % 3.8 % (0.1-12.0); Hematocrit 46.3 % (42.0-52.0); Lymphocytes # 1.6 K/mm3 (0.7-4.5); Lymphocytes % 26.5 % (10-50); Mean Corpuscular HGB Conc 34.5 g/dL (31.8-35.4); Mean Corpuscular Hemoglobin 32.9 pg (27.0-31.2); Mean Corpuscular Volume 95.4 fl (80-94); Mean Platelet Volume 7.7 fl (7.4-10.4); Monocytes # 0.5 K/mm3 (0.1-1.0); Monocytes % 8.6 % (1.7-9.3); Neutrophils # 3.7 K/mm3 (1.8-7.8); Neutrophils % 60.6 % (37.0-80.0); Platelet Count 175 K/mm3 (142-424); Red Blood Count 4.85 M/mm3 (4.60-6.20); Red Cell Distribution Width 13.1 % (11.5-17.5)
[2023-05-28] MEDS: ACETAMINOPHEN 500MG TAB 1000 MG PO (05:16)
[2023-05-28] MEDS: KETOROLAC 30MG/ML VIAL 30 MG IV (05:17)
[2023-05-28 05:26] LABS: Alanine Aminotransferase 41 U/L (12-78); Albumin Level 4.3 g/dl (3.5-5.0); Albumin/Globulin Ratio 1.3 (1.1-1.8); Alkaline Phosphatase 60 U/L (38-126); Anion Gap 6.9 mEq/L (5-15); Aspartate Amino Transferase 34 U/L (17-59); Bilirubin,Total 0.6 mg/dl (0.2-1.3); Blood Urea Nitrogen 13 mg/dl (9-20); Calcium 8.8 mg/dl (8.4-10.2); Carbon Dioxide 28 mmol/L (22.0-30.0); Chloride 105 mmol/L (98-107); Creatinine Clearance Estimated 86 mL/min (50-200); Estimated Glomerular Filt Rate 97 ml/min (>60); GFR (African American) 117 ML/MIN (>60); Globulin 3.4 g/dL (1.3-3.2); Glucose 107 mg/dl (74-100); Potassium 3.9 mmoL/L (3.5-5.1); Sodium 136 mmol/L (136-145); Total Protein,Serum 7.7 g/dl (6.3-8.2)
[2023-05-28 05:30] VITALS: BP 134/83; PULSE 54; RESP 12; O2SAT 96
[2023-05-28 05:43] LABS: Troponin I < 0.01 ng/ml (0.00-0.034)
[2023-05-28 06:00] VITALS: BP 136/79; PULSE 51; RESP 12; O2SAT 96
[2023-05-28 06:30] VITALS: BP 143/82; PULSE 57; RESP 13; O2SAT 97
[2023-05-28 07:00] LABS: Microscopic, Urine URINE MICROSCOPIC (MICROSCOPIC)
[2023-05-28 07:06] LABS: Appearance,Urine CLEAR (Clear); Bilirubin,Urine Negative (Negative); Blood, Urine Negative (Negative); Color,Urine YELLOW (Yellow); Glucose,Urine (UA) Negative (Negative); Ketones,Urine Negative (Negative); Leukocyte Esterase,Urine Negative (Negative); Nitrate,Urine Negative (Negative); PH,Urine 7.5 (5.0-8.5); Protein,Urine Negative (Negative); Urobilinogen,Urine 0.2 EU/dl (0.2)
[2023-05-28 07:22] LABS: Bacteria,Urine Trace /lpf; Squamous Epithelial Cell,Urine Occasional #/hpf (0-5)
[2023-05-28 08:38] LABS: Troponin I < 0.01 ng/ml (0.00-0.034)
[2023-05-28 08:54] VITALS: BP 131/86; PULSE 60; RESP 16; TEMP 36.3; O2SAT 99
== END 2023-05-28 08:55 | disposition home or self-care (01) ==
PROVIDERS: Emergency Provider Emergency Medicine; PCP Family Medicine
DX: R07.9 Chest pain, unspecified (principal); R51.9 Headache, unspecified; I10 Essential (primary) hypertension; I48.0 Paroxysmal atrial fibrillation; E78.5 Hyperlipidemia, unspecified; G47.30 Sleep apnea, unspecified; I25.10 Atherosclerotic heart disease of native coronary artery without angina pectoris; I42.9 Cardiomyopathy, unspecified; Z86.73 Personal history of transient ischemic attack (TIA), and cerebral infarction without residual deficits; I44.0 Atrioventricular block, first degree; R00.1 Bradycardia, unspecified
CPT/HCPCS: 80053; 81001; 84484; 85025; 93005; 96374; 99285

== ENCOUNTER 2023-06-07 09:14 | Outpatient (CLI) | payer MEDICARE, SELFPAY ==
[2023-06-07 09:26] LABS: Basophils % 0.5 % (0.1-2.0); Eosinophils # 0.2 K/mm3 (0.0-0.4); Eosinophils % 3.9 % (0.1-12.0); Hematocrit 45.8 % (42.0-52.0); Hemoglobin 16.2 g/dL (14.1-18.0); Lymphocytes # 1.4 K/mm3 (0.7-4.5); Lymphocytes % 26.2 % (10-50); Mean Corpuscular HGB Conc 35.3 g/dL (31.8-35.4); Mean Corpuscular Hemoglobin 34.1 pg (27.0-31.2); Mean Corpuscular Volume 96.4 fl (80-94); Mean Platelet Volume 6.7 fl (7.4-10.4); Monocytes # 0.5 K/mm3 (0.1-1.0); Monocytes % 8.6 % (1.7-9.3); Neutrophils # 3.2 K/mm3 (1.8-7.8); Neutrophils % 60.8 % (37.0-80.0); Platelet Count 196 K/mm3 (142-424); Red Blood Count 4.76 M/mm3 (4.60-6.20); Red Cell Distribution Width 12.7 % (11.5-17.5); White Blood Count 5.2 K/mm3 (4.8-10.8)
[2023-06-07 10:33] LABS: Chloride 104 mmol/L (98-107); Potassium 4.7 mmoL/L (3.5-5.1); Sodium 140 mmol/L (136-145)
[2023-06-07 10:36] LABS: Alanine Aminotransferase 33 U/L (12-78); Albumin Level 4.2 g/dl (3.5-5.0); Alkaline Phosphatase 55 U/L (38-126); Anion Gap 11.7 mEq/L (5-15); Aspartate Amino Transferase 30 U/L (17-59); Bilirubin,Indirect 0.8 mg/dL (0.0-0.9); Bilirubin,Total 0.8 mg/dl (0.2-1.3); Bilirubin,Unconjugated 0.9 mg/dL (0.0-1.1); Blood Urea Nitrogen 16 mg/dl (9-20); Calcium 9.2 mg/dl (8.4-10.2); Carbon Dioxide 29 mmol/L (22.0-30.0); Estimated Glomerular Filt Rate 75 ml/min (>60); GFR (African American) 90 ML/MIN (>60); Glucose 87 mg/dl (74-100)
== END 2023-06-07 23:59 ==
LOC: LAB 09:15
PROVIDERS: PCP Family Medicine; Visit Provider Nurse Practitioner
DX: I48.0 Paroxysmal atrial fibrillation (principal); I50.32 Chronic diastolic (congestive) heart failure; I10 Essential (primary) hypertension; Z79.899 Other long term (current) drug therapy
CPT/HCPCS: 36415; 80048; 80076; 85025

== ENCOUNTER 2023-10-18 08:07 | Outpatient (CLI) | payer MEDICARE, SELFPAY ==
[2023-10-18 10:22] LABS: Creatinine,Urine Random 75 mg/dL (Not Estab.)
[2023-10-18 10:30] LABS: Microalbumin < 6.000 mg/L (0-16.7)
[2023-10-18 10:58] LABS: Alanine Aminotransferase 29 U/L (12-78); Albumin Level 4.5 g/dl (3.5-5.0); Albumin/Globulin Ratio 1.5 (1.1-1.8); Alkaline Phosphatase 62 U/L (38-126); Anion Gap 12.1 mEq/L (5-15); Aspartate Amino Transferase 29 U/L (17-59); Blood Urea Nitrogen 12 mg/dl (9-20); Calcium 9.8 mg/dl (8.4-10.2); Carbon Dioxide 29 mmol/L (22.0-30.0); Chloride 101 mmol/L (98-107); Chol/HDL Ratio 2.7 (1-3.5); Cholesterol 218 mg/dl (140-200); Estimated Glomerular Filt Rate 84 ml/min (>60); GFR (African American) 102 ML/MIN (>60); Glucose 105 mg/dl (74-100); HDL Cholesterol 80 mg/dl (40-60); Potassium 5.1 mmoL/L (3.5-5.1); Sodium 137 mmol/L (136-145); Total Protein,Serum 7.5 g/dl (6.3-8.2); Triglycerides 102 mg/dl (30-150); Uric Acid 5.3 mg/dl (3.5-8.5); VLDL Cholesterol 20 mg/dL (0-40)
[2023-10-18 11:09] LABS: Direct LDL Cholesterol 114.63 mg/dL (100-129)
[2023-10-18 11:28] LABS: Prostate Specific Ag Screen 3.5 ng/ml (0.0-4.0); Thyroid Stimulating Hormone 2.95 uIU/mL (0.465-4.68)
== END 2023-10-18 23:59 | disposition home or self-care (01) ==
PROVIDERS: PCP Family Medicine; Visit Provider Family Medicine
DX: I10 Essential (primary) hypertension (principal); Z12.5 Encounter for screening for malignant neoplasm of prostate; E78.00 Pure hypercholesterolemia, unspecified
CPT/HCPCS: 36415; 80053; 80061; 82043; 82570; 84443; 84550; G0103

== ENCOUNTER 2023-12-17 15:22 | Outpatient (CLI) | payer MEDICARE, SELFPAY ==
--- NOTE | 2023-12-17 15:33 | XR_ITS ---
FINAL REPORT CLINICAL HISTORY: amio therapy COMPARISON: 07/01/2022 FINDINGS: 2 views of the chest were obtained . The heart is normal in size. The mediastinum is within normal limits. There is a background of emphysema and evidence of prior granulomatous disease. The lungs are otherwise clear. There is no pneumothorax. Osseous structures are unremarkable. IMPRESSION: No acute cardiopulmonary process. Reviewed, Interpreted and Dictated by Leila Polanco MD Transcribed by Andie Wilkins Authenticated and [facility]
[2023-12-17 15:44] LABS: Basophils % 0.7 % (0.1-2.0); Eosinophils # 0.1 K/mm3 (0.0-0.4); Eosinophils % 1.6 % (0.1-12.0); Hematocrit 41.7 % (42.0-52.0); Hemoglobin 14.3 g/dL (14.1-18.0); Lymphocytes # 1.8 K/mm3 (0.7-4.5); Lymphocytes % 26.7 % (10-50); Mean Corpuscular HGB Conc 34.4 g/dL (31.8-35.4); Mean Corpuscular Hemoglobin 34.4 pg (27.0-31.2); Mean Corpuscular Volume 100.1 fl (80-94); Mean Platelet Volume 7.5 fl (7.4-10.4); Monocytes # 0.5 K/mm3 (0.1-1.0); Monocytes % 7.2 % (1.7-9.3); Neutrophils # 4.4 K/mm3 (1.8-7.8); Platelet Count 181 K/mm3 (142-424); Red Blood Count 4.16 M/mm3 (4.60-6.20); Red Cell Distribution Width 13.8 % (11.5-17.5); White Blood Count 6.9 K/mm3 (4.8-10.8)
[2023-12-17 16:23] LABS: Alanine Aminotransferase 32 U/L (12-78); Albumin Level 4.2 g/dl (3.5-5.0); Alkaline Phosphatase 52 U/L (38-126); Aspartate Amino Transferase 30 U/L (17-59); Bilirubin,Indirect 0.8 mg/dL (0.0-0.9); Bilirubin,Total 0.8 mg/dl (0.2-1.3); Bilirubin,Unconjugated 0.9 mg/dL (0.0-1.1); Blood Urea Nitrogen 15 mg/dl (9-20); Calcium 9.5 mg/dl (8.4-10.2); Carbon Dioxide 25 mmol/L (22.0-30.0); Chloride 106 mmol/L (98-107); Chol/HDL Ratio 3.1 (1-3.5); Cholesterol 190 mg/dl (140-200); Estimated Glomerular Filt Rate 84 ml/min (>60); GFR (African American) 102 ML/MIN (>60); Glucose 95 mg/dl (74-100); HDL Cholesterol 62 mg/dl (40-60); Magnesium 2.1 mg/dl (1.6-2.3); Sodium 138 mmol/L (136-145); Triglycerides 104 mg/dl (30-150); VLDL Cholesterol 21 mg/dL (0-40)
[2023-12-17 16:34] LABS: Direct LDL Cholesterol 97.87 mg/dL (100-129)
[2023-12-17 16:40] LABS: Free T4 (Free Thyroxine) 0.98 ng/dl (0.78-2.19)
== END 2023-12-17 23:59 | disposition home or self-care (01) ==
LOC: LAB 15:23
PROVIDERS: PCP Family Medicine; Visit Provider Nurse Practitioner
DX: R06.00 Dyspnea, unspecified (principal); I10 Essential (primary) hypertension; I50.32 Chronic diastolic (congestive) heart failure; I48.0 Paroxysmal atrial fibrillation; E78.2 Mixed hyperlipidemia; I25.10 Atherosclerotic heart disease of native coronary artery without angina pectoris; Z86.79 Personal history of other diseases of the circulatory system; I11.9 Hypertensive heart disease without heart failure; K21.9 Gastro-esophageal reflux disease without esophagitis
CPT/HCPCS: 36415; 71046; 80048; 80061; 80076; 83735; 84439; 84443; 85025

== ENCOUNTER 2024-05-12 09:46 | Outpatient (CLI) | payer OTHER, SELFPAY ==
--- NOTE | 2024-05-12 09:50 | XR_ITS ---
FINAL REPORT CLINICAL HISTORY: Left hand and wrist pain, motor fell on hand last week COMPARISON: None FINDINGS: LEFT HAND: 3 views of the left hand were obtained. There is a small lucency in the head of the third metacarpal worrisome for a small nondisplaced fracture. Visualized joint spaces are normally aligned. There is a 2 mm foreign body radial to the second metacarpophalangeal joint. There is dorsal hand soft tissue swelling. IMPRESSION: Findings worrisome for a small nondisplaced fracture in the head of the third metacarpal. Foreign body second metacarpophalangeal joint. Dorsal hand soft tissue swelling. Reviewed, Interpreted and Dictated by Eleazar Lowe III, MD Transcribed by Tracy Anne Authenticated and [facility]
--- NOTE | 2024-05-12 09:50 | XR_ITS ---
FINAL REPORT CLINICAL HISTORY: Left wrist and hand pain, motor fell on hand last week COMPARISON: None FINDINGS: LEFT WRIST Three views demonstrate no acute fracture or dislocation. Mild degenerative changes are noted. There is dorsal hand soft tissue swelling. IMPRESSION: Degenerative changes without acute bony abnormality. Soft tissue swelling dorsal hand. Reviewed, Interpreted and Dictated by Eleazar Lowe III, MD Transcribed by Tracy Anne Authenticated and [facility]
== END 2024-05-12 23:59 | disposition home or self-care (01) ==
LOC: RAD 09:48
PROVIDERS: PCP Family Medicine; Visit Provider Physician Assistant
DX: M79.642 Pain in left hand (principal)
CPT/HCPCS: 73110; 73130

== ENCOUNTER 2024-05-14 10:20 | Outpatient (CLI) | payer OTHER, SELFPAY ==
--- NOTE | 2024-05-14 10:27 | MR_ITS ---
FINAL REPORT CLINICAL HISTORY: left wrist pain. motor crushed hand. swelling and pain around 2-4th metacarpals. FINDINGS: Multiplanar MR imaging of the left wrist was performed without contrast. Motion artifact is identified on many of the images. The bony structures are intact without evidence of fracture, bone bruise or marrow edema. There are cysts in several carpal bones. There is a partial tear of the scapholunate ligament. There is also a tear at the radial aspect of the triangular fibrocartilage. There is extensor tenosynovitis. There is dorsal wrist soft tissue edema or hemorrhage. IMPRESSION: Partial tear of the scapholunate ligament. Tear the radial aspect of the triangular fibrocartilage. Extensor tenosynovitis. Reviewed, Interpreted and Dictated by Eleazar Lowe III, MD Transcribed by Karen Jarvis Authenticated and [facility][1]
--- NOTE | 2024-05-14 10:27 | MR_ITS ---
FINAL REPORT CLINICAL HISTORY: Left Hand/ Wrist Pain. motor crushed hand. swelling and pain around 2-4th metacarpals. FINDINGS: Multiplanar MR imaging of the left hand was performed without contrast. There is magnetic susceptibility artifact radial to the second metacarpal head worrisome for foreign body. This obscures some detail in this region. The bony structures are intact without evidence of fracture or bone marrow edema. No bony mass is identified. The flexor and extensor tendons are intact. The musculature is intact. No soft tissue mass or cyst is identified. IMPRESSION: Findings worrisome for foreign body radial to the second metacarpal head. Reviewed, Interpreted and Dictated by Eleazar Lowe III, MD Transcribed by Karen Jarvis Authenticated and [facility]
== END 2024-05-14 23:59 | disposition home or self-care (01) ==
LOC: RAD 10:22
PROVIDERS: PCP Family Medicine; Visit Provider Physician Assistant
DX: M25.532 Pain in left wrist (principal); M79.642 Pain in left hand; S69.92XA Unspecified injury of left wrist, hand and finger(s), initial encounter
CPT/HCPCS: 73218; 73221

== ENCOUNTER 2024-05-28 08:00 | Outpatient (RCR) | payer OTHER, SELFPAY | END 2024-05-28 23:59 | disposition home or self-care (01) | LOC: OT 08:00 | PROVIDERS: Visit Provider Physician Assistant | DX: M79.642 Pain in left hand (principal); S67.22XA Crushing injury of left hand, initial encounter | CPT/HCPCS: 97014; 97110; 97140; 97165; G0283 ==

== ENCOUNTER 2024-07-01 11:00 | Outpatient (RCR) | payer OTHER, SELFPAY | END 2024-07-01 23:59 | disposition home or self-care (01) | LOC: OT 11:00 | PROVIDERS: Visit Provider Physician Assistant | DX: S67.22XA Crushing injury of left hand, initial encounter (principal); S63.592A Other specified sprain of left wrist, initial encounter | CPT/HCPCS: 97014; 97110; 97140; 97168; G0283 ==

== ENCOUNTER 2024-08-17 11:26 | Emergency (ER) | payer MEDICARE, SELFPAY ==
--- NOTE | 2024-08-17 11:36 | ECG_ITS ---
APPROVED REPORT Exam: Resting ECG HR:77 bpm ECG Measurements Heart Rate 77 AXES HI 173 P 73 QRSd 88 QRS 74 QT 342 T 68 QTc 373 Conclusion SINUS RHYTHM WITH FREQUENT SUPRAVENTRICULAR PREMATURE COMPLEXES ABNORMAL RHYTHM ECG UNCONFIRMED REPORT Electronically signed by : MARTIN JACKSON, 08/18/2024 05:53:29
[2024-08-17 11:45] VITALS: BP 141/88; PULSE 79; RESP 19; TEMP 36.6; O2SAT 98; BMI 25.7
[2024-08-17 12:00] VITALS: BP 123/74; PULSE 82; RESP 17; O2SAT 94
--- NOTE | 2024-08-17 12:10 | XR_ITS ---
FINAL REPORT TECHNIQUE: Single view chest CLINICAL HISTORY: palpitations COMPARISON: 12/17/2023 FINDINGS: A single view of the chest was obtained. The heart and mediastinum are within normal limits. The lungs are clear. There is no pneumothorax. IMPRESSION: No acute cardiopulmonary process. Reviewed, Interpreted and Dictated by Yon Aguilar MD Transcribed by Andie Wilkins Authenticated and [facility]
[2024-08-17 12:18] LABS: Basophils % 0.2 % (0.1-2.0); Eosinophils # 0.1 K/mm3 (0.0-0.4); Eosinophils % 1.9 % (0.1-12.0); Hematocrit 41.3 % (42.0-52.0); Hemoglobin 14.7 g/dL (14.1-18.0); Lymphocytes # 1.6 K/mm3 (0.7-4.5); Mean Corpuscular HGB Conc 35.6 g/dL (31.8-35.4); Mean Corpuscular Hemoglobin 32.9 pg (27.0-31.2); Mean Corpuscular Volume 92.4 fl (80-94); Mean Platelet Volume 8.9 fl (7.4-10.4); Monocytes # 0.6 K/mm3 (0.1-1.0); Monocytes % 14.9 % (1.7-9.3); Neutrophils # 1.9 K/mm3 (1.8-7.8); Platelet Count 194 K/mm3 (142-424); Red Blood Count 4.47 M/mm3 (4.60-6.20); Red Cell Distribution Width 10.9 % (11.5-17.5); White Blood Count 4.2 K/mm3 (4.8-10.8)
[2024-08-17 12:30] VITALS: BP 114/71; PULSE 75; RESP 18; O2SAT 95
[2024-08-17 12:31] LABS: Alanine Aminotransferase 30 U/L (12-78); Albumin Level 4.2 g/dl (3.5-5.0); Albumin/Globulin Ratio 1.5 (1.1-1.8); Alkaline Phosphatase 50 U/L (38-126); Anion Gap 10.4 mEq/L (5-15); Aspartate Amino Transferase 31 U/L (17-59); Blood Urea Nitrogen 12 mg/dl (9-20); Calcium 9.7 mg/dl (8.4-10.2); Carbon Dioxide 25 mmol/L (22.0-30.0); Chloride 105 mmol/L (98-107); Creatinine Clearance Estimated 86 mL/min (50-200); Estimated Glomerular Filt Rate 112 ml/min (>60); GFR (African American) 136 ML/MIN (>60); Globulin 2.8 g/dL (1.3-3.2); Glucose 99 mg/dl (74-100); Lipase 89 U/L (23-300); Magnesium 2.1 mg/dl (1.6-2.3); Potassium 4.4 mmoL/L (3.5-5.1); Sodium 136 mmol/L (136-145)
--- NOTE | 2024-08-17 12:37 | ED_ITS ---
Discharge Plan Disposition Patient Disposition: Home, Self-Care Chief Complaint: Chest Pain Prescriptions Prescriptions: No Action atorvastatin 20 mg tablet 20 mg PO DAILY Patient Comments: TAKE 1 TABLET BY MOUTH ONCE DAILY irbesartan 75 mg tablet 75 mg PO DAILY Patient Comments: TAKE 1 TABLET BY MOUTH ONCE DAILY metoprolol succinate [Toprol XL] 50 mg tablet extended release 24 hr 50 mg PO DAILY Qty: 30 5RF Xarelto 20 mg tablet 20 mg PO DAILY Patient Comments: TAKE 1 TABLET BY MOUTH ONCE DAILY IN THE EVENING Referrals Follow up/Referrals: Mahendra Flor MD [Primary Care Provider] - See instructions Activity Restrictions/Add. Instructions Additional Instructions/Restrictions: Call your family doctor to establish care for this visit to the emergency department and schedule follow-up within 48 hours to ensure improvement. If you have any worsening of your condition or any other concerning signs or symptoms, return to the emergency department or your primary care doctor for further evaluation. Follow-up with cardiology about PVCs and palpitations. Clinical Impressions Clinical Impression: Frequent PVCs, Heart palpitations Print Language Print Language: Mohawk Discharge ED Provider: Wai Templeton [facility] General Chief Complaint: Chest Pain Stated Complaint: chest pain Time Seen by Provider: 08/17/24 11:29 Mode of Arrival: Ambulatory Source of Information: Patient and Spouse Description of Symptoms (Recalled from ER Triage Doc. by RN): pt states around 1015 he started having chest palpatations and pain. pt reports the pain is sternal, 7/10 and feels like pressure. pt reports a hx of a.fib. 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 History of Present Illness HPI narrative: Please note that above description of symptoms, in this electronic medical record under categorization of recalled from ER triage doctor by RN are reflective of an initial nursing assessment, however, is not reflective of my full history and physical exam that was personally taken and clarified. Consequentially, this preceding description of symptoms, which may include the patient's categorized chief complaint in the EMR, do not reflect my personal clinical impression, and the ultimate description of history of present illness and patient stated complaints should be deferred to this section of the note. Unless stated otherwise or congruent with this section of the note, additional signs, symptoms, or incongruence should be interpreted as inaccurate with my clinical impression. Related Data Home Medications ?Medication ?Instructions ?Recorded ?Confirmed atorvastatin 20 mg tablet 20 mg PO DAILY 12/17/23 08/17/24 irbesartan 75 mg tablet 75 mg PO DAILY 07/21/24 08/17/24 rivaroxaban 20 mg tablet (Xarelto) 20 mg PO DAILY 08/17/24 08/17/24 Previous Rx's ?Medication ?Instructions ?Recorded metoprolol succinate 50 mg 50 mg PO DAILY #30 tabs 07/26/24 tablet,extended release 24 hr (Toprol XL) Allergies Allergy/AdvReac Type Severity Reaction Status Date / Time Penicillins Allergy Hives Verified 08/17/24 12:08 [facility] Disclaimer: The information contained in this section may have been updated after the patient was seen, as this information can be updated by other users. Medical History History of left heart catheterization History of seizures Hallucination, visual Fever Headache Chest pain CAD (coronary artery disease) HLD (hyperlipidemia) HTN (hypertension) Cardiomyopathy Diverticulosis Vasovagal episode BRBPR (bright red blood per rectum) Colitis Palpitations Family history of coronary artery disease Afib History of TIA (transient ischemic attack) Alcohol use Surgical History History of colonoscopy History of hernia surgery Family History Other Cancer Coronary artery disease Social History Smoking Status: Never smoker second hand exposure: No alcohol intake: current alcohol intake frequency: a few times a week substance use type: denies use current occupational status: employed Travel in the last 8 weeks: None household members: spouse housing: house marital status: current occupation: [employer] current occupational exposures/hazards: No caffeine: Yes Have you lived/traveled outside [place] in past 30 days?: No Contact w/someone who lives/traveled outside US past 30 days?: No Exposure to someone with infectious disease in past 14 days?: No Do you have a fever (greater than 100.4 F or 38 C)?: No Have you tested positive for COVID-19: No Exposed to someone with COVID-19 in past 14 days?: No Do you have a sore throat?: No Do you have a cough?: No Do you have any weakness?: No Do you have any diarrhea?: No Are you experiencing any unusual bleeding?: No Do you have any muscle aches/pain?: No Do you have any abdominal pain?: No Are you experiencing loss of taste or smell?: No Other Medical History Have you received the Flu Vaccine for this season: No Have you received the Pneumonia Vaccine: No ROS Obtained: Yes All systems reviewed & no additional complaints except as documented Physical Exam General General appearance: alert Neck Neck exam: Present trachea midline Chest Chest inspection: Present normal inspection and symmetric chest wall rise Respiratory Respiratory exam: Present normal lung sounds bilaterally; Absent respiratory distress, wheezes, stridor, accessory muscle use or prolonged expiratory phase Cardiovascular Cardiovascular exam: Present regular rate, normal rhythm and other (Pulses equal and symmetric in upper and lower extremities) Extremities Exam Extremities exam: Absent edema Neurological Exam Neurological exam: Present alert, oriented X3 and CN II-XII intact Skin Skin exam: Present warm and dry; Absent cyanosis, diaphoresis or pallor HEART Score HEART Score HEART Score assessment performed?: Yes History (anamnesis): Slightly suspicious ECG: Normal Age: >65 years Risk factors: 3 or more risk factors Troponin: </= normal limit HEART Score: 4 Critical Care Critical Care Time Critical Care Time: No Medical Decision Making Medical Records Medical records reviewed: Yes I reviewed the patient's medical records. Chun Inquiry Pt receiving controlled substance: No Chun was queried for this patient: No Vital Signs Vital Signs: 08/17/24 11:45 08/17/24 12:00 08/17/24 12:30 Temperature 98 F Temperature Source Oral Pulse Rate 82 75 Pulse Rate [Left] 79 Respiratory Rate 19 17 18 Blood Pressure 123/74 114/71 Blood Pressure [Right Arm] 141/88 H Blood Pressure Mean 90 81 Blood Pressure Mean [Right Arm] 105 Blood Pressure Source [Right Arm] Automatic Cuff Blood Pressure Position [Right Arm] Sitting 02 Sat by Pulse Oximetry 98 94 L 95 Oxygen Delivery Method Room Air Lab Data Labs: Lab Results 08/17/24 11:29: WBC 4.2 L, RBC 4.47 L, Hgb 14.7, Hct 41.3 L, MCV 92.4, MCH 32.9 H, MCHC 35.6 H, RDW 10.9 L, Plt Count 194, MPV 8.9, Neut % (Auto) 45.0, Lymph % (Auto) 38.0, Carlton % (Auto) 14.9 H, Eos % (Auto) 1.9, Baso % (Auto) 0.2, Neut # (Auto) 1.9, Lymph # (Auto) 1.6, Carlton # (Auto) 0.6, Eos # (Auto) 0.1, Baso # (Auto) 0.0, PT 11.8, INR 1.06, APTT 29.3, Sodium 136, Potassium 4.4, Chloride 105, Carbon Dioxide 25, Anion Gap 10.4, BUN 12, Creatinine 0.70, Estimated Creat Clear 86, Estimated GFR 112, Est GFR ( Amer) 136, Glucose 99, Calcium 9.7, Magnesium 2.1, Total Bilirubin 1.0, AST 31, ALT 30, Alkaline Phosphatase 50, Troponin I < 0.01, NT-Pro-B Natriuret Pep 51.4, Total Protein 7.0, Albumin 4.2, Globulin 2.8, Albumin/Globulin Ratio 1.5, Lipase 89 08/17/24 11:29 08/17/24 11:29 Response Orders (Tests/Meds): ORDERS Category Date Time Status XR chest portable Stat Exams 08/17/24 12:10 Completed Complete Blood Count Auto Diff Stat Lab 08/17/24 11:29 Completed Comprehensive Metabolic Panel Stat Lab 08/17/24 11:29 Completed HIV Combo Stat Lab 08/17/24 11:29 Received Hepatitis C Ab Qual. W/ RFX Stat Lab 08/17/24 11:29 Received Lipase Stat Lab 08/17/24 11:29 Completed Magnesium Stat Lab 08/17/24 11:29 Completed NT Pro Brain Natriuretic Pep. Stat Lab 08/17/24 11:29 Completed PT INR [Prothrombin Time INR] Stat Lab 08/17/24 11:29 Completed PTT [Activated Partial Thrombo Time] Stat Lab 08/17/24 11:29 Completed T4 (Thyroxine) Stat Lab 08/17/24 11:29 Received TSH [Thyroid Stimulating Hormone] Stat Lab 08/17/24 11:29 Received Troponin I Q3H Lab 08/17/24 15:15 Ordered Troponin I Q3H Lab 08/17/24 18:15 Ordered Troponin I Stat Lab 08/17/24 11:29 Completed MDM Narrative Medical Decision Narrative: 69-year-old male presenting with palpitations. States has been going on for a couple weeks on and off. States that he does have A-fib and feels that his A- fib is acting up. Has a history of hypertension, hyperlipidemia, CHF, paroxysmal A-fib on Xarelto. Has not missed any doses or had any changes to his medications in general. Palpitations are substernal, feel as if they are currently going on, worse at night when he is lying down to go to sleep he realizes they are stronger and states that is keeping him from sleeping at night. No PND orthopnea. No lower extremity swelling. No neurologic deficits. Palpitations present without pain, do not radiate, no other associated symptoms. History was obtained via conversation with patient and significant other. On arrival, patient hemodynamically stable, alert, oriented x4, appropriate, GCS 15, moving all extremities spontaneously, pupils equal and reactive to light. Full physical exam performed and significant for very clinically well-appearing male no acute distress. Lungs are clear, cardiac exam without murmurs gallops or rubs. On the monitor, patient intermittently having PVCs. Lower extremities without edema. Pulses equal and symmetric in upper and lower extremities. Neurologically intact grossly. Differential includes metabolic abnormality, endocrinologic abnormality, ACS, [place], arrhythmia, anxiety, endocrinologic, among others. Patient placed on continuous cardiac monitoring and continuous pulse ox with initial blood pressure 141/88, heart rate 79, saturation 98% on room air. Independent interpretation of EKG shows sinus rhythm 77 bpm with frequent PVCs and nearly bigeminy. MS interval 173, QRS 88, QTc 373. Normal axis and no acute ischemic change. Workup independently interpreted and significant for nonactionable hematologic labs. Coags normal. Troponin and BNP both negative, lipase negative. On independent interpretation of chest x-ray, no acute intrathoracic process. See radiology read for full review of final results. Heart score 4. On reevaluation, patient resting comfortably. Given patient presentation, workup, history, this most likely represents PVCs and palpitations. Because patient at baseline without signs or symptoms of clinical decompensation, deemed appropriate for discharge. Results were relayed to patient who voiced understanding and were agreeable to outpatient management and follow up. I discussed my clinical impression with patient and answered all questions. At this time, the evidence for any other entities in the differential is insufficient to warrant any further testing or ED observation. This was explained as well. Advisory was given that persistent or worsening symptoms require further evaluation. I confirmed the understanding of this discussion. Recommended he follows up with cardiology. 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 Electronic blend plant operator of the spoken language may permit errors. Although I have reviewed the note, some errors may still exist.
[2024-08-17 12:38] LABS: Activated Partial Thrombo Time 29.3 seconds (22.8-30.6)
[2024-08-17 12:41] LABS: INR 1.06 (0.9-1.1); Prothrombin Time 11.8 seconds (10.1-12.5)
[2024-08-17 12:42] LABS: NT Pro Brain Natriuretic Pep. 51.4 pg/mL (0-125)
[2024-08-17 12:43] LABS: Troponin I < 0.01 ng/ml (0.00-0.034)
--- NOTE | 2024-08-17 12:49 | PC.NURSE ---
1222- Patient expresses no needs at this time. A & O x 4. No distress noted. Patient reports no palpitations since arriving to the ED.
[2024-08-17 13:22] LABS: Hepatitis C Ab Qual. W/ RFX NEGATIVE (Negative)
[2024-08-17 13:28] LABS: Thyroid Stimulating Hormone < 0.02 uIU/mL (0.465-4.68)
[2024-08-17 13:30] LABS: T4 (Thyroxine) 15.1 ug/dl (5.53-11.0)
[2024-08-17 13:33] VITALS: BP 130/78; PULSE 73; RESP 17; TEMP 37.1
[2024-08-17 13:45] LABS: HIV Combo NEGATIVE (Negative)
== END 2024-08-17 13:33 | disposition home or self-care (01) ==
PROVIDERS: Emergency Provider Emergency Medicine; PCP Family Medicine
DX: R00.2 Palpitations (principal); I49.3 Ventricular premature depolarization; R07.9 Chest pain, unspecified
CPT/HCPCS: 71045; 80053; 83690; 83735; 83880; 84436; 84443; 84484; 85025; 85610; 85730; 86803; 87389; 93005; 99284

== ENCOUNTER 2024-08-18 10:03 | Outpatient (CLI) | payer MEDICARE, SELFPAY | END 2024-08-18 23:59 | disposition home or self-care (01) | LOC: RT 10:04 | PROVIDERS: PCP Family Medicine; Visit Provider Nurse Practitioner | DX: R00.2 Palpitations (principal); I48.0 Paroxysmal atrial fibrillation | CPT/HCPCS: 93270 ==

== ENCOUNTER 2024-08-26 06:53 | Outpatient (CLI) | payer MEDICARE, SELFPAY ==
--- NOTE | 2024-08-26 | CA_ITS ---
APPROVED REPORT Exam: Exercise Treadmill Technologist: Chantelle Randall Ht: 6 ft 0 in Wt: 190 lbs BSA: 2.08 m2 HR: 66 bpm BP: 132/67 mmHg Rhythm: Nsr Medical History Medical History: HTN, Hyperlipidemia Medications: Atorvastatin, Irbesartan, Metoprolol Succinate ER, Pantoprazole, Rivaroxaban Allergies: Penicillin Cardiac Risk Factors: HTN, Hyperlipidemia, FHX of CAD Stress Test Details Test: Exercise stress testing was performed using a Arvin protocol. HR Resting HR: 84 bpm Max Heart Rate (APMHR): 152 bpm Max HR Achieved: 154 bpm Target HR (85% APMHR): 129 bpm % of APMHR: 101 Recovery HR: 84 bpm HR response to stress: Normal HR response to stress BP Resting BP: 132.0/67.0 mmHg Max BP: 180.0/82.0 mmHg Recovery BP: 151.0/66.0 mmHg BP response to stress: Normal blood pressure response to stress. ECG Resting ECG: Normal sinus rhythm Stress EC mm upsloping ST depression Clinical Exercise duration: 7:14 min Highest Stage Achieved: Stage 2: 2.5 mph at 12% grade. Exercise capacity: 10.3 METs Stress ECG Conclusion Pt had no symptoms Test stopped due to: Target HR achieved [address] depression Conclusion: Average exercise capacity. Equivocal ECG changes at peak stress. [facility] images are reported separately. Electronically signed by : Tarsha Sequeira MD 08/29/2024 21:49:04
--- NOTE | 2024-08-26 07:00 | NM_ITS ---
APPROVED REPORT Exam: Nuclear Stress Test Indication: chest pain Patient Location: Outpatient Stress Tech: Namita Lacey IN Tech:ROBERT Morin RT(R)(N) Ht: 6 ft 0 in Wt: 190 lbs HR: 66 bpm BP: 132/67 mmHg BSA: 2.08 m2 TID: 1.07 History: chest pain Procedure: Patient exercised on Arvin protocol 7:14 minutes and sec, resting heart rate 66 bpm, resting blood pressure 132/67 mmHg, with exercise maximum heart rate achived was 153 bpm which is 100 % of the maximum predicted heart rate and blood pressure was 180/82 mmHg. Test was stopped due to fatigue. Patient denied any complaint of chest pain. Patient has Average exercise capacity, achieved 10.3 METs of workload on treadmill, the blood pressure response to exercise was Normal. The pt was not able to lay on his abdomen for prone images Cardiac Stress and Resting SPECT Images: Cardiac Stress and Resting SPECT images were obtained using technetium 99m Myoview 30.8 mCi stress and 10.29 mCi at rest. Resting and stress imaging in supine positions demonstrate a large sized, moderate, partially reversible perfusion defect in the inferior LV wall. Gated imaging demonstrates low-normal global LV systolic function. There is mild hypokinesis of the inferior LV wall. LVEF is calculated at 52%. Conclusion: Large sized, moderate, partially reversible perfusion defect in the inferior LV wall. Findings are suggestive of partial reversible defect. Gated imaging demonstrates low-normal global LV systolic function. There is mild hypokinesis of the inferior LV wall. LVEF is calculated at 52%. Electronically signed by : Tarsha Sequeira MD 08/29/2024 21:45:25
[2024-08-26] MEDS: SODIUM CHLORIDE 0.9% 10ML SYR (RAD ONLY) 10 ML IV ×2 (09:38)
[2024-08-26] MEDS: ISOTOPE MYOVIEW (PER STUDY) 1 DOSE IV (09:38)
== END 2024-08-26 23:59 | disposition home or self-care (01) ==
LOC: RAD 06:54
PROVIDERS: PCP Family Medicine; Visit Provider Nurse Practitioner
DX: R00.2 Palpitations (principal); I48.0 Paroxysmal atrial fibrillation; I10 Essential (primary) hypertension; E78.5 Hyperlipidemia, unspecified; R07.9 Chest pain, unspecified
CPT/HCPCS: 78452; 93017; 93018; A9502

== ENCOUNTER 2024-08-27 09:19 | Outpatient (CLI) | payer MEDICARE, SELFPAY ==
--- NOTE | 2024-08-27 09:30 | CA_ITS ---
APPROVED REPORT EXAM: Comprehensive 2D, Doppler, and color-flow Echocardiogram Campus Coordinator: Rosa Maria Moreno RT(R) Ht: 6 ft 0 in Wt: 190lbs BSA: 2.08 BP: 128/70 mmHg Indications: AFIB, CP, palpitations, HTN, SAUCDEO, hyperlipidemia, CAD, hx CM, EF 45% echo 2020, 50% echo 2022. 2D Dimensions LVEF (Park's) 57.60 % M: 52 - 72 LV Volume 115.20 mL M: 62 - 150 LV Volume Index 55.4 mL/m2 M: 34 - 74 LA Volume 30.60 mL LA Volume Index 14.71 mL/m2 (M/F) 16-34 EF AP4 60.90 % EF AP2 55.4 % EF BP 57.6 % GL Strain -16.6 % M-Mode Dimensions RVDd 2.62 cm (0.9-2.6) LA Diam 3.31 cm (1.9-4.0) LVDd 5.23 cm (3.5-5.7) LVDs 3.58 cm (3.5-5.7) IVSd 0.89 cm (0.6-1.1) PWd 0.97 cm (0.6-1.1) EF (Teich) 59.10% FS 31.50% EDV (Teich) 131.20 mL ESV (Teich) 53.70 mL LV Diastology E Decel Time 193 (160-240 msec) E/A Ratio 0.8 Mitral Valve MV E Max Qamar. 64.0 (40-130 cm/s) MV A Velocity 76.0 (40-130 cm/s) E/A Ratio 0.84 MV PHT 57.0 ms Left Ventricle The left ventricle is normal size. The left ventricular systolic function is low normal. There is increased LV wall thickness. There is normal LV segmental wall motion. The left ventricular diastolic function is normal. LVEF is 50%. Right Ventricle Right ventricle is mildly dilated. The right ventricular systolic function is normal. Atria The left atrium is mildly dilated. The right atrium is mildly dilated. There is no Doppler evidence of interatrial shunt. Aortic Valve The aortic valve is mildly thickened. There is no aortic valvular stenosis. Trace aortic regurgitation. Mitral Valve The mitral valve is normal in structure. No evidence of mitral valve stenosis. Trace mitral regurgitation. Tricuspid Valve Tricuspid valve is grossly normal in structure and function. Trace tricuspid regurgitation. There is insufficient TR jet to estimate RVSP. Pulmonic Valve The pulmonary valve is normal in structure. Trace pulmonic regurgitation. Great Vessels The aortic root is normal in size. IVC is normal in size and collapses >50% with inspiration. Pericardium There is no pericardial effusion. Other Information Study Quality: Fair Conclusion Low normal biventricular systolic function (LVEF 50%). Mild RV dilation. Mild biatrial dilation. No significant valvular stenosis or regurgitation. Electronically signed by : Tarsha Sequeira MD 09/07/2024 12:32:53
== END 2024-08-27 23:59 | disposition home or self-care (01) ==
LOC: RT 09:20
PROVIDERS: PCP Family Medicine; Visit Provider Nurse Practitioner
DX: I51.7 Cardiomegaly (principal); R00.2 Palpitations; I48.0 Paroxysmal atrial fibrillation
CPT/HCPCS: 93306

== ENCOUNTER 2024-08-27 15:00 | Outpatient (RCR) | payer OTHER, SELFPAY | END 2024-08-27 23:59 | disposition home or self-care (01) | LOC: OT 15:00 | PROVIDERS: PCP Family Medicine; Visit Provider Physician Assistant | DX: S63.592A Other specified sprain of left wrist, initial encounter (principal) | CPT/HCPCS: 97014; 97110; 97140; 97165; G0283 ==

== ENCOUNTER 2024-09-21 09:00 | Outpatient (RCR) | payer OTHER, SELFPAY ==
--- NOTE | 2024-09-13 10:51 | HMH.RHREAS ---
Rehab Reassessment Rehab OP Re-assessment Start: 09/06/24 13:54 Freq: Status: Active Protocol: Document 09/13/24 10:31 THOMAS (Rec: 09/13/24 10:50 RMCORNELIO [id number]) E-signed By Ernesto Grajeda OT Rehab Re-assessment Subjective Subjective I do think it's a lot better. Objective Objective Notes Pt continues to be seen twice a week in order to address left hand deficits. Each session, pt receives PROM manual stretching to left wrist/digits in all planes. He also engages in wrist and hand/construction lineman strengthening exercises to improve construction lineman and tip strength of left hand. Modalities are provided in order to decrease pain/ inflammation to improve overall use of left hand. Assessment Progress Assessment Progressing as Expected Assessment Notes Pt reports an improvement overall with functional use of left hand and a decrease in pain. He reports his worst pain now only reaches 1-2/10. Pt's left hand construction lineman strength has improved significantly overall. He returns to doctor at the end of August for follow up. Pt is still off of work at this time, but is eager to return. Current L hand construction lineman strength L full construction lineman: 63 pounds Lateral Pinch: 18 pounds Tip to tip: 17 lbs Patient goals met LT-4 LT-4 Goals Not Met See below Revised Goals New Payroll Examiner strength goals: L hand construction lineman strength: 65-70 lbs L lateral pinch: 25# L tip to tip: 20# Plan Plan Continue with OT plan of care at this time. Frequency of Therapy 2x's a week Duration of therapy 4 more weeks Time and Billing Re-Eval Time 8 Re-Eval Billing Units 1 Charge for OT reassessment? Yes PHYSICIAN CERTIFICATION: I certify the specified therapy services for Victor Hugo Munoz are required, authorized, and reviewed every 30 days.
== END 2024-09-21 23:59 | disposition home or self-care (01) ==
LOC: OT 09:00
PROVIDERS: PCP Family Medicine; Visit Provider Physician Assistant
DX: S63.592A Other specified sprain of left wrist, initial encounter (principal)
CPT/HCPCS: 97014; 97110; 97140; 97168; G0283

== ENCOUNTER 2024-09-27 11:46 | Outpatient (CLI) | payer MEDICARE, SELFPAY ==
[2024-09-27 11:52] VITALS: BMI 25.3
[2024-09-27] MEDS: IVABRADINE HCL 7.5MG TABLET PO (12:14)
[2024-09-27] MEDS: METOPROLOL TARTRATE 25MG TABLET 25 MG (12:14)
[2024-09-27 12:17] VITALS: BP 119/71; PULSE 65; RESP 16; O2SAT 96
[2024-09-27 12:19] LABS: Chloride 104 mmol/L (98-107)
[2024-09-27 12:20] LABS: Potassium 4.2 mmoL/L (3.5-5.1); Sodium 137 mmol/L (136-145)
[2024-09-27 12:23] LABS: Anion Gap 8.2 mEq/L (5-15); Blood Urea Nitrogen 14 mg/dl (9-20); Calcium 9.4 mg/dl (8.4-10.2); Carbon Dioxide 29 mmol/L (22.0-30.0); Creatinine Clearance Estimated 85 mL/min (50-200); Estimated Glomerular Filt Rate 96 ml/min (>60); GFR (African American) 116 ML/MIN (>60); Glucose 89 mg/dl (74-100)
--- NOTE | 2024-09-27 13:00 | CT_ITS ---
APPROVED REPORT Firmware Test Engineer: CLINICAL INDICATION Chest Pain TECHNIQUE Image Acquisition: A 128 slice MDCT scanner (Xeroxa View) was used for data acquisition. A noncontrast coronary calcium scan was performed. A CT attenuation threshold of 130 Hounsfield units (HU) was used for the detection of calcium in contiguous voxels of 1 sq mm in area to be counted as individual lesions. Bolus tracking in the ascending aorta with a threshold of 180 HU was performed. Immediately afterwards, ECG synchronized cardiac CT was then performed from the cardiac base to apex using retrospective gating with ECG tube current modulation. A total of 85 mL of Isovue 370 mg/mL contrast medium was administered at 5 mL/sec followed by a saline flush using a biphasic injection protocol. A tube voltage of 120 KVp was used. The patient received the following medications prior to the cardiac CT. 25 mg of oral metoprolol 15 mg of oral ivabradine 0.4 mg of sublingual nitroglycerin The average heart rate at the time of acquisition was 57 bpm and regular. Image Reconstruction Transaxial images were reconstructed at 0.67 mm slide thickness. Data was reviewed interactively on an advanced workstation capable of 2 and 3-dimensional displays in all conventional reconstruction formats, including multiplanar reformations, maximum intensity projections, curved multiplanar reformations, and volume rendered reconstructions. When applicable, selected routine images describing the relevant coronary anatomy and pathology were saved and sent to PACS. Complications None Technical Quality Overall image quality was good. Coronary artery opacification was adequate. Total DLP (Dose-Length Product) is 1529.3 mGy-cm. The reported value represents the total of one or more individual components during the CT acquisition of this date and at this time, and as such, the same value may appear in more than one CT report depending on the interpreting/reporting physicians. COMPARISON None FINDINGS CT Coronary Calcium Scoring LMA (Left Main Artery) = 5 LAD (Left Anterior Descending) = 47 LCX (Left Coronary Circumflex) = 0 RCA (Right Coronary Artery) = 0 Total Calcium Score = 52 using the AJ-130 method. The observed calcium score of 52 is at 38th percentile for subjects of the same age, sex, and race/ethnicity. The interpretation of the calcium heart score is based on the following continuum*: 0 = no calcified plaque detected (risk of coronary artery disease is very low ??? less than 5%) 1-10 = calcium detected in extremely minimal levels (risk of coronary diseases is still low ??? less than 10%) 11-100 = mild levels of plaque detected with certainty (mild or minimal narrowing of heart arteries is likely) 101-400 = definite,at least moderate levels of plaque detected (relatively high risk of a heart attack within 3-5 years) >401-999 = extensive levels of plaque detected (high risk of heart attack, high levels of vascular disease are present, high likelihood of at least one significant coronary narrowing) *The calcium heart score quantifies the burden of coronary calcification/plaque in the coronary arteries. The calcium heart score is not able to evaluate the presence or burden of non-calcified (i.e. soft) plaque. There is also mild calcification in the aortic valve and the descending thoracic aorta. Coronary CT Angiography The coronary arterial system is right dominant. Quantitative Stenosis Grading: Left Main (LM): The left main originates normally from the left sinus of Valsalva. The LM bifurcates into the left anterior descending artery and left circumflex artery. The LM is patent with no evidence of atherosclerosis. Left Anterior Descending (LAD) and Diagonal Branches: The LAD gives off 2 diagonal branch(es). There is mixed calcified/non-calcified plaque in the proximal LAD with up to 25-49% luminal stenosis. There is no evidence of LAD-myocardial bridge. Left Circumflex (LCX) and Obtuse Marginals (OM): The LCX gives off 1 Obtuse Marginal (OM) branch(es). The LCX and its branches are patent with no evidence of atherosclerosis. Right Coronary Artery (RCA): The RCA originates normally from the right sinus of Valsalva. The RCA gives off a posterior descending artery (PDA) and posterolateral (PL) branches. The RCA and its branches are patent with no evidence of atherosclerosis. Non-Coronary Cardiac Findings: Analysis of the left ventricular (LV) structure and function was performed after 3-D reconstruction of the LV from axial images, with user-corrected automatic contouring for assessment of LV volumes and user-defined reconstruction from oblique planes for measurement of 3-D cardiac structure and function. -The left ventricle systolic function is normal. -There is no left atrial appendage filling defect. Two right pulmonary veins and two left pulmonary veins drain normally into the left atrium. -No pericardial thickening or calcification. -Central and branch pulmonary arteries in the [id number] are unremarkable. -Thoracic aorta within the visualized thoracic aortic-branches in the [id number] is unremarkable. Extracardiac Structures No significant extra-cardiac findings. Note, however, that this study is focused on the cardiac findings. IMPRESSION -Presence of coronary calcification with an Agatston score = 52 using the AJ-130 method. -The observed calcium score of 52 is at 38th percentile for subjects of the same age, sex, and race/ethnicity. -Mild, atherosclerotic plaque in the proximal LAD, with no evidence of significant flow-limiting atherosclerosis. -CAD-RADS 2. Management recommendations per ACC/AHA guidelines*, as clinically appropriate. *Recommendations: CAD RADS 0: Reassurance. Consider non-atherosclerotic causes of chest pain. CAD RADS 1: Consider non-atherosclerotic causes of chest pain. Consider preventive therapy and risk factor modification. CAD RADS 2: Consider non-atherosclerotic causes of chest pain. Consider preventive therapy and risk factor modification, particularly for patients with nonobstructive plaque in multiple segments. CAD RADS 3: Consider further functional testing. Consider symptom-guided anti-ischemic and preventive pharmacotherapy as well as risk factor modification per published guideline statements. CAD RADS 4A: Consider further functional testing or invasive coronary angiography with revascularization per published guideline statements. Consider symptom-guided anti-ischemic and preventive pharmacotherapy as well as risk factor modification per published guideline statements. CAD RADS 4B: Invasive coronary angiography recommended with revascularization per published guideline statements. Consider symptom-guided anti-ischemic and preventive pharmacotherapy as well as risk factor modification per published guideline statements. CAD RADS 5: Consider invasive angiography and/or viability assessment with revascularization per published guideline statements. Consider symptom-guided anti-ischemic and preventive pharmacotherapy as well as risk factor modification per published guideline statements. CRITICAL RESULT None COMMUNICATION Per this written report The coronary and cardiac findings of this CCTA were reviewed, reported, and signed by Matthew Sequeira MD (Soap Worker) Conclusion Electronically signed by : Tarsha Sequeira MD 09/29/2024 13:16:06
[2024-09-27 13:37] VITALS: BP 130/79; PULSE 65; RESP 16; O2SAT 97
[2024-09-27] MEDS: NITROGLYCERIN 0.4MG SL TABLET SL (13:37)
[2024-09-27 13:40] VITALS: BP 127/69; PULSE 62; RESP 18; O2SAT 98
[2024-09-27] MEDS: SODIUM CHLORIDE 0.9% 10ML SYR (RAD ONLY) 10 ML IV (13:43)
[2024-09-27] MEDS: 0.9 % SODIUM CHLORIDE 50 ML VIAL IV (13:43)
[2024-09-27] MEDS: IOPAMIDOL-370 (76%);100ML BOTTLE 85 ML IV (13:44)
== END 2024-09-27 14:00 | disposition home or self-care (01) ==
PROVIDERS: PCP Family Medicine; Visit Provider Nurse Practitioner
DX: R93.1 Abnormal findings on diagnostic imaging of heart and coronary circulation (principal); I25.10 Atherosclerotic heart disease of native coronary artery without angina pectoris
CPT/HCPCS: 75574; 80048; Q9967

== ENCOUNTER 2025-01-19 15:21 | Outpatient (CLI) | payer MEDICARE, SELFPAY ==
--- OUTSIDE RECORDS SUMMARY | 2025-01-19 15:29 | XMS_ITS | Encounter Summary ---
Author Organization [facility] Address [address] [place] [address] Care Team Providers Care Nurse Quality Name Role Phone Mahendra Flor MD Primary Care Provider [phone] Reason for Visit * Reason Comments Med Refill Encounter Details Date Type Department Care Team (Late st Contact Info) Description 01/15/2025 Refill [facility] [address] [phone] Aaliyah Finn PA-C [address] [place] [id number] Hyperthyroidism Social History Tobacco Use Types Packs/Day Years Used Date Smoking Tobacco: Former Cigarettes Passive Smoke Exposure: Past Alcohol Use Standard Drinks/Week Comments Yes 0 (1 standard drink = 0.6 oz pur e alcohol) rarely Sex and Gender Information Value Date Recorded Sex Assigned at Not on file Legal Sex Male 1:18 PM EDT Gender Identity Not on file Sexual Orientation Not on file documented as of this encounter Miscellaneous Notes * Telephone Encounter - Leona Lindquist MA - 01/17/2025 10:24 AM EDT Rx Refill Note Requested Prescriptions Pending Prescriptions Disp Refills methIMAzole (TAPAZOLE) 10 MG tablet [Pharmacy Med Name: methIMAzole 10 MG Oral Tablet] 180 tablet 0 Sig: Take 1 tablet by mouth twice daily Last office visit with prescribing clinician: 10/19/2024 Next office visit with prescribing clinician: 02/25/2025 Leona Lindquist MA 08/18/25, 10:24 EDT documented in this encounter Plan of Treatment Upcoming Encounters Date Type Department Care Team (Late st Contact Info) Description 02/25/2025 1:30 PM EDT Office Visit [facility] [address] [phone] Aaliyah Finn PA-C [address] [address] documented as of this encounter Visit Diagnoses Diagnosis Hyperthyroidism Thyrotoxicosis without mention of goiter or other cause, without mention of thyrotoxic crisis or storm documented in this encounter Care Teams Nurse Quality Relationship Specialty Start Date End Date Mahendra Flor MD [address] [facility] [address] [facility] [address] [place] [address] PCP - General Family Medicine 10/19/24 documented as of this encounter
--- OUTSIDE RECORDS SUMMARY | 2025-01-19 15:29 | XMS_ITS | Clinical Summary ---
Author Organization [facility] Address [address] [place] [address] Care Team Providers Care Nurseryperson Name Role Phone Mahendra Flor MD Primary Care Provider [phone] Allergies Active Allergy Reactions Criticality Noted Date Comments Penicillins Hives 10/19/2024 Medications atorvastatin (LIPITOR) 20 MG tablet Take 1 tablet by mouth Daily. 5 Active irbesartan (AVAPRO) 75 MG tablet Take 1 tablet by mouth Daily. 5 Active metoprolol succinate XL (TOPROL-XL) 100 MG 24 hr tablet Take 1 tablet by mouth Daily. 5 Active Xarelto 20 MG tablet Take 1 tablet by mouth Every Evening. 5 Active methIMAzole (TAPAZOLE) 10 MG tabletIndicatio ns:Hyperthyroid ism Take 1 tablet by mouth twice daily 180 tablet 5 Active methIMAzole (TAPAZOLE) 10 MG tabletIndicatio ns:Hyperthyroid ism Take 1 tablet by mouth 2 (Two) Times a Day for 90 days. 180 tablet 5 01/18/20 25 Discontinued Active Problems Problem Noted Date Diagnosed Date Hyperthyroidism 10/19/2024 Assessment & Plan (10/19/2024 1:58 PM EDT): Pituitary thyroid axis discussed in detail, lab results explained to patient Discussed etiology of hyperthyroidism including thyroiditis, Graves' disease, and toxic nodule Check TSH, free T3, free T4, TSI today Cbc, cmp since patient already initiated on methimazole 07/2024 Continue methimazole 5 mg twice a day, adjust medications based on labs Discussed treatment of Graves' disease could be medication, radioactive iodine therapy, and even surgery if symptoms cannot be controlled with medication Ultrasound did not demonstrate any dominate nodules that could be toxic in nature, normal sized thyroid without thyromegaly Follow-up 3 months Hoarseness or changing voice 10/19/2024 Assessment & Plan (10/19/2024 1:47 PM EDT): Barium swallow with PCP, patient has a follow-up appointment next week Other dysphagia 10/19/2024 Assessment & Plan (10/19/2024 1:50 PM EDT): Plan is barium swallow with pcp, patient sees him next week Encounters Date Type Department Care Team Description 01/15/2025 Refill [facility] [address] [place] [phone] Aaliyah Finn PA-C Hyperthyroidism 10/20/2024 Results Follow-Up [facility] [address] [phone] Aaliyah Finn PA-C 10/19/2024 1:35 PM EDT Ancillary Procedure [facility] [address] [phone] Hyperthyroidism; Other dysphagia; Hoarseness or changing voice 10/19/2024 1:00 PM EDT Office Visit [facility] [address] [phone] Aaliyah Finn PA-C Hyperthyroidism (Primary Dx); Other dysphagia; Hoarseness or changing voice 10/19/2024 Travel from Last 3 Months Family History Medical History Relation Name Comments Cancer Father Thyroid disease Mother Relation Name Status Comments Father Mother Social History Tobacco Use Types Packs/Day Years Used Date Smoking Tobacco: Former Cigarettes Passive Smoke Exposure: Past Tobacco Cessation:Counseling Given: Not Answered Alcohol Use Standard Drinks/Week Comments Yes 0 (1 standard drink = 0.6 oz pur e alcohol) rarely Sex and Gender Information Value Date Recorded Sex Assigned at Not on file Legal Sex Male 1:18 PM EDT Gender Identity Not on file Sexual Orientation Not on file Last Filed Vital Signs Vital Sign Reading Time Taken Comments Blood Pressure 120/79 10/19/2024 12:47 PM EDT Pulse 75 10/19/2024 12:47 PM EDT Temperature - - Respiratory Rate - - Oxygen Saturation 98% 10/19/2024 12:47 PM EDT Inhaled Oxygen Concentration - - Weight 83.2 kg (183 lb 8 oz) 10/19/2024 12:47 PM EDT Height 182.9 cm (6') 10/19/2024 12:47 PM EDT Body Mass Index 24.89 10/19/2024 12:47 PM EDT Plan of Treatment Upcoming Encounters Date Type Department Care Team (Late st Contact Info) Description 02/25/2025 1:30 PM EDT Office Visit [facility] [address] [phone] Aaliyah Finn PA-C [address] [facility] [employer] [address] Health Maintenance Due Date Last Done Comments TDAP/TD VACCINES (1 - Tdap) 1975 COLOGUARD 2001 COLON CANCER SCREENING 5 YEA R SIGMOIDOSCOPY 2001 COLONOSCOPY 2001 [address] CANCER SCREENING 2001 CT COLONOGRAPHY 2001 FECAL OCCULT BLOOD TEST 2001 FIT Testing (1 year) 2001 ZOSTER VACCINE (1 of 2) 2006 AAA SCREEN ONCE 2021 COVID-19 Vaccine ( - 2023-2 5 season) 2024 02/19/2024, 03/06/2023, 01/28/2022, Additional history exists ANNUAL WELLNESS VISIT 09/27/2024 HEPATITIS C SCREENING 09/27/2024 INFLUENZA VACCINE 03/02/2025 02/19/2024, , 01/28/2022, Additional history exists Pneumococcal Vaccine 50+ Completed 06/13/2023 Procedures Procedure Name Priority Date/Time Associated Diagnosis Comments US THYROID Routine 10/19/2024 1:33 PM EDT Hyperthyroidism Other dysphagia Hoarseness or changing voice CBC AND DIFFERENTIAL Routine 10/19/2024 1:21 PM EDT Hyperthyroidism CBC WITH AUTO DIFFERENTIAL Routine 10/19/2024 1:21 PM EDT Hyperthyroidism COMPREHENSIVE METABOLIC PANEL Routine 10/19/2024 1:21 PM EDT Hyperthyroidism THYROID STIMULATING IMMUNOGLOBULIN Routine 10/19/2024 1:21 PM EDT Hyperthyroidism T3, FREE Routine 10/19/2024 1:21 PM EDT Hyperthyroidism T4, FREE Routine 10/19/2024 1:21 PM EDT Hyperthyroidism TSH Routine 10/19/2024 1:21 PM EDT Hyperthyroidism from Last 3 Months Results * US Thyroid (10/19/2024 1:33 PM EDT) Narrative SYSTEMGENERATED, DOCUMENTATION - 10/19/2024 1:33 PM EDT This procedure was auto-finalized with no dictation required. us Aaliyah Finn PA-C IMMarcos US ORDERABLES Final Res ult * (ABNORMAL) CBC Auto Differential (10/19/2024 1:21 PM EDT) WBC 5.36 3.40 - 10.80 10*3/mm3 10/19/2024 11:10 PM EDT [facility] RBC 4.75 4.14 - 5.80 10*6/mm3 10/19/2024 11:10 PM EDT [facility] Hemoglobin 14.9 13.0 - 17.7 g/dL 10/19/2024 11:10 PM EDT [facility] Hematocrit 44.2 37.5 - 51.0 % 10/19/2024 [facility] MCV 93.1 79.0 - 97.0 fL 10/19/2024 11:10 PM EDT [facility] MCH 31.4 26.6 - 33.0 pg 10/19/2024 11:10 PM [facility] MCHC 33.7 31.5 - 35.7 g/dL 10/19/2024 11:10 PM [facility] RDW 11.9(L) 12.3 - 15.4 % 10/19/2024 11:10 PM [facility] RDW-SD 40.8 37.0 - 54.0 fl 10/19/2024 11:10 PM [facility] MPV 8.7 6.0 - 12.0 fL 10/19/2024 11:10 PM [facility] Platelets 184 140 - 450 10*3/mm3 10/19/2024 11:10 PM [facility] Neutrophil % 55.2 42.7 - 76.0 % 10/19/2024 11:10 PM [facility] Lymphocyte % 31.2 19.6 - 45.3 % 10/19/2024 11:10 PM [facility] Monocyte % 11.9 5.0 - 12.0 % 10/19/2024 11:10 PM [facility] Eosinophil % 1.1 0.3 - 6.2 % 10/19/2024 11:10 PM [facility] Basophil % 0.2 0.0 - 1.5 % 10/19/2024 11:10 PM [facility] Immature Grans % 0.4 0.0 - 0.5 % 10/19/2024 11:[facility] Neutrophils, Absolute 2.96 1.70 - 7.00 10*3/mm3 10/19/2024 11:10 PM [facility] Lymphocytes, Absolute 1.67 0.70 - 3.10 10*3/mm3 10/19/2024 11:10 PM [facility] Monocytes, Absolute 0.64 0.10 - 0.90 10*3/mm3 10/19/2024 11:10 PM EDT [facility] Eosinophils, Absolute 0.06 0.00 - 0.40 10*3/mm3 10/19/2024 11:10 PM EDT [facility] Basophils, Absolute 0.01 0.00 - 0.20 10*3/mm3 10/19/2024 11:10 PM EDT [facility] Immature Grans, Absolute 0.02 0.00 - 0.05 10*3/mm3 10/19/2024 11:10 PM EDT [facility] nRBC 0.0 0.0 - 0.2 /100 WBC 10/19/2024 11:10 PM EDT [facility] Blood Venipuncture / Unknown 10/19/2024 1:21 PM EDT 10/19/2024 1:22 PM EDT [employer] PA-C LAB BLOOD ORDERABLES Final Result [facility]
[address] [place] [address], * Thyroid Stimulating Immunoglobulin (10/19/2024 1:21 PM EDT) Pathologist [facility] Thyroid Stimulating Immunoglobulin 0.43 0.00 - 0.55 IU/L 10/23/2024 5:09 PM EDT [facility] Blood Structure of left upper limb / Unknown Venipuncture / Unknown 10/19/2024 1:21 PM EDT 10/19/2024 1:22 PM EDT Narrative [facility] - 10/23/2024 5:09 PM EDT Performed at: [address] [place] [id number] [employer] Officer: Raj Soto MD, Phone: [phone] [employer] PA-C LAB BLOOD ORDERABLES Final Result [facility] [address] [place] [address], * (ABNORMAL) T3, Free (10/19/2024 1:21 PM EDT) T3, Free 4.94(H) 2.00 - 4.40 pg/mL 10/20/2024 12:59 AM EDT [facility] Blood Venipuncture / Unknown 10/19/2024 1:21 PM EDT 10/19/2024 1:22 PM EDT Aaliyah [employer] PA-C LAB BLOOD ORDERABLES Final Result Performing Organization Address [facility] Co de Phone Number [facility]
[address] [place] [address], * (ABNORMAL) TSH (10/19/2024 1:21 PM EDT) [facility] TSH <0.005(L) 0.270 - 4.200 uIU/mL 10/20/2024 12:59 AM EDT [facility] Blood Venipuncture / Unknown 10/19/2024 1:21 PM EDT 10/19/2024 1:22 PM EDT Aaliyah [employer] PA-C LAB BLOOD ORDERABLES Final Result Performing Organization Address [facility] Co de Phone Number [facility]
[address] [place] [address], * (ABNORMAL) T4, Free (10/19/2024 1:21 PM EDT) Free T4 1.70(H) 0.92 - 1.68 ng/dL 10/20/2024 12:59 AM EDT [facility] Blood Venipuncture / Unknown 10/19/2024 1:21 PM EDT 10/19/2024 1:22 PM EDT Aaliyah Finn PA-C LAB BLOOD ORDERABLES Final Result [facility]
[address] [place] [address], * Comprehensive Metabolic Panel (10/19/2024 1:21 PM EDT) Glucose 84 65 - 99 mg/dL 10/20/2024 12:56 AM T [facility] BUN 12 8 - 23 mg/dL 10/20/2024 12:56 AM [facility] Creatinine 0.78 0.76 - 1.27 mg/dL 10/20/2024 12:56 AM [facility] Sodium 138 136 - 145 mmol/L 10/20/2024 12:56 AM [facility] Potassium 4.1 3.5 - 5.2 mmol/L 10/20/2024 12:56 AM [facility] Chloride 104 98 - 107 mmol/L 10/20/2024 12:56 AM [facility] CO2 23.0 22.0 - 29.0 mmol/L 10/20/2024 12:56 AM [facility] Calcium 9.5 8.6 - 10.5 mg/dL 10/20/2024 12:56 AM [facility] Total Protein 7.3 6.0 - 8.5 g/dL 10/20/2024 12:56 AM [facility] Albumin 4.3 3.5 - 5.2 g/dL 10/20/2024 12:56 AM [facility] ALT (SGPT) 17 1 - 41 U/L 10/20/2024 12:56 AM [facility] AST (SGOT) 19 1 - 40 U/L 10/20/2024 12:56 AM [facility] Alkaline Phosphatase 73 39 - 117 U/L 10/20/2024 12:56 AM [facility] Total Bilirubin 0.8 0.0 - 1.2 mg/dL 10/20/2024 12:56 AM T [facility] Globulin 3.0 gm/dL 10/20/2024 12:56 AM T [facility] A/G Ratio 1.4 g/dL 10/20/2024 12:56 AM T [facility] BUN/Creatinine Ratio 15.4 7.0 - 25.0 10/20/2024 12:56 AM EDT [facility] Anion Gap 11.0 5.0 - 15.0 mmol/L 10/20/2024 12:56 AM [facility] eGFR 97.1 >60.0 mL/min/1.7 3 10/20/2024 12:56 AM [facility] Blood Venipuncture / Unknown 10/19/2024 1:21 PM EDT 10/19/2024 1:22 PM EDT [facility] - 10/20/2024 12:56 AM EDT GFR Categories in Chronic Kidney Disease (CKD) GFR Category GFR (mL/min/1.73) Interpretation G1 90 or greater Normal or high (1) G2 60-89 Mild decrease (1) G3a 45-59 Mild to moderate decrease G3b 30-44 Moderate to severe decrease G4 15-29 Severe decrease G5 14 or less Kidney failure (1)In the absence of evidence of kidney disease, neither GFR category G1 or G2 fulfill the criteria for CKD. eGFR calculation 2020 CKD-EPI creatinine equation, which does not include race as a factor us Aaliyah Finn PA-C LAB BLOOD ORDERABLES Final Result [facility]
[address] [place] [address], from Last 3 Months Insurance [employer] MEDICARE ADVANTAGE PPO Care Teams Nurseryperson Relationship Specialty Start Date End Date Mahendra Flor MD [address] [facility] [address] [place] [address] PCP - General Family Medicine 10/19/24
--- OUTSIDE RECORDS SUMMARY | 2025-01-19 15:29 | XMS_ITS | Encounter Summary ---
Author Organization [facility] Address [address] [place] [address] Care Team Providers Care Sprinkler Driver Name Role Phone Mahendra Flor MD Primary Care Provider [phone] Encounter Details Date Type Department Care Team (Late st Contact Info) Description 10/20/2024 Results Follow-Up [facility] [address] [phone] Aaliyah Finn PA-C [address] [place] [phone] Social History Tobacco Use Types Packs/Day Years [...] encounter Miscellaneous Notes * Telephone Encounter - Aaliyah Finn PA-C - 10/20/2024 7:53 AM EDT Please call patient and let him know that he needs a higher dose of his medication because his labsindicate he is still making too much thyroid hormone. He should increase the dose to 10 mg twice a day. I will send in new prescription now. documented in this encounter Plan of Treatment Upcoming Encounters Date Type Department Care Team (Late st Contact Info) Description 02/25/2025 1:30 PM EDT Office Visit [facility] [address] [facility] [address] [place] [phone] Aaliyah Finn PA-C [address] [address] documented as of this encounter Visit Diagnoses Diagnosis Hyperthyroidism- Primary Thyrotoxicosis without mention of goiter or other cause, without mention of thyrotoxic crisis or storm documented in this encounter Care Teams Sprinkler Driver Relationship Specialty Start Date End Date Mahendra Flor MD [address] [facility] [address] [facility] [address] [place] [address] PCP - General Family Medicine 10/19/24 documented as of this encounter
[2025-01-19 16:14] LABS: Hematocrit 40.8 % (42.0-52.0); Hemoglobin 13.9 g/dL (14.1-18.0); Immature Granulocytes % 0.5 %; Mean Corpuscular HGB Conc 34.1 g/dL (31.8-35.4); Mean Corpuscular Hemoglobin 31.8 pg (27.0-31.2); Mean Corpuscular Volume 93.4 fl (80-94); Nucleated Red Blood Cells % 0 %; Platelet Count 166 K/mm3 (142-424); Red Blood Count 4.37 M/mm3 (4.60-6.20); Red Cell Distribution Width-SD 43.7 fL; White Blood Count 5.9 K/mm3 (4.8-10.8)
[2025-01-19 16:33] LABS: Albumin Level 4.2 g/dl (3.5-5.0); Chloride 108 mmol/L (98-107); Potassium 4.4 mmoL/L (3.5-5.1); Sodium 137 mmol/L (136-145)
[2025-01-19 16:35] LABS: Bilirubin,Unconjugated 0.4 mg/dL (0.0-1.1); Blood Urea Nitrogen 13 mg/dl (9-20); Creatinine,Serum 0.70 mg/dl (0.66-1.25); Estimated Glomerular Filt Rate 112 ml/min (>60); GFR (African American) 136 ML/MIN (>60)
[2025-01-19 16:36] LABS: Alanine Aminotransferase 21 U/L (12-78); Alkaline Phosphatase 82 U/L (38-126); Anion Gap 9.4 mEq/L (5-15); Aspartate Amino Transferase 26 U/L (17-59); Bilirubin,Direct 0.2 mg/dl (0.0-0.4); Bilirubin,Indirect 0.4 mg/dL (0.0-0.9); Bilirubin,Total 0.6 mg/dl (0.2-1.3); Calcium 9.3 mg/dl (8.4-10.2); Carbon Dioxide 24 mmol/L (22.0-30.0); Cholesterol 173 mg/dl (140-200); Glucose 84 mg/dl (74-100); Magnesium 2.1 mg/dl (1.6-2.3); Total Protein,Serum 6.7 g/dl (6.3-8.2); Triglycerides 212 mg/dl (30-150)
[2025-01-19 16:37] LABS: HDL Cholesterol 63 mg/dl (40-60)
[2025-01-19 17:01] LABS: Free T4 (Free Thyroxine) 0.66 ng/dl (0.78-2.19)
[2025-01-19 17:07] LABS: Thyroid Stimulating Hormone 1.90 uIU/mL (0.465-4.68)
== END 2025-01-19 23:59 | disposition home or self-care (01) ==
PROVIDERS: PCP Family Medicine; Visit Provider Nurse Practitioner
DX: I25.10 Atherosclerotic heart disease of native coronary artery without angina pectoris (principal); I10 Essential (primary) hypertension
CPT/HCPCS: 36415; 80048; 80061; 80076; 83735; 84439; 84443; 85025